=== PATIENT | male | born 1970 | race Caucasian/White ===

== ENCOUNTER 2017-07-06 12:10 | Outpatient (RCR) | payer OTHER, MEDICAID, SELFPAY ==
--- NOTE | 2017-07-06 11:12 | PT.OTN ---
Current Diagnoses Stiffness of unspecified joint, not elsewhere classified (07/06/17) Weakness (07/06/17) Strain of muscle, fascia and tendon at neck level, subsequent encounter (07/06/17) Arthrodesis status (07/06/17) Transition note: On July 05, 2017 our therapy services consisting of Speech, Occupational, and Physical Therapy transitioned from the [employer] electronic documentation system to a new [employer] electronic documentation system.?? All documentation prior to July 05 can be found under [employer] saved data. From July 05 forward all medical record documentation will be in [employer] 6.1.
--- NOTE | 2017-07-06 13:04 | PT.OPPN ---
Current Diagnoses Stiffness of unspecified joint, not elsewhere classified (07/06/17) Weakness (07/06/17) Strain of muscle, fascia and tendon at neck level, subsequent encounter (07/06/17) Arthrodesis status (07/06/17) Physical Therapy Progress Note PT-OP-A Visit Information Start: 07/06/17 12:42 Freq: Status: Active Protocol: Activity Type Activity Date Activity User E-Sign Co-Sign Detail Recorded Client Recorded Date Recorded By Document 07/06/17 12:43 [employer] [id number] 07/06/17 13:04 [facility] 07/06/17 12:43 Out-Patient Physical Therapy Visit Information [Visit Information] -Visit Type Progress Note -Visit Start Time 12:15 -Visit Stop Time 12:45 -Total Visit Minutes 30 -Visit Number 11 -Number of 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 Notes he has notices that he still turns his body a little bit when trying to look to the left, but it is better than it had been previously. -Patient Reported Progress Improving Patient Questionnaires [Neck Disability Index] -NDI Score 7/50 - 14% PT-OP-K Range of Motion Start: 07/06/17 12:42 Freq: Status: Active Protocol: Activity Type Activity Date Activity User E-Sign Co-Sign Detail Recorded Client Recorded Date Recorded By Document 07/06/17 12:43 [employer] [id number] 07/06/17 13:04 [facility] 07/06/17 12:43 Cervical Spine Range of Motion [Cervical Spine] Active Degrees -Testing Position Sitting -Flexion 42 -Extension 50 -Rotation Left 40 -Rotation Right 50 -Lateral Flexion Left 40 -Lateral Flexion Right 50 -ROM Limitations Soft Tissue Tightness PT-OP-M Strength Start: 07/06/17 12:42 Freq: Status: Active Protocol: Activity Type Activity Date Activity User E-Sign Co-Sign Detail Recorded Client Recorded Date Recorded By Document 07/06/17 12:43 [facility] [id number] 07/06/17 13:04 [facility] 07/06/17 12:43 Cervical Spine Strength [Cervical Spine Manual Muscle Testing] -Testing Position Supine -Flexion (C1-2) 4+ Good+ -Extension 4+ Good+ Shoulder Strength [Shoulder Manual Muscle Testing] Left -Flexion 5 Normal -Abduction (C5) 5 Normal -External Rotation 5 Normal -Internal Rotation 5 Normal PT-OP-T Assessment and Plan Start: 07/06/17 12:42 Freq: Status: Active Protocol: Activity Type Activity Date Activity User E-Sign Co-Sign Detail Recorded Client Recorded Date Recorded By Document 07/06/17 12:43 [facility] [id number] 07/06/17 13:04 [facility] 07/06/17 12:43 Physical Therapy Assessment [Rehab Potential] -Rehabilitation Potential Excellent [Goals] Five -Impairment Scapulothoracic Rhythm dysfunction -[employer] Goal (LTG) Pt to display WNL scapulothoracic rhythm Four -Impairment Left Shoulder weakness -[facility] Goal (LTG) Pt to increased left shoulder scaption, abduction, flexion, ER, and IR to 4+/5 -LTG Duration 2 weeks Three -Impairment Cervical weakness -[employer] Goal (LTG) Pt to increase cervical flexion and extension MMT to 4+/5 -LTG Duration 2 weeks Two -Impairment Limited Cervical ROM -[facility] Goal (LTG) Pt to increase AROM of cervical flexion and L rotation to 45 degrees. Pt to increase PROM of cervical L rotation to 45 degrees -LTG Duration 2 weeks One -Impairment NDI Questionaire -[employer] Goal (LTG) Pt to score 5/ 50 - 10% on NDI -LTG Duration 2 weeks [Progress Towards Goals] -Progress Towards Goals Progressing Toward Goals Goals Met -Progress Comments Goals #3, 4, and 5 met Goal #1 - nearly met 7/50 - 14% Goal #2 - nearly met, AROM cervical flexion 42 degrees, AROM cervical left rotation 40 degrees [Assessment Summary] -Assessment Pt doing well, has been working out at the gym and returned to his previous workload. Pt is planning to start getting semi-regular massages,which will help him control his tone. Pt has met nearly all goals, and is appropriate for discharge at this time. No further appointments are scheduled. Physical Therapy Plan [Frequency and Duration] -Frequency of Treatment discharge -Plan of Care Start Date 07/06/17 -Plan of Care End Date 07/06/17 [Discharge Physical Therapy] -Discharge Reasons Goals Met -Discharge Comments D/C from skilled therapy at this time. No further out patient therapy indicated
--- NOTE | 2017-07-07 10:30 | PT.OPPOC ---
Current Diagnoses Stiffness of unspecified joint, not elsewhere classified (07/06/17) Weakness (07/06/17) Strain of muscle, fascia and tendon at neck level, subsequent encounter (07/06/17) Arthrodesis status (07/06/17) Plan Of Care PT-OP-T Assessment and Plan Start: 07/06/17 12:42 Freq: Status: Active Protocol: Activity Type Activity Date Activity User E-Sign Co-Sign Detail Recorded Client Recorded Date Recorded By Document 07/06/17 12:43 [facility] [id number] 07/06/17 13:04 [facility] 07/06/17 12:43 Physical Therapy Assessment [Rehab Potential] -Rehabilitation Potential Excellent [Goals] Five -Impairment Scapulothoracic Rhythm dysfunction -[employer] Goal (LTG) Pt to display WNL scapulothoracic rhythm Four -Impairment Left Shoulder weakness -[employer] Goal (LTG) Pt to increased left shoulder scaption, abduction, flexion, ER, and IR to 4+/5 -LTG Duration 2 weeks Three -Impairment Cervical weakness -[employer] Goal (LTG) Pt to increase cervical flexion and extension MMT to 4+/5 -LTG Duration 2 weeks Two -Impairment Limited Cervical ROM -[employer] Goal (LTG) Pt to increase AROM of cervical flexion and L rotation to 45 degrees. Pt to increase PROM of cervical L rotation to 45 degrees -LTG Duration 2 weeks One -Impairment NDI Questionaire -Long-Term Goal (LTG) Pt to score 5/ 50 - 10% on NDI -LTG Duration 2 weeks [Progress Towards Goals] -Progress Towards Goals Progressing Toward Goals Goals Met -Progress Comments Goals #3, 4, and 5 met Goal #1 - nearly met 7/50 - 14% Goal #2 - nearly met, AROM cervical flexion 42 degrees, AROM cervical left rotation 40 degrees [Assessment Summary] -Assessment Pt doing well, has been working out at the gym and returned to his previous workload. Pt is planning to start getting semi-regular massages,which will help him control his tone. Pt has met nearly all goals, and is appropriate for discharge at this time. No further appointments are scheduled. Physical Therapy Plan [Frequency and Duration] -Frequency of Treatment discharge -Plan of Care Start Date 07/06/17 -Plan of Care End Date 07/06/17 [Discharge Physical Therapy] -Discharge Reasons Goals Met -Discharge Comments D/C from skilled therapy at this time. No further out patient therapy indicated Plan of Care Dates Plan of Care Start Date 07/06/17 Plan of Care End Date 07/06/17 Please Sign and Return: I have reviewed this Plan of Care and certify that the skilled therapy services above are required to meet the patient???s needs. Physician Signature Date Printed Name and Credentials
== END 2017-07-07 10:48 ==
LOC: PHYS 12:10
PROVIDERS: Family Provider Family Medicine; PCP Family Medicine; Visit Provider Orthopaedic Surgery
DX: Z98.1 Arthrodesis status (principal); S16.1XXD Strain of muscle, fascia and tendon at neck level, subsequent encounter; M25.60 Stiffness of unspecified joint, not elsewhere classified; R53.1 Weakness
CPT/HCPCS: 95831; 97140

== ENCOUNTER → 2018-02-13 14:37 | Outpatient (CLI) | payer OTHER, MEDICAID, SELFPAY ==
[2018-02-13 15:26] LABS: Alanine Aminotransferase 25 IU/L (21-72); Albumin 4.6 g/dL (3.5-5.0); Albumin Globulin Ratio 1.5 (1.0-2.8); Alkaline Phosphatase 42 U/L (38-126); Aspartate Aminotransferase 13 IU/L (17-59); BUN Creatinine Ratio 16.7 (6-22); Bilirubin Total 0.5 mg/dL (0.2-1.3); Blood Urea Nitrogen 15 mg/dL (9-20); Calcium 9.4 mg/dL (8.4-10.2); Carbon Dioxide 27 mmol/L (22-32); Chloride 104 mmol/L (98-107); Cholesterol 187 mg/dL (140-199); Estimated Glomerular Filt Rate > 60.0 mL/min (>60); Globulin 3.1 g/dL (1.7-4.1); Glucose 87 mg/dL (70-100); HDL Cholesterol 58 mg/dL (40-60); HEMOLYSIS < 15 (0-50); LDL Cholesterol Calculated 111 mg/dL (<100); Potassium 4.4 mmol/L (3.4-5.1); Sodium 144 mmol/L (137-145); Total Protein 7.7 g/dL (6.3-8.2); Triglycerides 90 mg/dL (35-150)
[2018-02-13 15:44] LABS: Appearance Urine UA CLEAR; Bilirubin Urine UA NEGATIVE (NEGATIVE); Color Urine UA YELLOW; Glucose Urine UA NEGATIVE (Normal); Ketones Urine UA NEGATIVE (NEGATIVE); Leukocyte Esterase Urine UA NEGATIVE (NEGATIVE); Nitrite Urine UA NEGATIVE (Negative); Occult Blood Urine UA 1+ (Negative); Protein Urine UA NEGATIVE (Negative); Specific Gravity Urine UA >=1.030 (1.000-1.035); Urobilinogen Urine UA 0.2 E.U./dL (0.2)
[2018-02-13 15:54] LABS: Thyroid Stimulating Hormone 1.46 uIU/mL (0.47-4.68)
[2018-02-13 16:01] LABS: Add Manual Diff / Slide Review NO; Basophils Percent Auto 1.2 % (0-2); Eosinophils Percent Auto 6.7 % (2-4); Hematocrit 40.1 % (41-53); Hemoglobin 13.6 g/dL (13.5-17.5); Mean Corpuscular Hemoglobin 30.3 PG (26-34); Mean Corpuscular Volume 89.2 fL (80-100); Monocytes Percent Auto 9.7 % (3-14); Neutrophils Absolute Auto 1800 /uL (3000-5900); Neutrophils Percent Auto 47.4 % (50-75); Platelet Count 210 X10^3/uL (150-400); White Blood Cell Count 3.7 X10^3/uL (4.5-11.0)
[2018-02-21 13:41] LABS: ANA Screen POSITIVE (Negative); DNA Antibody Crithidia IFA NEGATIVE (Negative); Rheumatoid Factor <14 IU/mL; Sjogren Antiboday SS-A >8.0 POS AI (<1.0 NEGATIVE); Sjogren Antiboday SS-B <1.0 NEG AI (<1.0 NEGATIVE); Sm Antibody <1.0 NEG AI (<1.0 NEGATIVE); Sm/RNP Antibody <1.0 NEG AI (<1.0 NEGATIVE)
== END ==
PROVIDERS: PCP Family Medicine; Visit Provider Family Medicine
DX: R07.9 Chest pain, unspecified (principal); Z13.220 Encounter for screening for lipoid disorders; Z51.81 Encounter for therapeutic drug level monitoring
CPT/HCPCS: 36415; 80053; 80061; 81003; 84443; 85025; 86038; 86430

== ENCOUNTER → 2018-02-23 14:43 | Outpatient (CLI) | payer OTHER, MEDICAID, SELFPAY ==
--- NOTE | 2018-02-23 15:40 | PM.TREADMILL ---
Cardiac Stress Test Report Referral & Results Date Patient Seen: 02/23/18 Requesting provider: Lakesha Joseph Indication: Chest pain Rest ECG: Unremarkable Procedure Note: Today following both written and verbal informed consent, the patient was exercised according to a standard [facility] protocol. The patient exercised for a total of 10 min 22 sec achieving a maximum heart rate of 173. Patient's maximum systolic blood pressure was 220. This was an estimated 12.[address]-T segment changes identified Normal heart rate blood pressure response Functional aerobic impairment rates about 5% on the active scale Rare PVCs were identified Impression: Normal treadmill without evidence of ischemia Average exercise capacity Please note: Actual ECG tracings can be found in the PACS system.
== END ==
PROVIDERS: PCP Family Medicine; Visit Provider Family Medicine
DX: R07.9 Chest pain, unspecified (principal)
CPT/HCPCS: 93016; 93017; 93018

== ENCOUNTER → 2018-03-23 09:58 | Outpatient (CLI) | payer OTHER, MEDICAID, SELFPAY | PROVIDERS: PCP Family Medicine; Visit Provider Family Medicine | DX: M50.90 Cervical disc disorder, unspecified, unspecified cervical region (principal); R20.0 Anesthesia of skin ==

== ENCOUNTER → 2018-03-23 11:04 | Outpatient (CLI) | payer OTHER, MEDICAID, SELFPAY ==
[2018-03-23 12:46] LABS: Appearance Urine UA CLEAR; Bilirubin Urine UA NEGATIVE (NEGATIVE); Color Urine UA YELLOW; Glucose Urine UA NEGATIVE (Negative); Ketones Urine UA NEGATIVE (NEGATIVE); Leukocyte Esterase Urine UA NEGATIVE (NEGATIVE); Nitrite Urine UA NEGATIVE (Negative); Occult Blood Urine UA TRACE-LYSED (Negative); Protein Urine UA NEGATIVE (Negative); Urobilinogen Urine UA 0.2 E.U./dL (0.2)
== END ==
PROVIDERS: PCP Family Medicine; Visit Provider Family Medicine
DX: R31.9 Hematuria, unspecified (principal)
CPT/HCPCS: 81003; 95885; 95912

== ENCOUNTER → 2018-05-18 13:27 | Outpatient (CLI) | payer OTHER, MEDICAID, SELFPAY ==
--- NOTE | 2018-05-18 13:30 | DI.RAD.S_ITS ---
PROCEDURE: XR CHEST 2V INDICATIONS: Shortness of breath TECHNIQUE: 2 views of the chest were acquired. COMPARISON: [facility], , CHEST 2 VIEW, 04/16/2015, 16:20. FINDINGS: Surgical changes and devices: None. Lungs and pleura: Lungs are clear. No pleural effusions or pneumothorax. Mediastinum: Mediastinal contours are normal. Heart size is normal. Bones and chest wall: No suspicious bony abnormalities. Soft tissues appear unremarkable. IMPRESSION: No acute cardiopulmonary disease. Dictated by: Irvin Stevens M.D. on 05/18/2018 at 16:30 Approved by: Irvin Stevens M.D. on 05/18/2018 at 16:30
== END ==
PROVIDERS: PCP Family Medicine; Visit Provider Family Medicine
DX: R06.02 Shortness of breath (principal)
CPT/HCPCS: 71046

== ENCOUNTER → 2019-01-19 13:20 | Outpatient (CLI) | payer OTHER, MEDICAID, SELFPAY ==
[2019-01-19 14:44] LABS: Alanine Aminotransferase 23 IU/L (<50); Albumin 4.7 g/dL (3.5-5.0); Albumin Globulin Ratio 1.4 (1.0-2.8); Alkaline Phosphatase 44 U/L (38-126); Aspartate Aminotransferase 20 IU/L (17-59); Bilirubin Total 0.7 mg/dL (0.2-1.3); Blood Urea Nitrogen 18 mg/dL (9-20); Calcium 9.4 mg/dL (8.4-10.2); Carbon Dioxide 28 mmol/L (22-32); Chloride 102 mmol/L (98-107); Cholesterol 219 mg/dL (140-199); Estimated Glomerular Filt Rate > 60.0 mL/min (>60); Globulin 3.4 g/dL (1.7-4.1); Glucose 103 mg/dL (70-100); HDL Cholesterol 45 mg/dL (40-60); HEMOLYSIS < 15 (0-50); LDL Cholesterol Calculated 159 mg/dL (<100); Potassium 4.1 mmol/L (3.4-5.1); Sodium 139 mmol/L (137-145); Total Protein 8.1 g/dL (6.3-8.2); Triglycerides 77 mg/dL (35-150)
== END ==
PROVIDERS: PCP Family Medicine; Visit Provider Family Medicine
DX: F41.9 Anxiety disorder, unspecified (principal); R00.9 Unspecified abnormalities of heart beat; R03.0 Elevated blood-pressure reading, without diagnosis of hypertension; R07.89 Other chest pain
CPT/HCPCS: 36415; 80053; 80061; 84443

== ENCOUNTER 2019-03-18 19:52 | Emergency (ER) | payer OTHER, MEDICAID, SELFPAY ==
--- NOTE | 2019-03-18 20:05 | ED.GENADULT ---
HPI - General Adult General Chief complaint: Urogenital-Male Stated complaint: thinks he has a kidney stone Time Seen by Provider: 03/18/19 20:03 Source: patient Mode of arrival: Ambulatory Limitations: no limitations History of Present Illness HPI narrative: 48-year-old male here for evaluation of left-sided lower back/flank pain. He states that has been going on for the past 24-48 hours. He states that it is a baseline discomfort and then spikes. Described as cramping sensation. No urinary symptoms. No bowel changes. No rashes. No prior abdominal surgeries. No vomiting. He was concerned that potentially has a kidney stone. Has never had a kidney stone in the past Related Data Previous Rx's Medication Instructions Recorded citalopram 10 mg tablet 10 mg PO DAILY #30 tab 12/04/18 cyclobenzaprine 10 mg tablet 10 mg PO DAILY PRN #30 tab 12/04/18 oxycodone-acetaminophen 10 mg-325 1 tab PO Q6H PRN #30 tab 12/04/18 mg tablet ibuprofen 800 mg tablet 800 mg PO TID #90 tab 03/14/19 Allergies Allergy/AdvReac Type Severity Reaction Status Date / Time amoxicillin [AMOXICILLIN] Allergy Severe HIVES A Verified 01/18/19 14:03 CHILD Review of Systems Constitutional Constitutional: Denies fever(s) and Denies headache(s) ENT Ears, Nose, Mouth, and Throat: Denies headache(s) Cardiovascular Cardiovascular: Denies chest pain and Denies dyspnea Respiratory Respiratory: Denies dyspnea Gastrointestinal Gastrointestinal: Denies abdominal pain, Denies change in stool character, Denies nausea and Denies vomiting Genitourinary Genitourinary: Denies dysuria Musculoskeletal Musculoskeletal: Denies myalgias and Denies arthralgias Integumentary/Breasts Skin/Breast: Denies rash Neurologic Neurologic: Denies behavioral changes and Denies headache(s) Psychiatric Psychiatric: Denies behavioral changes Hematologic/Lymphatic Hematologic/Lymphatic: Denies easy bleeding and Denies easy bruising Patient History Medical History Atypical chest pain (Acute) Cervical disc herniation (Resolved Unknown) Hemorrhoids (Acute) Hx of pancreatitis (Resolved 2013) Insomnia (Acute) Neck pain (Chronic Unknown) Rectal bleeding (Acute) Shoulder pain (Resolved Unknown) Surgical History History of fusion of cervical spine (Resolved 2004) Hx of arthroscopy of shoulder (Resolved 07/2014) Hx of cervical discectomy (Resolved 03/2017) Social History marital status: household members: spouse and family occupational status: employed Smoking Status: Former smoker alcohol intake: never substance use type: does not use Smoking Status: Former smoker Substance Use Type: does not use Exam Initial Vital Signs Initial Vital Signs: Vital Signs Temperature 97.9 F 03/18/19 20:06 Pulse Rate 98 H 03/18/19 20:06 Respiratory Rate 18 03/18/19 20:06 Blood Pressure 160/94 H 03/18/19 20:06 Pulse Oximetry 97 03/18/19 20:06 Const General: cooperative and healthy appearing HENMT Head: normal to inspection and normocephalic Resp Effort & Inspection: normal respiratory effort Auscultation: clear to auscultation bilaterally Cardio Rate: regular rate Rhythm: regular rhythm GI Inspection: non-distended Palpation: soft Back/Spine/Pelvis Back: No CVA tenderness Thoracic/Lumbar Spine: No thoraco-lumbar spasm, No thoracic spinal tenderness and No lumbar spinal tenderness Skin Lesions: no lesions Rashes: no rashes Neuro General: alert and awake Cognition: normal cognition Speech: speech normal Extrem General: normal to inspection and capillary refill normal Psych Appearance: grossly normal and well kempt Course Orders Ordered: ED Orders 03/18/19 20:06 CT kidney ureter bladder (KUB) Stat 03/18/19 20:10 Urine Microscopic Stat 03/18/19 20:13 Basic Metabolic Panel Stat Complete Blood Count AUTO DIFF Stat Discontinued Medications Ketorolac Tromethamine (Toradol) 30 mg IV NOW ONE Stop: 03/18/19 20:06 Last Admin: 03/18/19 20:22 Dose: 30 mg Documented by: MARCO ANTONIO Vital Signs Vital signs: Vital Signs - 8 hr 03/18/19 20:06 03/18/19 21:05 Temperature 97.9 F Pulse Rate 98 H 77 Respiratory Rate 18 14 Blood Pressure 160/94 H 132/84 Pulse Oximetry 97 99 Medical Decision Making Lab Data Lab results reviewed: Yes I reviewed the patient's lab results. Result diagrams: 03/18/19 20:13 03/18/19 20:13 Labs: Lab Results 03/18/19 03/18/19 03/18/19 Range/Units 20:10 20:13 20:13 WBC 4.9 (4.5-11.0) X10^3/uL RBC 4.48 L (4.5-5.9) X10^6/uL Hgb 13.5 (13.5-17.5) g/dL Hct 39.1 L (41-53) % MCV 87.3 (80-100) fL MCH 30.3 (26-34) PG MCHC 34.7 (30-36) % RDW 12.9 (11.6-14.8) % Plt Count 216 (150-400) X10^3/uL Neut % (Auto) 57.8 (50-75) % Lymph % (Auto) 26.3 (25-40) % [place] % (Auto) 8.9 (3-14) % Eos % (Auto) 6.1 H (2-4) % Baso % (Auto) 0.9 (0-2) % Neut # (Auto) 2800 (3182-5150) /uL Lymph # (Auto) 1300 (0268-0844) /uL [place] # (Auto) 400 (0-900) /uL Eos # (Auto) 300 (0-450) /uL Baso # (Auto) 0 (0-100) /uL Sodium 139 (137-145) mmol/L Potassium 4.2 (3.4-5.1) mmol/L Chloride 105 (98-107) mmol/L Carbon Dioxide 25 (22-32) mmol/L BUN 20 (9-20) mg/dL Creatinine 1.00 (0.66-1.25) mg/dL Estimated GFR > 60.0 (>60) mL/min BUN/Creatinine Ratio 20.0 (6-22) Glucose 85 (70-100) mg/dL Calcium 9.2 (8.4-10.2) mg/dL Urine RBC 0-1/hpf (0-5/HPF) Urine WBC 0-1/hpf (0-5/HPF) Ur Squamous Epith Cells 0-1 /hpf (0-5/HPF) Amorphous Sediment 1+ Urine Bacteria None seen (None) Ur Culture Indicated? Cult not indicated Urine Dip Bedside Urine Glucose Negative Bedside Urine Bilirubin - Negative Bedside Urine Ketone - Negative Urine Specific [place] 1.020 Bedside Urine Occult Blood +/- Bedside Urine pH 7.0 Bedside Urine Protein - Negative Bedside Urine Urobilinogen - Negative Bedside Urine Nitrite - Negative Bedside Urine Leukocytes - Negative Esterase Point of care testing: Urine Dip Bedside Urine Glucose Negative Bedside Urine Bilirubin - Negative Bedside Urine Ketone - Negative Urine Specific [place] 1.020 Bedside Urine Occult Blood +/- Bedside Urine pH 7.0 Bedside Urine Protein - Negative Bedside Urine Urobilinogen - Negative Bedside Urine Nitrite - Negative Bedside Urine Leukocytes - Negative Esterase Imaging Data CT scan - abdomen/pelvis: Radiologist's Impression: [address] [address] [address] Scan Report Signed Patient: Chan Talley GMR#: [id number] : 1970Acct:[id number] Age/Sex: 48 / MDate of Service: 03/18/19 Loc: ED Accession Number: [id number] Procedure: CT kidney ureter bladder (KUB) Ordering Provider: Jose Ragsdale D.O. PROCEDURE: CT KIDNEY URETER BLADDER (KUB) INDICATIONS: Eval for ureteral stone TECHNIQUE: Noncontrast 5 mm thick sections acquired from the diaphragms to the symphysis. 5 mm thick coronal and sagittal reformats were then performed. For radiation dose reduction, the following was used: automated exposure control, adjustment of mA and/or kV according to patient size. COMPARISON: None. FINDINGS: Image quality: Excellent. Lung bases: Lung bases are clear. Heart size is normal. Urinary system: Both kidneys are normal in size. No kidney stones. No hydronephrosis or perinephric fat stranding. Both ureters appear non-dilated throughout their expected courses. Bladder wall thickness is normal; no calcified bladder stones. Other solid organs: Liver is normal in size. Gallbladder is unremarkable. Pancreas is normal in contours. Spleen is normal in size. No adrenal nodules. Peritoneum and bowel: Unenhanced bowel loops demonstrate normal wall thickness and caliber. The appendix is thin walled and gas filled. No free fluid or air. Nodes and vessels: No retroperitoneal or mesenteric adenopathy by size criteria. Aorta and inferior vena cava are normal in caliber. Abdominal wall: No ventral hernias. Pelvis: No free pelvic fluid. No inguinal hernias or adenopathy. Bones: No suspicious bony lesions. No vertebral body compression fractures. IMPRESSION: 1. No nephrolithiasis, hydronephrosis, ureterolithiasis, or hydroureter. 2. No acute intra-abdominal findings. Normal appendix. Dictated by: Cyndie Gregg M.D. on 03/18/2019 at 20:21 Approved by: Cyndie Gregg M.D. on 03/18/2019 at 20:29 MDM Narrative Medical decision making narrative: CT scan shows no signs of kidney stone. Urinalysis unremarkable. No skin rashes concerning for zoster. Creatinine is unremarkable. The area where he points to pain is in his left lower back. Lumbar region. Suspect this is musculoskeletal. Discussed the use of anti-inflammatories. Patient expressed understanding and agreement plan. Discharge Plan Departure Patient Disposition: Home Clinical Impression: Lower back pain Qualifiers: Chronicity: acute Back pain laterality: left Sciatica presence: without sciatica Qualified Code(s): M54.5 - Low back pain Discharge Date/Time: 03/18/19 21:05 Instructions: DI for Low Back Pain Activity Restrictions/Additional Instructions: Recommend light stretching and heat and/or ice and anti-inflammatories. Contact your primary provider for follow-up. Return to the emergency department for any new or worsening symptoms Prescriptions: No Action ibuprofen 800 mg tablet 800 mg PO TID Qty: 90 RF: 0 citalopram [Celexa] 10 mg tablet 10 mg PO DAILY Qty: 30 RF: 2 cyclobenzaprine 10 mg tablet 10 mg PO DAILY PRN (Reason: muscle spasm) Qty: 30 RF: 2 oxycodone-acetaminophen 10-325 mg tablet 1 tab PO Q6H PRN (Reason: pain) Qty: 30 RF: 0 Referrals: Lakesha Joseph DO [Primary Care Provider] -
[2019-03-18 20:06] VITALS: BP 160/94; PULSE 98; RESP 18; TEMP 36.6; O2SAT 97; BMI 26.4
[2019-03-18 20:20] LABS: Add Manual Diff / Slide Review NO; Basophils Absolute Auto 0 /uL (0-100); Basophils Percent Auto 0.9 % (0-2); Eosinophils Absolute Auto 300 /uL (0-450); Eosinophils Percent Auto 6.1 % (2-4); Hematocrit 39.1 % (41-53); Hemoglobin 13.5 g/dL (13.5-17.5); Lymphocytes Absolute Auto 1300 /uL (1100-4500); Lymphocytes Percent Auto 26.3 % (25-40); Mean Corpuscular HGB Conc 34.7 % (30-36); Mean Corpuscular Hemoglobin 30.3 PG (26-34); Mean Corpuscular Volume 87.3 fL (80-100); Monocytes Absolute Auto 400 /uL (0-900); Monocytes Percent Auto 8.9 % (3-14); Neutrophils Absolute Auto 2800 /uL (1500-7000); Neutrophils Percent Auto 57.8 % (50-75); Platelet Count 216 X10^3/uL (150-400); Red Blood Cell Count 4.48 X10^6/uL (4.5-5.9); Red Cell Distribution Width 12.9 % (11.6-14.8); White Blood Cell Count 4.9 X10^3/uL (4.5-11.0)
[2019-03-18 20:20] LABS: Bacteria Urine None Seen
[2019-03-18] MEDS: KETOROLAC 60 MG/2 ML VIAL 30 MG IV (20:22)
[2019-03-18 20:28] LABS: Amorphous Sediment Urine 1+; Culture Indicated Urine Cult Not Indicated; RBC Urine 0-1/HPF (0-5/HPF); Squamous Epithelial Cell Urine 0-1 /HPF (0-5/HPF); WBC Urine 0-1/HPF (0-5/HPF)
[2019-03-18 20:32] LABS: Blood Urea Nitrogen 20 mg/dL (9-20); Calcium 9.2 mg/dL (8.4-10.2); Carbon Dioxide 25 mmol/L (22-32); Chloride 105 mmol/L (98-107); Estimated Glomerular Filt Rate > 60.0 mL/min (>60); Glucose 85 mg/dL (70-100); HEMOLYSIS < 15 (0-50); Potassium 4.2 mmol/L (3.4-5.1); Sodium 139 mmol/L (137-145)
[2019-03-18 21:05] VITALS: BP 132/84; PULSE 77; RESP 14; O2SAT 99
== END 2019-03-18 21:05 | disposition home or self-care (01) ==
PROVIDERS: Emergency Provider Emergency Medicine; PCP Family Medicine
DX: M54.5 Low back pain (principal)
CPT/HCPCS: 36415; 74176; 80048; 81003; 81015; 85025; 96374; 99284; J1885

== ENCOUNTER 2019-08-24 11:42 | Emergency (ER) | payer OTHER, MEDICAID, SELFPAY ==
[2019-08-24] VITALS (8 sets, daily range): BP systolic 122–145; BP diastolic 63–82; PULSE 64–79; RESP 12–18; TEMP 36.1; O2SAT 94–98
[2019-08-24 11:58] LABS: Add Manual Diff / Slide Review NO; Basophils Absolute Auto 100 /uL (0-100); Basophils Percent Auto 0.5 % (0-2); Eosinophils Absolute Auto 200 /uL (0-450); Eosinophils Percent Auto 1.7 % (2-4); Hematocrit 44.1 % (41-53); Hemoglobin 15.6 g/dL (13.5-17.5); Lymphocytes Absolute Auto 1900 /uL (1100-4500); Lymphocytes Percent Auto 18.2 % (25-40); Mean Corpuscular HGB Conc 35.3 % (30-36); Mean Corpuscular Hemoglobin 30.6 PG (26-34); Mean Corpuscular Volume 86.7 fL (80-100); Monocytes Absolute Auto 700 /uL (0-900); Monocytes Percent Auto 7.1 % (3-14); Neutrophils Absolute Auto 7600 /uL (1500-7000); Neutrophils Percent Auto 72.5 % (50-75); Platelet Count 257 X10^3/uL (150-400); Red Blood Cell Count 5.09 X10^6/uL (4.5-5.9); Red Cell Distribution Width 13.6 % (11.6-14.8); White Blood Cell Count 10.5 X10^3/uL (4.5-11.0)
[2019-08-24 12:00] LABS: INR 0.9 (0.9-1.3); Prothrombin Time 9.9 SECONDS (10.1-12.7)
[2019-08-24 12:02] LABS: PTT Partial Thromboplastin Tim 32 SECONDS (26.4-36.2)
[2019-08-24] MEDS: ONDANSETRON 4 MG/2 ML INJ (12:02)
[2019-08-24] MEDS: LORazepam 2 MG/ML INJ (12:02)
[2019-08-24] MEDS: SODIUM CHLORIDE 0.9% 1,000 ML 1000 ML IV ×2 (12:03→14:32)
[2019-08-24 12:04] LABS: Alanine Aminotransferase 28 IU/L (<50); Albumin 4.9 g/dL (3.5-5.0); Albumin Globulin Ratio 1.3 (1.0-2.8); Alkaline Phosphatase 73 U/L (38-126); Amylase 164 U/L (30-110); Aspartate Aminotransferase 30 IU/L (17-59); BUN Creatinine Ratio 15.4 (6-22); Bilirubin Total 0.5 mg/dL (0.2-1.3); Blood Urea Nitrogen 14 mg/dL (9-20); Calcium 9.9 mg/dL (8.4-10.2); Carbon Dioxide 18 mmol/L (22-32); Chloride 106 mmol/L (98-107); Creatine Kinase 147 U/L (55-170); Estimated Glomerular Filt Rate > 60.0 mL/min (>60); Globulin 3.8 g/dL (1.7-4.1); Glucose 162 mg/dL (70-100); HEMOLYSIS < 15 (0-50); Lipase 289 U/L (23-300); Potassium 3.2 mmol/L (3.4-5.1); Sodium 140 mmol/L (137-145); Total Protein 8.7 g/dL (6.3-8.2)
[2019-08-24 12:15] LABS: Troponin I < 0.012 ng/mL (0.01-0.034)
[2019-08-24 12:19] LABS: CKMB % Relative Index 0.9 % (1.5-5.0); Creatine Kinase MB 1.35 ng/mL (<2.37)
[2019-08-24 12:55] LABS: Lactate (Lactic Acid) 2.3 mmol/L (0.7-2.1)
--- NOTE | 2019-08-24 13:20 | DI.CT.S_ITS ---
PROCEDURE: CT ABDOMEN PELVIS W CON INDICATIONS: severe abd pain TECHNIQUE: After the administration of intravenous contrast, 5 mm thick sections acquired from the diaphragm to the symphysis. 5 mm coronal and sagittal reformats were acquired. For radiation dose reduction, the following was used: automated exposure control, adjustment of mA and/or kV according to patient size. COMPARISON: [facility], CT, CT KIDNEY URETER BLADDER (KUB), 03/18/2019, 20:11. FINDINGS: Image quality: Excellent. ABDOMEN: Lung bases: Lung bases are clear. Heart size is normal. Solid organs: Liver is normal in size and enhancement. Gallbladder is within normal limits. Biliary system is non dilated. Pancreas enhances normally. Spleen is normal in size and enhancement. No adrenal nodules. Kidneys demonstrate normal size and enhancement, without hydronephrosis. Peritoneum and bowel: There is absence of the rectal mesenteric segment of the duodenum and inversion of the SMA/SMV relationship with SMA on the right and SMV on the left. Findings compatible with congenital mid gut malrotation. Several loops of proximal small bowel are slightly prominent measuring up to 3.4 cm with circumferential wall thickening. A few scattered diverticuli noted in the colon without evidence of diverticulitis. No free fluid or air. Nodes and vessels: No retroperitoneal or mesenteric adenopathy by size criteria. Aorta and inferior vena cava are normal in size. Miscellaneous: No ventral hernias. PELVIS: Genitourinary: Bladder wall thickness is normal. Miscellaneous: No inguinal hernias or adenopathy. Bones: No suspicious bony lesions. No vertebral body compression fractures. IMPRESSION: 1. Congenital mid gut malrotation. 2. Mild circumferential wall thickening and slight caliber prominence involving multiple loops of proximal small bowel compatible with nonspecific enteritis. 3. No evidence of intestinal volvulus identified in the current study. Please note intermittent intestinal volvulus cannot be excluded by CT. 4 paracolic diverticulosis without evidence of diverticulitis. 5. No free fluid or free air. 6. Findings discussed with Coreen Hoffman on 08/24/2019 at 1435 hrs. Dictated by: Marianna Stinson MD, PhD on 08/24/2019 at 14:17 Approved by: Marianna Stinson MD, PhD on 08/24/2019 at 14:41
[2019-08-24] MEDS: HYDROMORPHONE 1 MG INJ IV (13:23)
[2019-08-24] MEDS: ONDANSETRON 4 MG/2 ML INJ IV (13:23)
--- NOTE | 2019-08-24 13:44 | ED.ABDPAIN ---
HPI - Abdominal Pain <MARSHALL Duron-BC - Last Filed: 08/24/19 19:02> General Chief Complaint: Abdominal Pain Stated Complaint: n/v/d Time Seen by Provider: 08/24/19 11:50 Source: EMS Mode of arrival: EMS Limitations: no limitations History of Present Illness HPI narrative: The patient is a 48-year-old male former smoker with history of anxiety and abdominal pain who presents with a chief complaint of severe abdominal pain accompanied by nausea vomiting and diarrhea. This patient states that this happens whenever he eats ?crappy food late at night he states that yesterday he ate a bunch of junk food late at night, then started having GI upset. He presents by EMS, diaphoretic, denies any chest pain. He denies any fevers. He and his state that episodes such as this has happened several times, most recently 2 years ago. The patient states he has not smoked any marijuana today, but did smoke yesterday. He states that he has had full workups in the past including CT scans, colonoscopy them gallbladder workups in all come back negative. Related Data Previous Rx's Medication Instructions Recorded cyclobenzaprine 10 mg tablet 10 mg PO DAILY PRN #30 tab 12/04/18 oxycodone-acetaminophen 10 mg-325 1 tab PO Q6H PRN #30 tab 12/04/18 mg tablet ibuprofen 800 mg tablet 800 mg PO TID #90 tab 03/14/19 fluoxetine 20 mg capsule 20 mg PO DAILY #90 cap 07/04/19 Allergies Allergy/AdvReac Type Severity Reaction Status Date / Time amoxicillin [AMOXICILLIN] Allergy Severe HIVES A Verified 08/24/19 12:12 CHILD Review of Systems <SAPRKLE Duron - Last Filed: 08/24/19 19:02> Review of Systems Narrative: GENERAL: See HPI HEENT: Denies sinus pain, ear pain, sore throat, difficulty swallowing, dizziness. RESPIRATORY: Denies dyspnea, cough, wheezing, hemoptysis, sputum. CARDIOVASCULAR: Denies chest pain, palpitations, orthopnea, edema, GASTROINTESTINAL: See HPI : Denies dysuria, frequency, incontinence, hematuria, urinary retention. MUSCULOSKELETAL: denies weakness, joint pain, or bony pain SKIN: Denies rash, skin lesions, or other NEUROLOGIC: Denies weakness, headache, numbness, change in speech, confusion, seizures, incoordination. PSYCHIATRIC: No concerning psychosocial issues. 12 point review of systems is negative except for those stated above Patient History <SPARKLE Duron - Last Filed: 08/24/19 19:02> Medical History Anxiety (Acute) Atypical chest pain (Acute) Cervical disc herniation (Resolved Unknown) Hemorrhoids (Acute) Hx of pancreatitis (Resolved 2013) Insomnia (Acute) Neck pain (Chronic Unknown) Rectal bleeding (Acute) Shoulder pain (Resolved Unknown) Vision changes (Acute) Surgical History History of fusion of cervical spine (Resolved 2004) Hx of arthroscopy of shoulder (Resolved 07/2014) Hx of cervical discectomy (Resolved 03/2017) Social History marital status: household members: spouse and family occupational status: employed Smoking Status: Former smoker Tobacco: How many years used: 7 alcohol intake: never substance use type: marijuana (~1 gram per month ) Smoking Status: Former smoker alcohol intake frequency: 0-2 drinks per day Substance Use Type: marijuana Exam <SPARKLE Duron - Last Filed: 08/24/19 19:02> Narrative Exam Narrative: GENERAL: This is a well-nourished, well-developed patient, appears uncomfortable HEAD: Atraumatic. Normocephalic. No temporal or scalp tenderness. EYES: Pupils equal round and reactive. Extraocular motions intact. No scleral icterus. No injection or drainage. ENT: Nose without bleeding, purulent drainage or septal hematoma. Throat without erythema, tonsillar hypertrophy or exudate. Uvula midline. Airway patent. NECK: Trachea midline. No JVD or lymphadenopathy. Supple, nontender, no meningeal signs. CARDIOVASCULAR: Regular rate and rhythm RESPIRATORY: Clear to auscultation. Breath sounds equal bilaterally. No wheezes, rales, or rhonchi. No cough. No increased respiratory effort. No accessory muscle use. GASTROINTESTINAL: Abdomen soft, diffusely tender, nondistended. No hepato-splenomegaly, or palpable masses. Active bowel sounds all 4 quadrants EXTREMITIES: No clubbing, cyanosis, or edema. No joint tenderness, effusion, or edema noted. BACK: Nontender without deformity or crepitance. No flank tenderness. NEURO: AOx3. SKIN: No rash or erythema visible skin Initial Vital Signs Initial Vital Signs: Vital Signs Temperature 97.0 F L 08/24/19 11:40 Pulse Rate 78 08/24/19 11:40 Respiratory Rate 18 08/24/19 11:40 Blood Pressure 142/78 H 08/24/19 11:40 Pulse Oximetry 98 08/24/19 11:40 <Mike Saravia MD - Last Filed: 08/24/19 21:42> Initial Vital Signs Initial Vital Signs: Vital Signs Temperature 97.0 F L 08/24/19 11:40 Pulse Rate 78 08/24/19 11:40 Respiratory Rate 18 08/24/19 11:40 Blood Pressure 142/78 H 08/24/19 11:40 Pulse Oximetry 98 08/24/19 11:40 Scores <SPARKLE Duron - Last Filed: 08/24/19 19:02> GCS Montesano coma scale eye opening: Spontaneous Ousmane coma scale verbal response: Orientated Ousmane coma scale motor response: Obey commands Montesano coma scale total score: 15 Course <SPARKLE Duron - Last Filed: 08/24/19 19:02> Orders Ordered: ED Orders 08/24/19 13:20 CT abdomen pelvis w con Stat 08/24/19 13:30 Urine Drug Screen, Rapid Stat Urine Microscopic Stat 08/24/19 17:00 Troponin & CK Cardiac Panel Stat Discontinued Medications Hydromorphone HCl (Dilaudid) 1 mg IV NOW ONE Stop: 08/24/19 13:15 Last Admin: 08/24/19 13:23 Dose: 1 mg Documented by: DAYANA Sodium Chloride (Normal Saline 0.9%) 1,000 mls @ 1,000 mls/hr IV BOLUS ONE Stop: 08/24/19 12:50 Last Infusion: 08/24/19 14:31 Dose: 0 mls/hr Documented by: Admin: 08/24/19 12:03 Dose: 1,000 mls/hr Documented by: DAYANA Sodium Chloride (Normal Saline 0.9%) 1,000 mls @ 1,000 mls/hr IV BOLUS ONE Stop: 08/24/19 14:37 Last Infusion: 08/24/19 17:43 Dose: 0 mls/hr Documented by: Infusion: 08/24/19 15:30 Dose: 1,000 mls/hr Documented by: Infusion: 08/24/19 14:35 Dose: 0 mls/hr Documented by: Admin: 08/24/19 14:32 Dose: 1,000 mls/hr Documented by: KATE Ondansetron HCl (Zofran) 4 mg IV NOW ONE Stop: 08/24/19 13:15 Last Admin: 08/24/19 13:23 Dose: 4 mg Documented by: DAYANA Vital Signs Vital signs: Vital Signs - 8 hr 08/24/19 14:47 08/24/19 15:30 08/24/19 16:30 Pulse Rate 64 64 74 Respiratory Rate 12 Blood Pressure Blood Pressure [Right Arm] 122/65 128/63 126/71 Pulse Oximetry 96 94 95 08/24/19 17:00 08/24/19 17:38 08/24/19 17:55 Pulse Rate 67 74 79 Respiratory Rate 14 14 Blood Pressure 126/71 Blood Pressure [Right Arm] 125/67 126/71 Pulse Oximetry 95 95 97 <Mike Saravia MD - Last Filed: 08/24/19 21:42> Orders Ordered: ED Orders 08/24/19 13:20 CT abdomen pelvis w con Stat 08/24/19 13:30 Urine Drug Screen, Rapid Stat Urine Microscopic Stat 08/24/19 17:00 Troponin & CK Cardiac Panel Stat Discontinued Medications Hydromorphone HCl (Dilaudid) 1 mg IV NOW ONE Stop: 08/24/19 13:15 Last Admin: 08/24/19 13:23 Dose: 1 mg Documented by: DAYANA Sodium Chloride (Normal Saline 0.9%) 1,000 mls @ 1,000 mls/hr IV BOLUS ONE Stop: 08/24/19 12:50 Last Infusion: 08/24/19 14:31 Dose: 0 mls/hr Documented by: Admin: 08/24/19 12:03 Dose: 1,000 mls/hr Documented by: DAYANA Sodium Chloride (Normal Saline 0.9%) 1,000 mls @ 1,000 mls/hr IV BOLUS ONE Stop: 08/24/19 14:37 Last Infusion: 08/24/19 17:43 Dose: 0 mls/hr Documented by: Infusion: 08/24/19 15:30 Dose: 1,000 mls/hr Documented by: Infusion: 08/24/19 14:35 Dose: 0 mls/hr Documented by: Admin: 08/24/19 14:32 Dose: 1,000 mls/hr Documented by: KATE Ondansetron HCl (Zofran) 4 mg IV NOW ONE Stop: 08/24/19 13:15 Last Admin: 08/24/19 13:23 Dose: 4 mg Documented by: DAYANA Vital Signs Vital signs: Vital Signs - 8 hr 08/24/19 14:47 08/24/19 15:30 08/24/19 16:30 Pulse Rate 64 64 74 Respiratory Rate 12 Blood Pressure Blood Pressure [Right Arm] 122/65 128/63 126/71 Pulse Oximetry 96 94 95 08/24/19 17:00 08/24/19 17:38 08/24/19 17:55 Pulse Rate 67 74 79 Respiratory Rate 14 14 Blood Pressure 126/71 Blood Pressure [Right Arm] 125/67 126/71 Pulse Oximetry 95 95 97 MDM - Abdominal Pain <MARSHALL Duron-BC - Last Filed: 08/24/19 19:02> Lab Data Attestation: I reviewed the patient's lab results. Result diagrams: 08/24/19 11:55 08/24/19 11:55 Labs: Lab Results 08/24/19 08/24/19 08/24/19 Range/Units 11:55 11:55 11:55 WBC 10.5 (4.5-11.0) X10^3/uL RBC 5.09 (4.5-5.9) X10^6/uL Hgb 15.6 (13.5-17.5) g/dL Hct 44.1 (41-53) % MCV 86.7 (80-100) fL MCH 30.6 (26-34) PG MCHC 35.3 (30-36) % RDW 13.6 (11.6-14.8) % Plt Count 257 (150-400) X10^3/uL Neut % (Auto) 72.5 (50-75) % Lymph % (Auto) 18.2 L (25-40) % Mcdonald % (Auto) 7.1 (3-14) % Eos % (Auto) 1.7 L (2-4) % Baso % (Auto) 0.5 (0-2) % Neut # (Auto) 7600 H (6130-7906) /uL Lymph # (Auto) 1900 (1697-1262) /uL Mcdonald # (Auto) 700 (0-900) /uL Eos # (Auto) 200 (0-450) /uL Baso # (Auto) 100 (0-100) /uL PT 9.9 L (10.1-12.7) SECONDS INR 0.9 (0.9-1.3) APTT 32 (26.4-36.2) SECONDS Sodium 140 (137-145) mmol/L Potassium 3.2 L (3.4-5.1) mmol/L Chloride 106 (98-107) mmol/L Carbon Dioxide 18 L (22-32) mmol/L BUN 14 (9-20) mg/dL Creatinine 0.91 (0.66-1.25) mg/dL Estimated GFR > 60.0 (>60) mL/min BUN/Creatinine Ratio 15.4 (6-22) Glucose 162 H (70-100) mg/dL Lactate (0.7-2.1) mmol/L Calcium 9.9 (8.4-10.2) mg/dL Total Bilirubin 0.5 (0.2-1.3) mg/dL AST 30 (17-59) IU/L ALT 28 (<50) IU/L Alkaline Phosphatase 73 (38-126) U/L Total Creatine Kinase 147 (55-170) U/L CK-MB (CK-2) 1.35 (<2.37) ng/mL CK-MB (CK-2) Rel Index 0.9 L (1.5-5.0) % Troponin I < 0.012 (0.01-0.034) ng/mL Total Protein 8.7 H (6.3-8.2) g/dL Albumin 4.9 (3.5-5.0) g/dL Globulin 3.8 (1.7-4.1) g/dL Albumin/Globulin Ratio 1.3 (1.0-2.8) Amylase 164 H (30-110) U/L Lipase 289 (23-300) U/L Urine RBC (0-5/HPF) Urine WBC (0-5/HPF) Urine Bacteria (None) Ur Culture Indicated? U Opiates 300ng/mL cut (Negative) Ur Oxycodone Screen (Negative) Urine Methadone Screen (Negative) Ur Barbiturates Screen (Negative) U Tricyclic Antidepress (Negative) Ur Phencyclidine Scrn (Negative) Ur Amphetamines Screen (Negative) U Methamphetamines Scrn (Negative) Ur MDMA Scrn (Ecstasy) (Negative) U Benzodiazepines Scrn (Negative) Urine Cocaine Screen (Negative) U Marijuana (THC) Screen (Negative) 08/24/19 08/24/19 08/24/19 Range/Units 12:39 13:30 13:30 WBC (4.5-11.0) X10^3/uL RBC (4.5-5.9) X10^6/uL Hgb (13.5-17.5) g/dL Hct (41-53) % MCV (80-100) fL MCH (26-34) PG MCHC (30-36) % RDW (11.6-14.8) % Plt Count (150-400) X10^3/uL Neut % (Auto) (50-75) % Lymph % (Auto) (25-40) % Mcdonald % (Auto) (3-14) % Eos % (Auto) (2-4) % Baso % (Auto) (0-2) % Neut # (Auto) (8941-7740) /uL Lymph # (Auto) (9493-1005) /uL Mcdonald # (Auto) (0-900) /uL Eos # (Auto) (0-450) /uL Baso # (Auto) (0-100) /uL PT (10.1-12.7) SECONDS INR (0.9-1.3) APTT (26.4-36.2) SECONDS Sodium (137-145) mmol/L Potassium (3.4-5.1) mmol/L Chloride (98-107) mmol/L Carbon Dioxide (22-32) mmol/L BUN (9-20) mg/dL Creatinine (0.66-1.25) mg/dL Estimated GFR (>60) mL/min BUN/Creatinine Ratio (6-22) Glucose (70-100) mg/dL Lactate 2.3 H (0.7-2.1) mmol/L Calcium (8.4-10.2) mg/dL Total Bilirubin (0.2-1.3) mg/dL AST (17-59) IU/L ALT (<50) IU/L Alkaline Phosphatase (38-126) U/L Total Creatine Kinase (55-170) U/L CK-MB (CK-2) (<2.37) ng/mL CK-MB (CK-2) Rel Index (1.5-5.0) % Troponin I (0.01-0.034) ng/mL Total Protein (6.3-8.2) g/dL Albumin (3.5-5.0) g/dL Globulin (1.7-4.1) g/dL Albumin/Globulin Ratio (1.0-2.8) Amylase (30-110) U/L Lipase (23-300) U/L Urine RBC 0-1/hpf (0-5/HPF) Urine WBC None seen (0-5/HPF) Urine Bacteria None seen (None) Ur Culture Indicated? Cult not indicated U Opiates 300ng/mL cut Negative (Negative) Ur Oxycodone Screen Negative (Negative) Urine Methadone Screen Negative (Negative) Ur Barbiturates Screen Negative (Negative) U Tricyclic Antidepress Negative (Negative) Ur Phencyclidine Scrn Negative (Negative) Ur Amphetamines Screen Negative (Negative) U Methamphetamines Scrn Negative (Negative) Ur MDMA Scrn (Ecstasy) Negative (Negative) U Benzodiazepines Scrn Negative (Negative) Urine Cocaine Screen Negative (Negative) U Marijuana (THC) Screen Positive H (Negative) 08/24/19 08/24/19 Range/Units 17:00 17:00 WBC (4.5-11.0) X10^3/uL RBC (4.5-5.9) X10^6/uL Hgb (13.5-17.5) g/dL Hct (41-53) % MCV (80-100) fL MCH (26-34) PG MCHC (30-36) % RDW (11.6-14.8) % Plt Count (150-400) X10^3/uL Neut % (Auto) (50-75) % Lymph % (Auto) (25-40) % Mcdonald % (Auto) (3-14) % Eos % (Auto) (2-4) % Baso % (Auto) (0-2) % Neut # (Auto) (0086-1016) /uL Lymph # (Auto) (7097-1294) /uL Mcdonald # (Auto) (0-900) /uL Eos # (Auto) (0-450) /uL Baso # (Auto) (0-100) /uL PT (10.1-12.7) SECONDS INR (0.9-1.3) APTT (26.4-36.2) SECONDS Sodium (137-145) mmol/L Potassium (3.4-5.1) mmol/L Chloride (98-107) mmol/L Carbon Dioxide (22-32) mmol/L BUN (9-20) mg/dL Creatinine (0.66-1.25) mg/dL Estimated GFR (>60) mL/min BUN/Creatinine Ratio (6-22) Glucose (70-100) mg/dL Lactate 0.7 (0.7-2.1) mmol/L Calcium (8.4-10.2) mg/dL Total Bilirubin (0.2-1.3) mg/dL AST (17-59) IU/L ALT (<50) IU/L Alkaline Phosphatase (38-126) U/L Total Creatine Kinase 95 (55-170) U/L CK-MB (CK-2) TNP (<2.37) ng/mL CK-MB (CK-2) Rel Index TNP (1.5-5.0) % Troponin I < 0.012 (0.01-0.034) ng/mL Total Protein (6.3-8.2) g/dL Albumin (3.5-5.0) g/dL Globulin (1.7-4.1) g/dL Albumin/Globulin Ratio (1.0-2.8) Amylase (30-110) U/L Lipase (23-300) U/L Urine RBC (0-5/HPF) Urine WBC (0-5/HPF) Urine Bacteria (None) Ur Culture Indicated? U Opiates 300ng/mL cut (Negative) Ur Oxycodone Screen (Negative) Urine Methadone Screen (Negative) Ur Barbiturates Screen (Negative) U Tricyclic Antidepress (Negative) Ur Phencyclidine Scrn (Negative) Ur Amphetamines Screen (Negative) U Methamphetamines Scrn (Negative) Ur MDMA Scrn (Ecstasy) (Negative) U Benzodiazepines Scrn (Negative) Urine Cocaine Screen (Negative) U Marijuana (THC) Screen (Negative) Point of care testing: Urine Dip Bedside Urine Glucose 500 mg/dl Bedside Urine Bilirubin - Negative Bedside Urine Ketone +++ 80 Urine Specific [place] 1.015 Bedside Urine Occult Blood +/- Bedside Urine pH 8.0 Bedside Urine Protein - Negative Bedside Urine Urobilinogen - Negative Bedside Urine Nitrite - Negative Bedside Urine Leukocytes - Negative Esterase Imaging Data CT scan - abdomen/pelvis: Radiologist's Impression: [address] [place] [id number] Scan Report Signed Patient: Chan Talley GMR#: [id number] : 1970Acct:[id number] Age/Sex: 48 / MDate of Service: 08/24/19 Loc: ED Accession Number: [id number] Procedure: CT abdomen pelvis w con Ordering Provider: Coreen Hoffman [facility]- PROCEDURE: CT ABDOMEN PELVIS W CON INDICATIONS: severe abd pain TECHNIQUE: After the administration of intravenous contrast, 5 mm thick sections acquired from the diaphragm to the symphysis. 5 mm coronal and sagittal reformats were acquired. For radiation dose reduction, the following was used: automated exposure control, adjustment of mA and/or kV according to patient size. COMPARISON: Located Within [facility], CT, CT KIDNEY URETER BLADDER (KUB), 03/18/2019, 20:11. FINDINGS: Image quality: Excellent. ABDOMEN: Lung bases: Lung bases are clear. Heart size is normal. Solid organs: Liver is normal in size and enhancement. Gallbladder is within normal limits. Biliary system is non dilated. Pancreas enhances normally. Spleen is normal in size and enhancement. No adrenal nodules. Kidneys demonstrate normal size and enhancement, without hydronephrosis. Peritoneum and bowel: There is absence of the rectal mesenteric segment of the duodenum and inversion of the SMA/SMV relationship with SMA on the right and SMV on the left. Findings compatible with congenital mid gut malrotation. Several loops of proximal small bowel are slightly prominent measuring up to 3.4 cm with circumferential wall thickening. A few scattered diverticuli noted in the colon without evidence of diverticulitis. No free fluid or air. Nodes and vessels: No retroperitoneal or mesenteric adenopathy by size criteria. Aorta and inferior vena cava are normal in size. Miscellaneous: No ventral hernias. PELVIS: Genitourinary: Bladder wall thickness is normal. Miscellaneous: No inguinal hernias or adenopathy. Bones: No suspicious bony lesions. No vertebral body compression fractures. IMPRESSION: 1. Congenital mid gut malrotation. 2. Mild circumferential wall thickening and slight caliber prominence involving multiple loops of proximal small bowel compatible with nonspecific enteritis. 3. No evidence of intestinal volvulus identified in the current study. Please note intermittent intestinal volvulus cannot be excluded by CT. 4 paracolic diverticulosis without evidence of diverticulitis. 5. No free fluid or free air. 6. Findings discussed with Coreen Hoffman on 08/24/2019 at 1435 hrs. Dictated by: Marianna Stinson MD, PhD on 08/24/2019 at 14:17 Approved by: Marianna Stinson MD, PhD on 08/24/2019 at 14:41 MDM Narrative Medical decision making narrative: The patient is a 48-year-old male presents with a chief complaint of severe belly pain, vomiting, diaphoresis. His initial troponin is negative, though his exam is very concerning as well as his obvious discomfort. He felt much improved after the above-stated therapies. His CT revealed a congenital midgut malrotation, which can lead to intermittent intestinal volvulus. However he has no acute surgical findings on his CT in the emergency department today. It is possible that he had an intermittent volvulus that recovered during his stay in the emergency department. He has a 2nd echo to troponin, and overall feels much improved able to keep down oral food and fluids. I discussed at length with the radiologist, who states that the patient has no acute surgical findings today for his abdomen, but would benefit from surgical follow-up. Patient have no questions or concerns upon discharge and state understanding return precautions as well as follow-up care <Mike Saravia MD - Last Filed: 08/24/19 21:42> Lab Data Labs: Lab Results 08/24/19 08/24/19 08/24/19 Range/Units 11:55 11:55 11:55 WBC 10.5 (4.5-11.0) X10^3/uL RBC 5.09 (4.5-5.9) X10^6/uL Hgb 15.6 (13.5-17.5) g/dL Hct 44.1 (41-53) % MCV 86.7 (80-100) fL MCH 30.6 (26-34) PG MCHC 35.3 (30-36) % RDW 13.6 (11.6-14.8) % Plt Count 257 (150-400) X10^3/uL Neut % (Auto) 72.5 (50-75) % Lymph % (Auto) 18.2 L (25-40) % Mcdonald % (Auto) 7.1 (3-14) % Eos % (Auto) 1.7 L (2-4) % Baso % (Auto) 0.5 (0-2) % Neut # (Auto) 7600 H (8619-1905) /uL Lymph # (Auto) 1900 (4118-2194) /uL Mcdonald # (Auto) 700 (0-900) /uL Eos # (Auto) 200 (0-450) /uL Baso # (Auto) 100 (0-100) /uL PT 9.9 L (10.1-12.7) SECONDS INR 0.9 (0.9-1.3) APTT 32 (26.4-36.2) SECONDS Sodium 140 (137-145) mmol/L Potassium 3.2 L (3.4-5.1) mmol/L Chloride 106 (98-107) mmol/L Carbon Dioxide 18 L (22-32) mmol/L BUN 14 (9-20) mg/dL Creatinine 0.91 (0.66-1.25) mg/dL Estimated GFR > 60.0 (>60) mL/min BUN/Creatinine Ratio 15.4 (6-22) Glucose 162 H (70-100) mg/dL Lactate (0.7-2.1) mmol/L Calcium 9.9 (8.4-10.2) mg/dL Total Bilirubin 0.5 (0.2-1.3) mg/dL AST 30 (17-59) IU/L ALT 28 (<50) IU/L Alkaline Phosphatase 73 (38-126) U/L Total Creatine Kinase 147 (55-170) U/L CK-MB (CK-2) 1.35 (<2.37) ng/mL CK-MB (CK-2) Rel Index 0.9 L (1.5-5.0) % Troponin I < 0.012 (0.01-0.034) ng/mL Total Protein 8.7 H (6.3-8.2) g/dL Albumin 4.9 (3.5-5.0) g/dL Globulin 3.8 (1.7-4.1) g/dL Albumin/Globulin Ratio 1.3 (1.0-2.8) Amylase 164 H (30-110) U/L Lipase 289 (23-300) U/L Urine RBC (0-5/HPF) Urine WBC (0-5/HPF) Urine Bacteria (None) Ur Culture Indicated? U Opiates 300ng/mL cut (Negative) Ur Oxycodone Screen (Negative) Urine Methadone Screen (Negative) Ur Barbiturates Screen (Negative) U Tricyclic Antidepress (Negative) Ur Phencyclidine Scrn (Negative) Ur Amphetamines Screen (Negative) U Methamphetamines Scrn (Negative) Ur MDMA Scrn (Ecstasy) (Negative) U Benzodiazepines Scrn (Negative) Urine Cocaine Screen (Negative) U Marijuana (THC) Screen (Negative) 08/24/19 08/24/19 08/24/19 Range/Units 12:39 13:30 13:30 WBC (4.5-11.0) X10^3/uL RBC (4.5-5.9) X10^6/uL Hgb (13.5-17.5) g/dL Hct (41-53) % MCV (80-100) fL MCH (26-34) PG MCHC (30-36) % RDW (11.6-14.8) % Plt Count (150-400) X10^3/uL Neut % (Auto) (50-75) % Lymph % (Auto) (25-40) % Mcdonald % (Auto) (3-14) % Eos % (Auto) (2-4) % Baso % (Auto) (0-2) % Neut # (Auto) (1268-4835) /uL Lymph # (Auto) (8516-4125) /uL Mcdonald # (Auto) (0-900) /uL Eos # (Auto) (0-450) /uL Baso # (Auto) (0-100) /uL PT (10.1-12.7) SECONDS INR (0.9-1.3) APTT (26.4-36.2) SECONDS Sodium (137-145) mmol/L Potassium (3.4-5.1) mmol/L Chloride (98-107) mmol/L Carbon Dioxide (22-32) mmol/L BUN (9-20) mg/dL Creatinine (0.66-1.25) mg/dL Estimated GFR (>60) mL/min BUN/Creatinine Ratio (6-22) Glucose (70-100) mg/dL Lactate 2.3 H (0.7-2.1) mmol/L Calcium (8.4-10.2) mg/dL Total Bilirubin (0.2-1.3) mg/dL AST (17-59) IU/L ALT (<50) IU/L Alkaline Phosphatase (38-126) U/L Total Creatine Kinase (55-170) U/L CK-MB (CK-2) (<2.37) ng/mL CK-MB (CK-2) Rel Index (1.5-5.0) % Troponin I (0.01-0.034) ng/mL Total Protein (6.3-8.2) g/dL Albumin (3.5-5.0) g/dL Globulin (1.7-4.1) g/dL Albumin/Globulin Ratio (1.0-2.8) Amylase (30-110) U/L Lipase (23-300) U/L Urine RBC 0-1/hpf (0-5/HPF) Urine WBC None seen (0-5/HPF) Urine Bacteria None seen (None) Ur Culture Indicated? Cult not indicated U Opiates 300ng/mL cut Negative (Negative) Ur Oxycodone Screen Negative (Negative) Urine Methadone Screen Negative (Negative) Ur Barbiturates Screen Negative (Negative) U Tricyclic Antidepress Negative (Negative) Ur Phencyclidine Scrn Negative (Negative) Ur Amphetamines Screen Negative (Negative) U Methamphetamines Scrn Negative (Negative) Ur MDMA Scrn (Ecstasy) Negative (Negative) U Benzodiazepines Scrn Negative (Negative) Urine Cocaine Screen Negative (Negative) U Marijuana (THC) Screen Positive H (Negative) 08/24/19 08/24/19 Range/Units 17:00 17:00 WBC (4.5-11.0) X10^3/uL RBC (4.5-5.9) X10^6/uL Hgb (13.5-17.5) g/dL Hct (41-53) % MCV (80-100) fL MCH (26-34) PG MCHC (30-36) % RDW (11.6-14.8) % Plt Count (150-400) X10^3/uL Neut % (Auto) (50-75) % Lymph % (Auto) (25-40) % Mcdonald % (Auto) (3-14) % Eos % (Auto) (2-4) % Baso % (Auto) (0-2) % Neut # (Auto) (1637-2256) /uL Lymph # (Auto) (4639-9771) /uL Mcdonald # (Auto) (0-900) /uL Eos # (Auto) (0-450) /uL Baso # (Auto) (0-100) /uL PT (10.1-12.7) SECONDS INR (0.9-1.3) APTT (26.4-36.2) SECONDS Sodium (137-145) mmol/L Potassium (3.4-5.1) mmol/L Chloride (98-107) mmol/L Carbon Dioxide (22-32) mmol/L BUN (9-20) mg/dL Creatinine (0.66-1.25) mg/dL Estimated GFR (>60) mL/min BUN/Creatinine Ratio (6-22) Glucose (70-100) mg/dL Lactate 0.7 (0.7-2.1) mmol/L Calcium (8.4-10.2) mg/dL Total Bilirubin (0.2-1.3) mg/dL AST (17-59) IU/L ALT (<50) IU/L Alkaline Phosphatase (38-126) U/L Total Creatine Kinase 95 (55-170) U/L CK-MB (CK-2) TNP (<2.37) ng/mL CK-MB (CK-2) Rel Index TNP (1.5-5.0) % Troponin I < 0.012 (0.01-0.034) ng/mL Total Protein (6.3-8.2) g/dL Albumin (3.5-5.0) g/dL Globulin (1.7-4.1) g/dL Albumin/Globulin Ratio (1.0-2.8) Amylase (30-110) U/L Lipase (23-300) U/L Urine RBC (0-5/HPF) Urine WBC (0-5/HPF) Urine Bacteria (None) Ur Culture Indicated? U Opiates 300ng/mL cut (Negative) Ur Oxycodone Screen (Negative) Urine Methadone Screen (Negative) Ur Barbiturates Screen (Negative) U Tricyclic Antidepress (Negative) Ur Phencyclidine Scrn (Negative) Ur Amphetamines Screen (Negative) U Methamphetamines Scrn (Negative) Ur MDMA Scrn (Ecstasy) (Negative) U Benzodiazepines Scrn (Negative) Urine Cocaine Screen (Negative) U Marijuana (THC) Screen (Negative) Point of care testing: Urine Dip Bedside Urine Glucose 500 mg/dl Bedside Urine Bilirubin - Negative Bedside Urine Ketone +++ 80 Urine Specific [place] 1.015 Bedside Urine Occult Blood +/- Bedside Urine pH 8.0 Bedside Urine Protein - Negative Bedside Urine Urobilinogen - Negative Bedside Urine Nitrite - Negative Bedside Urine Leukocytes - Negative Esterase Discharge Plan Departure Patient Disposition: Home Clinical Impression: Congenital malrotation of intestine Abdominal pain Qualifiers: Abdominal location: generalized Qualified Code(s): R10.84 - Generalized abdominal pain Discharge Date/Time: 08/24/19 17:58 Instructions: DI for Abdominal Pain-Adult Activity Restrictions/Additional Instructions: Thank you for trusting us with your care today. I am glad that you are feeling better. As discussed, your CT scan shows evidence of congenital midgut malrotation. Please follow-up with primary care provider in the next few days. I also suggest follow-up with [facility]. Your congenital malrotation increases your chances of small-bowel obstruction. If you have acute concerns please come back to the emergency department including severe abdominal pain with fever, inability keep down fluids etcetera Please go home and rest. Prescriptions: No Action ibuprofen 800 mg tablet 800 mg PO TID Qty: 90 RF: 0 fluoxetine 20 mg capsule 20 mg PO DAILY Qty: 90 RF: 1 cyclobenzaprine 10 mg tablet 10 mg PO DAILY PRN (Reason: muscle spasm) Qty: 30 RF: 2 oxycodone-acetaminophen 10-325 mg tablet 1 tab PO Q6H PRN (Reason: pain) Qty: 30 RF: 0 Referrals: [facility] [Provider Group] Lakesha Joseph DO [Primary Care Provider] -
[2019-08-24 13:55] LABS: Bacteria Urine None Seen; WBC Urine None Seen (0-5/HPF)
[2019-08-24 14:18] LABS: Culture Indicated Urine Cult Not Indicated; RBC Urine 0-1/HPF (0-5/HPF); Ur Creatinine Normal (Normal); Ur Specific Gravity Normal (Normal); Urine Cocaine Negative (Negative); Urine Tetrahydrocannabinol Positive (Negative); Urine pH Normal (Normal)
[2019-08-24 14:19] LABS: UR Morphine/Opiate cutoff 300 Negative (Negative); Urine Amphetamines Negative (Negative); Urine Barbiturates Negative (Negative); Urine Benzodiazepines Negative (Negative); Urine MDMA Negative (Negative); Urine Methadone Negative (Negative); Urine Methamphetamines Negative (Negative); Urine Oxycodone Negative (Negative); Urine Phencyclidine Negative (Negative); Urine Tricyclic Antidepressant Negative (Negative)
[2019-08-24 14:42] LABS: Reflexed Lactate in 2 Hours Y
[2019-08-24 17:13] LABS: Creatine Kinase 95 U/L (55-170); Lactate 2HR (Lactic Acid Rflx) 0.7 mmol/L (0.7-2.1)
[2019-08-24 17:26] LABS: Troponin I < 0.012 ng/mL (0.01-0.034)
[2019-08-26 19:43] LABS: COVID19 Sendout Not Detected (Not Detected)
== END 2019-08-24 17:58 | disposition home or self-care (01) ==
PROVIDERS: Emergency Provider Nurse Practitioner Family; PCP Family Medicine
DX: Q43.3 Congenital malformations of intestinal fixation (principal); R10.84 Generalized abdominal pain; R11.2 Nausea with vomiting, unspecified; R19.7 Diarrhea, unspecified
CPT/HCPCS: 36415; 74177; 80053; 80305; 81003; 81015; 82150; 82550; 82553; 83605; 83690; 84484; 85025; 85610; 85730; 87635; 93005; 96361; 96374; 96375; 96376; 99285; J1170; J2060; J2405

== ENCOUNTER 2019-09-24 08:32 | Emergency (ER) | payer OTHER, MEDICAID, SELFPAY ==
[2019-09-24] VITALS (9 sets, daily range): BP systolic 135–184; BP diastolic 74–92; PULSE 68–86; RESP 12–24; TEMP 36.5; O2SAT 93–100; BMI 27.1
--- NOTE | 2019-09-24 09:12 | PC.NURSE ---
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
--- NOTE | 2019-09-24 09:32 | ED_ITS ---
HPI - Abdominal Pain General Chief Complaint: Abdominal Pain Stated Complaint: Nausea Time Seen by Provider: 09/24/19 09:01 Source: patient Mode of arrival: EMS Limitations: no limitations History of Present Illness HPI narrative: The patient presents this morning with severe abdominal cramping. Symptoms are occurring in waves. He is vomiting, he has slight hematemesis earlier today prior to arrival. He is also having diarrhea, no blood is noticed there. He has had no fever or chills with these symptoms. He describes a history of recurrent abdominal symptoms. He has multiple ER visits. He was seen here last month, CT revealed a congenital midgut malrotation. He also had nonspecific inflammatory changes and multiple loops of bowel. He improved and was discharged home, suggesting surgical follow-up. His PCM as consult with him to [facility]. He has yet to have an appointment. Apparently symptoms today a reasonable not only the last presentation, but multiple similar episodes. He has no history of PUD, GERD or hiatal hernia. He has no urinary complaints. He has a history of hernia repair, no history of bowel obstruction. Related Data Previous Rx's Medication Instructions Recorded fluoxetine 20 mg capsule 20 mg PO DAILY #90 cap 07/04/19 metoclopramide HCl [Reglan] 10 mg PO Q8H PRN #90 tab 09/24/19 Allergies Allergy/AdvReac Type Severity Reaction Status Date / Time amoxicillin [AMOXICILLIN] Allergy Severe HIVES A Verified 09/24/19 09:41 CHILD Review of Systems Review of Systems ROS Unobtainable: All systems reviewed & are unremarkable except as noted in HPI and below Constitutional Constitutional: Denies chills, Denies fever(s), Denies lethargy and Denies weakness Eyes Eyes: Denies change in vision, Denies eye discharge, Denies irritation and Denies loss of vision ENT Ears, Nose, Mouth, and Throat: Denies sore throat Cardiovascular Cardiovascular: Denies chest pain, Denies irregular heart rhythm, Denies lightheadedness, Denies palpitations and Denies dyspnea Respiratory Respiratory: Denies cough, Denies dyspnea and Denies wheezing Gastrointestinal Gastrointestinal: Reports as per HPI Genitourinary Genitourinary: Denies dysuria, Denies testicular pain and Denies urinary frequency Genitourinary: Denies urinary frequency and Denies dysuria Musculoskeletal Musculoskeletal: Denies back pain and Denies myalgias Integumentary/Breasts Skin/Breast: Denies pruritus, Denies erythema, Denies rash and Denies wounds Neurologic Neurologic: Denies confusion, Denies loss of vision and Denies weakness Psychiatric Psychiatric: Reports anxiety, Denies confusion and Denies depression Endocrine Endocrine: Denies palpitations Hematologic/Lymphatic Hematologic/Lymphatic: Denies easy bruising Allergic/Immunologic Allergic/Immunologic: Denies wheezing Patient History Medical History Anxiety (Acute) Atypical chest pain (Acute) Cervical disc herniation (Resolved Unknown) Hemorrhoids (Acute) Hx of pancreatitis (Resolved 2013) Insomnia (Acute) Neck pain (Chronic Unknown) Rectal bleeding (Acute) Shoulder pain (Resolved Unknown) Vision changes (Acute) Surgical History History of fusion of cervical spine (Resolved 2004) Hx of arthroscopy of shoulder (Resolved 07/2014) Hx of cervical discectomy (Resolved 03/2017) Social History marital status: household members: spouse and family occupational status: employed Smoking Status: Former smoker Tobacco: How many years used: 7 alcohol intake: never substance use type: marijuana (~1 gram per month ) Smoking Status: Former smoker alcohol intake frequency: 0-2 drinks per day Substance Use Type: marijuana Exam Initial Vital Signs Initial Vital Signs: Vital Signs Temperature 97.7 F 09/24/19 08:43 Pulse Rate 69 09/24/19 08:43 Respiratory Rate 20 09/24/19 08:43 Blood Pressure 158/74 H 09/24/19 08:43 Pulse Oximetry 100 09/24/19 08:43 Const General: cooperative, well developed, anxious and diaphoretic HENMT Mouth: oral mucosae normal Throat: posterior oropharynx normal Eyes General: appearance normal, both eyes and all related structures Eyelids: eyelids normal Conjunctivae: conjunctivae normal Sclera: sclerae normal Pupils: PERRL EOM: EOM intact bilaterally Neck Neck: No lymphadenopathy and No JVD Chest Chest: normal inspection of the chest Resp Effort & Inspection: normal respiratory effort and able to speak in complete sentences Auscultation: clear to auscultation bilaterally, no rales, no rhonchi and no wheezes Cardio Rate: regular rate Rhythm: abnormal rhythm Heart Sounds: no click, no gallops, no murmurs and no rubs Pulses: normal peripheral pulses GI Other: Generalized moderate tenderness. No distension. Normal bowel sounds. No palpable masses. Back/Spine/Pelvis Back: No CVA tenderness Skin General: no rashes or lesions noted, No jaundice and No petechiae Neuro General: patient oriented x3, oriented and no focal motor deficits Extrem General: full ROM, no pedal edema and no calf tenderness Psych Appearance: well kempt Mental Status: mental status grossly normal Affect: normal affect Attitude: cooperative Thought Content: normal Course Course Course Narrative: The patient proved after medications given IV. He obtained little relief for nausea with Zofran, the combination of Benadryl and Reglan helped significantly. He was given Dilaudid for pain. This was followed by Toradol IV. He is drinking fluids without nausea vomiting prior to discharge. I discussed the case with surgery, Dr. Ramos. Dr. Ramos offered to see the patient in follow-up, the patient is choosing to await a call back from [facility] regarding his intestine malrotation.. Orders Ordered: ED Orders 09/24/19 08:40 EKG-12 Lead Stat 09/24/19 09:28 Complete Blood Count AUTO DIFF Stat Comprehensive Metabolic Panel Stat Lipase Stat Partial Thromboplastin Time Stat Prothrombin Time INR Stat 09/24/19 10:00 CT abdomen pelvis w con Stat 09/24/19 11:33 Urinalysis and Microscopic Stat Urine Drug Screen, Rapid Stat Discontinued Medications Diphenhydramine HCl (Benadryl) 25 mg IV NOW ONE Stop: 09/24/19 10:11 Last Admin: 09/24/19 10:24 Dose: 25 mg Documented by: DAYANA Sodium Chloride (Normal Saline 0.9%) 1,000 mls @ 1,000 mls/hr IV BOLUS ONE Stop: 09/24/19 12:50 Last Infusion: 09/24/19 12:57 Dose: 0 mls/hr Documented by: Admin: 09/24/19 12:01 Dose: 1,000 mls/hr Documented by: KATE Ketorolac Tromethamine (Toradol) 30 mg IV NOW ONE Stop: 09/24/19 11:52 Last Admin: 09/24/19 12:01 Dose: 30 mg Documented by: KATE Metoclopramide HCl (Reglan) 10 mg IV NOW ONE Stop: 09/24/19 10:11 Last Admin: 09/24/19 10:24 Dose: 10 mg Documented by: DAYANA Pantoprazole Sodium (Protonix) 40 mg IV NOW ONE Stop: 09/24/19 09:32 Last Admin: 09/24/19 09:40 Dose: 40 mg Documented by: DAYANA Vital Signs Vital signs: Vital Signs - 8 hr 09/24/19 08:43 09/24/19 09:29 09/24/19 09:30 Temperature 97.7 F Pulse Rate 69 80 70 Respiratory Rate 20 24 18 Blood Pressure 158/74 H 155/75 H 184/87 H Pulse Oximetry 100 100 98 09/24/19 09:35 09/24/19 10:30 09/24/19 10:32 Temperature Pulse Rate 76 79 84 Respiratory Rate 12 Blood Pressure 170/92 H 150/76 H 150/76 H Pulse Oximetry 100 99 93 09/24/19 11:00 09/24/19 11:34 09/24/19 13:13 Temperature Pulse Rate 79 68 86 Respiratory Rate 19 12 Blood Pressure 142/78 H 142/83 H 135/79 Pulse Oximetry 97 99 100 MDM - Abdominal Pain Lab Data Result diagrams: 09/24/19 09:28 09/24/19 09:28 Labs: Lab Results 09/24/19 09/24/19 09/24/19 Range/Units 09:28 09:28 09:28 WBC 10.2 (4.5-11.0) X10^3/uL RBC 4.88 (4.5-5.9) X10^6/uL Hgb 14.5 (13.5-17.5) g/dL Hct 43.2 (41-53) % MCV 88.6 (80-100) fL MCH 29.8 (26-34) PG MCHC 33.6 (30-36) % RDW 13.8 (11.6-14.8) % Plt Count 246 (150-400) X10^3/uL Neut % (Auto) 89.2 H (50-75) % Lymph % (Auto) 7.6 L (25-40) % [place] % (Auto) 2.7 L (3-14) % Eos % (Auto) 0.2 L (2-4) % Baso % (Auto) 0.3 (0-2) % Neut # (Auto) 9100 H (1770-0640) /uL Lymph # (Auto) 800 L (2435-3223) /uL [place] # (Auto) 300 (0-900) /uL Eos # (Auto) 0 (0-450) /uL Baso # (Auto) 0 (0-100) /uL PT 11.7 (10.1-12.7) SECONDS INR 1.0 (0.9-1.3) APTT 31 (26.4-36.2) SECONDS Sodium 140 (137-145) mmol/L Potassium 4.1 (3.4-5.1) mmol/L Chloride 107 (98-107) mmol/L Carbon Dioxide 19 L (22-32) mmol/L BUN 23 H (9-20) mg/dL Creatinine 1.21 (0.66-1.25) mg/dL Estimated GFR > 60.0 (>60) mL/min BUN/Creatinine Ratio 19.0 (6-22) Glucose 259 H (70-100) mg/dL Calcium 10.6 H (8.4-10.2) mg/dL Total Bilirubin 0.9 (0.2-1.3) mg/dL AST 28 (17-59) IU/L ALT 25 (<50) IU/L Alkaline Phosphatase 74 (38-126) U/L Total Protein 8.7 H (6.3-8.2) g/dL Albumin 5.2 H (3.5-5.0) g/dL Globulin 3.5 (1.7-4.1) g/dL Albumin/Globulin Ratio 1.5 (1.0-2.8) Lipase 310 H (23-300) U/L Urine Color Urine Appearance Urine pH (4.5-8.0) Ur Specific [place] (1.000-1.035) Urine Protein (Negative) Urine Glucose (UA) (Negative) g/dL Urine Ketones (NEGATIVE) Urine Occult Blood (Negative) Urine Nitrate (Negative) Urine Bilirubin (NEGATIVE) Urine Urobilinogen (0.2) E.U./dL Ur Leukocyte Esterase (NEGATIVE) Urine RBC (0-5/HPF) Urine WBC (0-5/HPF) Urine Bacteria (None) Ur Culture Indicated? Micro UA Comment U Opiates 300ng/mL cut (Negative) Ur Oxycodone Screen (Negative) Urine Methadone Screen (Negative) Ur Barbiturates Screen (Negative) U Tricyclic Antidepress (Negative) Ur Phencyclidine Scrn (Negative) Ur Amphetamines Screen (Negative) U Methamphetamines Scrn (Negative) Ur MDMA Scrn (Ecstasy) (Negative) U Benzodiazepines Scrn (Negative) Urine Cocaine Screen (Negative) U Marijuana (THC) Screen (Negative) 09/24/19 09/24/19 Range/Units 11:33 11:33 WBC (4.5-11.0) X10^3/uL RBC (4.5-5.9) X10^6/uL Hgb (13.5-17.5) g/dL Hct (41-53) % MCV (80-100) fL MCH (26-34) PG MCHC (30-36) % RDW (11.6-14.8) % Plt Count (150-400) X10^3/uL Neut % (Auto) (50-75) % Lymph % (Auto) (25-40) % [place] % (Auto) (3-14) % Eos % (Auto) (2-4) % Baso % (Auto) (0-2) % Neut # (Auto) (0497-2919) /uL Lymph # (Auto) (7450-8666) /uL [place] # (Auto) (0-900) /uL Eos # (Auto) (0-450) /uL Baso # (Auto) (0-100) /uL PT (10.1-12.7) SECONDS INR (0.9-1.3) APTT (26.4-36.2) SECONDS Sodium (137-145) mmol/L Potassium (3.4-5.1) mmol/L Chloride (98-107) mmol/L Carbon Dioxide (22-32) mmol/L BUN (9-20) mg/dL Creatinine (0.66-1.25) mg/dL Estimated GFR (>60) mL/min BUN/Creatinine Ratio (6-22) Glucose (70-100) mg/dL Calcium (8.4-10.2) mg/dL Total Bilirubin (0.2-1.3) mg/dL AST (17-59) IU/L ALT (<50) IU/L Alkaline Phosphatase (38-126) U/L Total Protein (6.3-8.2) g/dL Albumin (3.5-5.0) g/dL Globulin (1.7-4.1) g/dL Albumin/Globulin Ratio (1.0-2.8) Lipase (23-300) U/L Urine Color Yellow Urine Appearance Clear Urine pH 7.0 (4.5-8.0) Ur Specific [place] 1.010 (1.000-1.035) Urine Protein Negative (Negative) Urine Glucose (UA) 1+ H (Negative) g/dL Urine Ketones 3+ H (NEGATIVE) Urine Occult Blood Trace-lysed (Negative) Urine Nitrate Negative (Negative) Urine Bilirubin Negative (NEGATIVE) Urine Urobilinogen 0.2 (0.2) E.U./dL Ur Leukocyte Esterase Negative (NEGATIVE) Urine RBC None seen (0-5/HPF) Urine WBC None seen (0-5/HPF) Urine Bacteria None seen (None) Ur Culture Indicated? Cult not indicated Micro UA Comment Microscopic normal U Opiates 300ng/mL cut Negative (Negative) Ur Oxycodone Screen Negative (Negative) Urine Methadone Screen Negative (Negative) Ur Barbiturates Screen Negative (Negative) U Tricyclic Antidepress Negative (Negative) Ur Phencyclidine Scrn Negative (Negative) Ur Amphetamines Screen Negative (Negative) U Methamphetamines Scrn Negative (Negative) Ur MDMA Scrn (Ecstasy) Negative (Negative) U Benzodiazepines Scrn Negative (Negative) Urine Cocaine Screen Negative (Negative) U Marijuana (THC) Screen Positive H (Negative) Point of care testing: Urine Dip Bedside Urine Glucose 500 mg/dl Bedside Urine Bilirubin - Negative Bedside Urine Ketone +++ 80 Urine Specific [place] 1.010 Bedside Urine Occult Blood +/- Bedside Urine pH 7.0 Bedside Urine Protein +/- 15 Bedside Urine Urobilinogen - Negative Bedside Urine Nitrite - Negative Bedside Urine Leukocytes - Negative Esterase Imaging Data CT scan - abdomen/pelvis: Radiologist's Impression: Chan Talley 49 M [address] [address] [address] Scan Report Signed Patient: MayankChan GMR#: [id number] : 1970Acct:[id number] Age/Sex: 49 / MDate of Service: 09/24/19 Loc: ED Accession Number: [id number] Procedure: CT abdomen pelvis w con Ordering Provider: Elder Black MD PROCEDURE: CT ABDOMEN PELVIS W CON INDICATIONS: Severe abdominal pain. History of malrotation. TECHNIQUE: After the administration of intravenous contrast, 5 mm thick sections acquired from the diaphragm to the symphysis. 5 mm coronal and sagittal reformats were acquired. For radiation dose reduction, the following was used: automated exposure control, adjustment of mA and/or kV according to patient size. COMPARISON: Merged With [facility], CT, CT ABDOMEN PELVIS W CON, 08/24/2019, 13:25. FINDINGS: Image quality: Excellent. ABDOMEN: Lung bases: Lung bases are clear. Heart size is normal. Solid organs: Liver is normal in size and enhancement. Gallbladder is within normal limits. Biliary system is non dilated. Pancreas enhances normally. The pancreatic duct is prominent measuring 4-5 millimeters at the proximal body. Spleen is normal in size and enhancement. No adrenal nodules. Kidneys demonstrate normal size and enhancement, without hydronephrosis. Peritoneum and bowel: Bowel loops demonstrate normal wall caliber. Findings of congenital midgut malrotation again noted. Circumferential wall thickening involving proximal loops of small bowel noted compatible with nonspecific enteritis. Circumferential wall thickening involving the right colon compatible with nonspecific colitis. Few scattered colonic diverticuli noted without evidence of diverticulitis. No free fluid or air. The appendix is normal. Nodes and vessels: No retroperitoneal or mesenteric adenopathy by size criteria. Aorta and inferior vena cava are normal in size. Miscellaneous: No ventral hernias. PELVIS: Genitourinary: Bladder wall thickness is normal. Miscellaneous: No inguinal hernias or adenopathy. Bones: No suspicious bony lesions. No vertebral body compression fractures. IMPRESSION: 1. Congenital midgut malrotation now demonstrated. 2. Mild circumferential wall thickening involving proximal loops of small bowel compatible with nonspecific enteritis. 3. Circumferential wall thickening involving right colon compatible with nonspecific colitis. 4. Pancreatic duct prominence. Pancreatic duct measures 4-5 millimeters at the proximal pancreatic body. Recommend correlation with clinical and laboratory data. 5. Colonic diverticulosis without evidence of diverticulitis. 6. No free fluid or free air. Dictated by: Marianna Stinson MD, PhD on 09/24/2019 at 10:17 Approved by: Marianna Stinson MD, PhD on 09/24/2019 at 10:28 ECG Data Attestation: I personally reviewed and interpreted this ECG as follows: (Normal sinus rhythm, no ectopy. No acute ST T wave changes. No acute findings.) Discharge Plan Departure Patient Disposition: Home Clinical Impression: Congenital malrotation of intestine Discharge Date/Time: 09/24/19 13:15 Instructions: Nausea and Vomiting-Adult Activity Restrictions/Additional Instructions: Follow-up with the surgery team at [facility] as planned. Reglan every 8 hours as needed for nausea. The prescription has been sent directly to [facility]. I recommend a high-fiber diet, drink plenty of water. Return the ER as necessary. Prescriptions: New metoclopramide HCl [Reglan] 10 mg tablet 10 mg PO Q8H PRN (Reason: nausea and vomiting) Qty: 90 RF: 0 No Action fluoxetine 20 mg capsule 20 mg PO DAILY Qty: 90 RF: 1 Referrals: Fazal Prado DO [Primary Care Provider] -
[2019-09-24] MEDS: ONDANSETRON 4 MG/2 ML INJ (09:39)
[2019-09-24] MEDS: HYDROMORPHONE 1 MG INJ (09:39)
[2019-09-24] MEDS: PANTOPRAZOLE 40 MG VIAL IV (09:40)
[2019-09-24 09:42] LABS: Prothrombin Time 11.7 SECONDS (10.1-12.7)
[2019-09-24 09:45] LABS: PTT Partial Thromboplastin Tim 31 SECONDS (26.4-36.2)
[2019-09-24 09:46] LABS: Alanine Aminotransferase 25 IU/L (<50); Albumin 5.2 g/dL (3.5-5.0); Albumin Globulin Ratio 1.5 (1.0-2.8); Alkaline Phosphatase 74 U/L (38-126); Aspartate Aminotransferase 28 IU/L (17-59); Bilirubin Total 0.9 mg/dL (0.2-1.3); Blood Urea Nitrogen 23 mg/dL (9-20); Calcium 10.6 mg/dL (8.4-10.2); Carbon Dioxide 19 mmol/L (22-32); Chloride 107 mmol/L (98-107); Estimated Glomerular Filt Rate > 60.0 mL/min (>60); Globulin 3.5 g/dL (1.7-4.1); Glucose 259 mg/dL (70-100); HEMOLYSIS 22 (0-50); Lipase 310 U/L (23-300); Potassium 4.1 mmol/L (3.4-5.1); Sodium 140 mmol/L (137-145); Total Protein 8.7 g/dL (6.3-8.2)
--- NOTE | 2019-09-24 10:00 | DI.CT.S_ITS ---
PROCEDURE: CT ABDOMEN PELVIS W CON INDICATIONS: Severe abdominal pain. History of malrotation. TECHNIQUE: After the administration of intravenous contrast, 5 mm thick sections acquired from the diaphragm to the symphysis. 5 mm coronal and sagittal reformats were acquired. For radiation dose reduction, the following was used: automated exposure control, adjustment of mA and/or kV according to patient size. COMPARISON: , CT, CT ABDOMEN PELVIS W CON, 08/24/2019, 13:25. FINDINGS: Image quality: Excellent. ABDOMEN: Lung bases: Lung bases are clear. Heart size is normal. Solid organs: Liver is normal in size and enhancement. Gallbladder is within normal limits. Biliary system is non dilated. Pancreas enhances normally. The pancreatic duct is prominent measuring 4-5 millimeters at the proximal body. Spleen is normal in size and enhancement. No adrenal nodules. Kidneys demonstrate normal size and enhancement, without hydronephrosis. Peritoneum and bowel: Bowel loops demonstrate normal wall caliber. Findings of congenital midgut malrotation again noted. Circumferential wall thickening involving proximal loops of small bowel noted compatible with nonspecific enteritis. Circumferential wall thickening involving the right colon compatible with nonspecific colitis. Few scattered colonic diverticuli noted without evidence of diverticulitis. No free fluid or air. The appendix is normal. Nodes and vessels: No retroperitoneal or mesenteric adenopathy by size criteria. Aorta and inferior vena cava are normal in size. Miscellaneous: No ventral hernias. PELVIS: Genitourinary: Bladder wall thickness is normal. Miscellaneous: No inguinal hernias or adenopathy. Bones: No suspicious bony lesions. No vertebral body compression fractures. IMPRESSION: 1. Congenital midgut malrotation now demonstrated. 2. Mild circumferential wall thickening involving proximal loops of small bowel compatible with nonspecific enteritis. 3. Circumferential wall thickening involving right colon compatible with nonspecific colitis. 4. Pancreatic duct prominence. Pancreatic duct measures 4-5 millimeters at the proximal pancreatic body. Recommend correlation with clinical and laboratory data. 5. Colonic diverticulosis without evidence of diverticulitis. 6. No free fluid or free air. Dictated by: Marianna Stinson MD, PhD on 09/24/2019 at 10:17 Approved by: Marianna Stinson MD, PhD on 09/24/2019 at 10:28
[2019-09-24] MEDS: diphenhydrAMINE 50 MG/ML VIAL 25 MG IV (10:24)
[2019-09-24] MEDS: METOCLOPRAMIDE 10 MG/2 ML INJ IV (10:24)
[2019-09-24 11:45] LABS: Bacteria Urine None Seen; RBC Urine None Seen (0-5/HPF); WBC Urine None Seen (0-5/HPF)
[2019-09-24 11:46] LABS: Appearance Urine UA CLEAR; Bilirubin Urine UA NEGATIVE (NEGATIVE); Color Urine UA YELLOW; Glucose Urine UA 1+ g/dL (Negative); Ketones Urine UA 3+ (NEGATIVE); Leukocyte Esterase Urine UA NEGATIVE (NEGATIVE); Nitrite Urine UA NEGATIVE (Negative); Occult Blood Urine UA TRACE-LYSED (Negative); Protein Urine UA NEGATIVE (Negative); Urobilinogen Urine UA 0.2 E.U./dL (0.2)
[2019-09-24 11:49] LABS: Culture Indicated Urine Cult Not Indicated; Urine Comments Microscopic Normal
[2019-09-24 11:53] LABS: Ur Creatinine Normal (Normal); Ur Specific Gravity Normal (Normal); Urine pH Normal (Normal)
[2019-09-24 11:57] LABS: UR Morphine/Opiate cutoff 300 Negative (Negative); Urine Amphetamines Negative (Negative); Urine Cocaine Negative (Negative); Urine MDMA Negative (Negative); Urine Methamphetamines Negative (Negative); Urine Phencyclidine Negative (Negative); Urine Tetrahydrocannabinol Positive (Negative)
[2019-09-24 11:58] LABS: Urine Barbiturates Negative (Negative); Urine Benzodiazepines Negative (Negative); Urine Methadone Negative (Negative); Urine Oxycodone Negative (Negative); Urine Tricyclic Antidepressant Negative (Negative)
[2019-09-24] MEDS: SODIUM CHLORIDE 0.9% 1,000 ML 1000 ML IV (12:01)
[2019-09-24] MEDS: KETOROLAC 60 MG/2 ML VIAL 30 MG IV (12:01)
== END 2019-09-24 13:15 | disposition home or self-care (01) ==
PROVIDERS: Emergency Provider Emergency Medicine; PCP Family Medicine
DX: Q43.3 Congenital malformations of intestinal fixation (principal); R11.2 Nausea with vomiting, unspecified; R19.7 Diarrhea, unspecified; F41.9 Anxiety disorder, unspecified
CPT/HCPCS: 36415; 74177; 80053; 80305; 81001; 81003; 83690; 85025; 85610; 85730; 93005; C9113; J1170; J1200; J1885; J2405; J2765; Q9967

== ENCOUNTER 2019-09-24 19:05 | Inpatient (IN) | payer OTHER, MEDICAID, SELFPAY ==
[2019-09-24] VITALS (7 sets, daily range): BP systolic 147–189; BP diastolic 79–96; PULSE 87–107; RESP 18–22; TEMP 36.9–37.8; O2SAT 93–100; BMI 27.1; BMI 26.2
--- NOTE | 2019-09-24 19:12 | ED.ABDPAIN ---
HPI - Abdominal Pain General Chief Complaint: Abdominal Pain Stated Complaint: NAUSEA AND VOMITING COLD Time Seen by Provider: 09/24/19 19:10 History of Present Illness HPI narrative: 49-year-old gentleman with malrotation of the gut presents with recurrent pain. He has had episodes similar to this 3 to 4 times a year for the last 7 years. With his episode in August he presented early enough in the pain constellation that the actual malrotation was noted. It was again noted on CT scan this morning. With previous experiences once the pain has been controlled it usually does not bother him again for a number of months. He chose to leave this morning and was planning on following up at [facility], however once he got home had some water eggs and toast in within 15 minutes had dramatic recurrence of pain vomiting and diarrhea. There is no blood in either the emesis or the diarrhea. He presents again and at this point is absolutely interested in surgical intervention. Care is reviewed with Dr. Ramos this morning and again this afternoon. Last meal was 4:00 p.m. (with large volume emesis following). Related Data Previous Rx's Medication Instructions Recorded fluoxetine 20 mg capsule 20 mg PO DAILY #90 cap 07/04/19 metoclopramide HCl [Reglan] 10 mg PO Q8H PRN #90 tab 09/24/19 Allergies Allergy/AdvReac Type Severity Reaction Status Date / Time amoxicillin [AMOXICILLIN] Allergy Severe HIVES A Verified 09/24/19 19:40 CHILD Review of Systems Review of Systems Narrative: Remainder of review of systems including constitutional, ENT, cardiovascular, respiratory, GI, , musculoskeletal, skin, neurologic and psychiatric systems reviewed and are unremarkable except as noted in HPI. Patient History Medical History Anxiety (Acute) Atypical chest pain (Acute) Cervical disc herniation (Resolved Unknown) Hemorrhoids (Acute) Hx of pancreatitis (Resolved 2013) Insomnia (Acute) Neck pain (Chronic Unknown) Rectal bleeding (Acute) Shoulder pain (Resolved Unknown) Vision changes (Acute) Surgical History History of fusion of cervical spine (Resolved 2004) Hx of arthroscopy of shoulder (Resolved 07/2014) Hx of cervical discectomy (Resolved 03/2017) Family History Grandfather Cancer Social History marital status: household members: spouse and family occupational status: employed Smoking Status: Former smoker Tobacco: How many years used: 7 alcohol intake: never substance use type: marijuana (~1 gram per month ) Smoking Status: Former smoker alcohol intake frequency: 0-2 drinks per day Substance Use Type: marijuana Exam Narrative Exam Narrative: General: Significant distress with diaphoresis obvious abdominal pain and difficulty in relaying complete history due to pain Respiratory: Lungs are clear to auscultation, no wheezing no rales no rhonchi. Full and symmetrical air movement Cardiac: Regular rate and rhythm no murmurs no bruits Abdomen: Diffusely tender with guarding and absent bowel tones,, no flank pain Skin: Diaphoretic Neurologic: Grossly neurologically intact with no obvious asymmetries or abnormalities Extremities: No trauma, well perfused Initial Vital Signs Initial Vital Signs: Vital Signs Pulse Rate 87 09/24/19 19:29 Pulse Oximetry 100 09/24/19 19:29 Course Orders Ordered: Lactated Ringer's (Lactated Ringers) 1,000 mls @ 150 mls/hr IV CONT RAMYA Last Admin: 09/25/19 05:04 Dose: 150 mls/hr Documented by: Infusion: 09/25/19 05:04 Dose: 150 mls/hr Documented by: Admin: 09/24/19 22:31 Dose: 150 mls/hr Documented by: CANDE Ketorolac Tromethamine (Toradol) 30 mg IV Q6HR PRN PRN Reason: Pain, Moderate (4-6) Stop: 09/29/19 20:47 Last Admin: 09/25/19 02:28 Dose: 30 mg Documented by: INGRID Lorazepam (Ativan) 1 mg IV Q4HR PRN PRN Reason: Anxiety Last Admin: 09/24/19 23:40 Dose: 1 mg Documented by: INGRID Morphine Sulfate (Morphine) 4 mg IV Q4HR PRN PRN Reason: Pain, Severe (7-10) Last Admin: 09/25/19 05:15 Dose: 4 mg Documented by: INGRID Ondansetron HCl (Zofran) 4 mg IV Q4HR PRN PRN Reason: Nausea And Vomiting Last Admin: 09/25/19 02:28 Dose: 4 mg Documented by: INGRID Discontinued Medications Diphenhydramine HCl (Benadryl) 25 mg IV NOW ONE Stop: 09/24/19 19:11 Last Admin: 09/24/19 19:22 Dose: 25 mg Documented by: DANNY Enoxaparin Sodium (Lovenox) 40 mg SUBCUT NOW ONE Stop: 09/24/19 22:09 Last Admin: 09/24/19 23:40 Dose: 40 mg Documented by: INGRID Hydromorphone HCl (Dilaudid) 1 mg IV NOW ONE Stop: 09/24/19 19:11 Last Admin: 09/24/19 19:21 Dose: 1 mg Documented by: DANNY Hydromorphone HCl (Dilaudid) 1 mg IV Q15MIN PRN PRN Reason: pain Last Admin: 09/24/19 20:03 Dose: 1 mg Documented by: DANNY Sodium Chloride (Normal Saline 0.9%) 1,000 mls @ 1,000 mls/hr IV BOLUS ONE Stop: 09/24/19 20:09 Last Infusion: 09/24/19 20:24 Dose: 0 mls/hr Documented by: Admin: 09/24/19 19:22 Dose: 1,000 mls/hr Documented by: DANNY Lactated Ringer's (Lactated Ringers) 1,000 mls @ 150 mls/hr IV CONT RAMYA Last Admin: 09/24/19 23:27 Dose: Not Given Documented by: CANDE Metoclopramide HCl (Reglan) 10 mg IV NOW ONE Stop: 09/24/19 19:11 Last Admin: 09/24/19 19:21 Dose: 10 mg Documented by: DANNY Naloxone HCl (Narcan) 0.2 mg IV Q2MIN PRN PRN Reason: Opiate Reversal Ondansetron HCl (Zofran) 4 mg IV NOW ONE Stop: 09/24/19 19:11 Last Admin: 09/24/19 19:21 Dose: 4 mg Documented by: DANNY MDM - Abdominal Pain Lab Data Result diagrams: 09/25/19 05:50 09/24/19 21:22 Labs: Lab Results 09/24/19 Range/Units 20:05 COVID-19 PCR Negative (Negative) Imaging Data CT scan - abdomen/pelvis: Radiologist's Impression: IMPRESSION: 1. Congenital midgut malrotation now demonstrated. 2. Mild circumferential wall thickening involving proximal loops of small bowel compatible with nonspecific enteritis. 3. Circumferential wall thickening involving right colon compatible with nonspecific colitis. 4. Pancreatic duct prominence. Pancreatic duct measures 4-5 millimeters at the proximal pancreatic body. Recommend correlation with clinical and laboratory data. 5. Colonic diverticulosis without evidence of diverticulitis. 6. No free fluid or free air. Dictated by: Marianna Stinson MD, PhD on 09/24/2019 at 10:17 MDM Narrative Medical decision making narrative: Continue pain from malrotation of the gut with persistent vomiting diarrhea inability to eat or keep food down. Will go to the operating room with Dr. Ramos. Last meal was 4:00 p.m. most of it was vomited up. Rapid covered screen will be done. Labs were done this morning and aside from slightly elevated glucose and calcium was unremarkable, Dr. Ramos did not request any additional labs prior to anticipated surgery. Discharge Plan Departure Patient Disposition: Admitted as Observation Clinical Impression: Congenital malrotation of intestine Discharge Date/Time: 09/24/19 21:38 Admit Date/Time: 09/24/19 20:09 Admit Provider: Evan Ramos
[2019-09-24] MEDS: HYDROMORPHONE 1 MG INJ IV ×2 (19:21→20:03)
[2019-09-24] MEDS: ONDANSETRON 4 MG/2 ML INJ IV (19:21)
[2019-09-24] MEDS: METOCLOPRAMIDE 10 MG/2 ML INJ IV (19:21)
[2019-09-24] MEDS: diphenhydrAMINE 50 MG/ML VIAL 25 MG IV (19:22)
[2019-09-24] MEDS: SODIUM CHLORIDE 0.9% 1,000 ML 1000 ML IV (19:22)
--- NOTE | 2019-09-24 20:48 | PM.HP.1 ---
History of Present Illness History of Present Illness Date Patient Seen: 09/24/19 Time Patient Seen: 20:48 Chief complaint: NAUSEA AND VOMITING COLD Narrative: The patient is a gentleman who has been having intermittent abdominal pain for the last 7 years. He has been diagnosed with pancreatitis and colitis and other problems but was found actually to have a malrotation as well. Usually is symptoms begin with having to go the bathroom and straining and becoming diaphoretic and then because then developed things severe abdominal pain and nausea and vomiting that persists for prolonged period he had been having the symptoms on and off but infrequently over the last 7 years. However last few months he has been having more of the symptoms and the fact was in the ER in August and again this morning with abdominal pain and these symptoms. He also has had numerous watery bowel movements with this event. No blood. Last colonoscopy was normal 8 months ago. He has had no abdominal operation except for removal of a lipoma from his abdominal wall. The patient does not drink. He has not had hematemesis. When he was in the ER this morning his pain he said was about a 4 5 and got better any left. We went home and drank a large amount of fluids and try to eat and began vomiting again almost immediately. That is what caused him to return to the ER. Patient History Medical History Anxiety (Acute) Atypical chest pain (Acute) Cervical disc herniation (Resolved Unknown) Hemorrhoids (Acute) Hx of pancreatitis (Resolved 2013) Insomnia (Acute) Neck pain (Chronic Unknown) Rectal bleeding (Acute) Shoulder pain (Resolved Unknown) Vision changes (Acute) Surgical History History of fusion of cervical spine (Resolved 2004) Hx of arthroscopy of shoulder (Resolved 07/2014) Hx of cervical discectomy (Resolved 03/2017) Family & Social History Family History (Updated 09/24/19 @ 20:54 by Evan Ramos MD) Grandfather Cancer Social History: household members spouse,family Safety & Behavioral: Feels Safe in Current Yes Environment Been Physically Hurt or No Threatened By a Person Tobacco & Substance use: Tobacco type cigarettes Smoking Status Former smoker alcohol intake never alcohol intake frequency 0-2 drinks per day Substance Use Type marijuana Meds Home Medications and Allergies Home Medications Medication Instructions Recorded Confirmed Type fluoxetine 20 mg capsule 20 mg PO DAILY #90 cap 07/04/19 09/24/19 Rx metoclopramide HCl [Reglan] 10 mg PO Q8H PRN #90 tab 09/24/19 Rx Allergies Allergy/AdvReac Type Severity Reaction Status Date / Time amoxicillin [AMOXICILLIN] Allergy Severe HIVES A Verified 09/24/19 19:40 CHILD Review of Systems Review of Systems Narrative: Patient says that his vision has gotten a little worse and he probably needs glasses. No pain in his eyes or double vision. Denies any earache sore throats tooth aches trouble swallowing. No cough cold or asthma but he does get what sounds like anxiety attacks with shortness of breath can not CT enough air and chest discomfort. He takes medication for anxiety. Patient has no black or bloody bowel movements. No difficulty urinating. No blood in his urine or kidney stones. No seizures or blackouts. Isn't not have depression or bipolar disease. Has apparently had issues with narcotics in the past. Used to have a lot of neck pain but his surgery improve that. Just had some numbness with hyperventilation that went away when he stops hyperventilating. No unusual bruising or bleeding. No new skin lesions. Tattooed Exam Vital Signs (past 8 hours): - 09/24/19 19:29 09/24/19 19:30 09/24/19 20:00 Temperature 98.4 F Pulse Rate 87 87 88 Respiratory Rate 22 Blood Pressure 178/96 H 189/92 H Pulse Oximetry 100 100 97 Oxygen Delivery Method Room Air Narrative Exam Narrative: Patient in no apparent distress. Moaning occasionally. Tattoos distributed on his extremities and torso. Eyes are nonicteric. Pupils equal round reactive to light. Conjunctivae are pink. Ears without lesion. Nasal septum midline oral mucosa is dry. No open lesions. Missing 2 1st 2. There are no nodes in the neck or supraclavicular areas. Trachea is midline mobile. Thyroid is not enlarged. Lungs are clear to auscultation without rales or rhonchi. Equal percussion. Heart regular rate and rhythm without murmur gallop. No heave lift or thrill. A bit hyperdynamic however. Abdomen is flat soft. Small transverse scar in the right upper quadrant from removal of his lipoma. Well healed. There is no guarding. I can not really tell if he is tender as he is making moaning sounds when I am examining his abdomen and also when I am not. There is no obvious tenderness at this time on exam. His extremities adult normal hair pattern. 3+ pulses at radial artery. Dorsalis pedis 2+. I can not feel a left tibialis posterior but the right is 2+. No bony deformities of his extremities. The patient is alert and oriented. Seems a little anxious. Speech rate and content are appropriate. Objective Imaging CT scan - abdomen: My impression: CT from earlier visit reviewed. There may be some thickening of the right colon. There appears to be malrotation. No obstruction. No whirling of the mesentery appreciated. Labs Labs: Reviewed labs from earlier today. Patient elevated glucose of 259 and he is not known to be diabetic. He had a mild elevation of his lipase at 310 upper limit of normal is 300. Patient has a normal white blood cell count but a preponderance of segs at 89. His CO2 was low at 19. Assessment & Plan Assessment and plan (1) Congenital malrotation of intestine: Problem details: CT scan suggest colitis and his repeated episodes of diarrhea would be consistent with that. Something is not straightforward here. I plan to repeat labs, resuscitate him, bring his glucose under control if still elevated, check his stool for pathogens to make sure he does not actually have colitis like C difficile, and repeat labs regarding his pancreas. Pancreatitis could certainly present this way with an elevated glucose, abdominal pain, and nausea and vomiting with diarrhea. It would be odd but not impossible to suddenly developed the severe symptoms related to malrotation he has had all of his life. Status: Acute (2) Anxiety: Problem details: Will treat his anxiety with IV meds until he tolerates p.o. Status: Acute (3) Diarrhea: Problem details: Stool for GI panel Status: Acute
[2019-09-24 21:02] LABS: COVID19 -Nasal RAPID Negative (Negative)
[2019-09-24 21:39] LABS: Amylase 73 U/L (30-110); BUN Creatinine Ratio 17.6 (6-22); Blood Urea Nitrogen 16 mg/dL (9-20); Calcium 8.6 mg/dL (8.4-10.2); Carbon Dioxide 21 mmol/L (22-32); Chloride 109 mmol/L (98-107); Estimated Glomerular Filt Rate > 60.0 mL/min (>60); Glucose 131 mg/dL (70-100); HEMOLYSIS < 15 (0-50); Lipase 40 U/L (23-300); Potassium 3.2 mmol/L (3.4-5.1); Sodium 138 mmol/L (137-145)
[2019-09-24] MEDS: LACTATED RINGERS 1,000 ML 150 ML IV (22:31)
[2019-09-24] MEDS: ENOXAPARIN 40 MG/0.4 ML SYRINGE SUBCUT (23:40)
[2019-09-24] MEDS: LORazepam 2 MG/ML INJ 1 MG IV (23:40)
[2019-09-25] VITALS (24 sets, daily range): BP systolic 91–145; BP diastolic 57–89; PULSE 81–103; RESP 10–20; TEMP 36–38.1; O2SAT 86–98; BMI 26.2
--- NOTE | 2019-09-25 | PATH_ITS ---
[facility] Accession Number: [id number] . 01 Material submitted: . appendix - APPENDIX . 01 Clinical history: . NAUSEA AND VOMITING COLD . 02 Diagnosis: Appendix, Appendectomy: Appendix with soft fecaliths at gross examination and no significant histomorphologic abnormality.(entirely submitted) V 09/28/2019 1128 Local . 02 Electronically signed: . Talia Low MD, Pathologist NPI- [id number] . 01 Gross description: . Specimen A is received in formalin, labeled with patient identification and appendix. It consists of a vermiform appendix measuring 8.8 cm length and 0.5 cm in diameter. A scant amount of yellow-rushing and lobulated mesoappendiceal adipose tissue is present along the length. The proximal margin is patent and is inked blue. The serosa is pink-rushing and mildly dull. Sectioning reveals a lumen which is dilated up to 0.3 cm in diameter and filled with brown-rushing and soft fecaliths. The mucosa is yellow-rushing and grossly unremarkable. Pencil Inspector sections are submitted in two cassettes. . Summary of sections: A1 - proximal margin (shaved) and entry level sales representative cross-sections of appendix, five pieces. A2 - the entire bisected appendiceal tip, two pieces. ([id number]) . The remaining specimen is submitted in four additional cassettes: . Summary of sections: A3-A5 - five pieces each. A6 - two pieces. (TN:[id number]) /MRV 09/27/2019 1227 Local . 02 Pathologist provided ICD-10: Q43.3, F41.9, R19.7 . 02 CPT . 253904 Performed at: [address] [id number] MD Iker Biggs MD Phone: [phone] Performed at: 02 [facility] [address] [place] [address] [id number] MD Jenelle Rice MD Phone: [phone]
[2019-09-25] MEDS: ONDANSETRON 4 MG/2 ML INJ IV ×3 (02:28→09:16)
[2019-09-25] MEDS: KETOROLAC 30 MG/ML VIAL IV (02:28)
[2019-09-25] MEDS: LACTATED RINGERS 1,000 ML 150 ML IV ×3 (05:04→23:26)
[2019-09-25] MEDS: MORPHINE 4 MG/ML INJ IV (05:15)
--- NOTE | 2019-09-25 05:24 | PC.NURSE ---
0515 Checked Patient's blood glucose. Patient's blood glucose is 132. Reported to Александр Sanz RN
[2019-09-25 06:10] LABS: Add Manual Diff / Slide Review NO; Basophils Absolute Auto 0 /uL (0-100); Eosinophils Absolute Auto 0 /uL (0-450); Hematocrit 35.5 % (41-53); Lymphocytes Absolute Auto 200 /uL (1100-4500); Mean Corpuscular HGB Conc 33.8 % (30-36); Mean Corpuscular Hemoglobin 29.8 PG (26-34); Mean Corpuscular Volume 88.2 fL (80-100); Monocytes Absolute Auto 300 /uL (0-900); Monocytes Percent Auto 4.5 % (3-14); Neutrophils Absolute Auto 5800 /uL (1500-7000); Neutrophils Percent Auto 92.5 % (50-75); Platelet Count 166 X10^3/uL (150-400); Red Blood Cell Count 4.03 X10^6/uL (4.5-5.9); Red Cell Distribution Width 13.5 % (11.6-14.8); White Blood Cell Count 6.3 X10^3/uL (4.5-11.0)
[2019-09-25 06:19] LABS: Amylase 53 U/L (30-110); Lipase 39 U/L (23-300)
[2019-09-25 06:20] LABS: Alanine Aminotransferase 23 IU/L (<50); Albumin Globulin Ratio 1.4 (1.0-2.8); Alkaline Phosphatase 44 U/L (38-126); Aspartate Aminotransferase 22 IU/L (17-59); Bilirubin Total 0.8 mg/dL (0.2-1.3); Blood Urea Nitrogen 17 mg/dL (9-20); Calcium 8.7 mg/dL (8.4-10.2); Carbon Dioxide 23 mmol/L (22-32); Chloride 106 mmol/L (98-107); Estimated Glomerular Filt Rate > 60.0 mL/min (>60); Globulin 2.8 g/dL (1.7-4.1); Glucose 152 mg/dL (70-100); HEMOLYSIS < 15 (0-50); Potassium 3.6 mmol/L (3.4-5.1); Sodium 136 mmol/L (137-145); Total Protein 6.8 g/dL (6.3-8.2)
--- NOTE | 2019-09-25 07:30 | PC.NURSE ---
OR called surgery scheduled today at 1145. Advise pt and let him know. Called Gerardo pt's and gave her an update as well. She is appreciative and states she will be here around 0900.
--- NOTE | 2019-09-25 08:57 | PC.NURSE ---
Addendum entered by Jacqui Gutierrez R.N. 09/25/19 12:08: Patient down to surgery at 1115. Patient anxious and nervous about procedure. Assured him that things will work out and he will be coming back up to room 211. Addendum entered by Jacqui Gutierrez R.N. 09/25/19 09:45: Patient having dry heaves, requested some Zofran. He is resting with ice pack on his head now. Original Note: Patient will be going to surgery around 1145...He denies pain at this time and is not anxious. Cool cloth placed on patients forehead as he did feel a bit warm, helpful. Up adlib in room, he has had 2 bowel movements and latest temp 100.2, it was 99 prior. Bowel Tones are active in all quadrants and patient is going to try and nap now.
--- NOTE | 2019-09-25 10:09 | PM.PREOP ---
Pre-operative Note COVID-19 COVID-19 status: Negative Result date/Date tested (Pos, Neg/Pending): 09/24/19 Interval Note History & Physical reviewed/Exam performed by Physician: Yes Changes to H&P: Yes H&P completed within 30 days and has changed as indicated here:: Patient has had a low-grade temperature. His abdomen is soft and nontender. There is no guarding. I discussed the operation to relieve the symptoms of his malrotation. Risks of bleeding, infection, hernia, future bowel obstruction all discussed with him. He appears to understand wishes to proceed.
[2019-09-25 11:02] LABS: Adenovirus F 40/41 Not Detected (Not Detect); Astrovirus Not Detected (Not Detect); Campylobacter Not Detected (Not Detect); Clostridium difficile toxin AB Not Detected (Not Detect); Cryptosporidium Not Detected (Not Detect); Cyclospora cayetanensis Not Detected (Not Detect); Entamoeba histolytica Not Detected (Not Detect); Enteroaggregative E.coli Not Detected (Not Detect); Enteropathogenic E.coli Not Detected (Not Detect); Enterotoxigenic E.coli It/st Not Detected (Not Detect); Giardia lamblia Not Detected (Not Detect); Norovirus GI/GII Not Detected (Not Detect); Plesiomonsa shigelloides Not Detected (Not Detect); Rotavirus A Not Detected (Not Detect); Salmonella Not Detected (Not Detect); Sapovirus Not Detected (Not Detect); Shiga-like toxin-prod E.coli Not Detected (Not Detect); Shigella/Enteroinvasive E.coli Not Detected (Not Detect); Vibrio Not Detected (Not Detect); Vibrio cholerae Not Detected (Not Detect); Yersinia enterocolitica Not Detected (Not Detect)
--- NOTE | 2019-09-25 11:47 | SUR.OPER ---
Supine on padded OR bed, head on pillow, arms secured on padded arm boards at <90 degrees abduction, legs uncrossed, safety belt at thigh, tape over blanket over lower legs.
[2019-09-25] MEDS: LACTATED RINGERS 1,000 ML 42 ML IV ×2 (11:55→15:36)
[2019-09-25] MEDS: fentaNYL 100 MCG/2 ML INJ 50 MCG IV (11:56)
[2019-09-25] MEDS: MIDAZOLAM 2 MG/2 ML VIAL IV (11:59)
[2019-09-25] MEDS: metroNIDAZOLE 500 MG/100 ML PIGGYBACK 100 MG IV (11:59)
[2019-09-25] MEDS: CEFOTETAN 2 GM/50 ML PIGGYBACK IV (12:20)
[2019-09-25] MEDS: FENT 2MCG/ML BUPIV 0.125% EPI 200 MCG/100 ML PLAST..BAG 5 MCG EPIDURAL (13:00)
[2019-09-25] MEDS: ACETAMINOPHEN IV 1,000 MG/100 ML VIAL 400 MG IV (13:09)
[2019-09-25] MEDS: LACTATED RINGERS 1,000 ML 100 ML IV (13:18)
--- NOTE | 2019-09-25 13:50 | PM.AN.REGBLK ---
Regional Block Pre-procedure Procedure: Continuous Epidural for Post-operative Pain Management (attd: Rachel) PMH/ROS narrative: 49 y/o male with recurrent intestinal malrotation to OR for exploratory laparotomy. PSH/Anesthesia history narrative: h/o severe PONV. Anxiety on fluoxetine. No cardiopulm disease, no known vascular disease. h/o atypical CP, normal stress test 2018. No changes since. Exam narrative: WNWD, mildly anxious and uncomfortable. CTAB, RRR, no murmur noted. ASA Class: II (ASA 2E) Labs: Hct 35.5 % (41-53) L 09/25/19 05:50 Plt Count 166 X10^3/uL (150-400) 09/25/19 05:50 Medications: Current Medications Generic Name Dose Route Start Last Admin Trade Name Freq PRN Reason Stop Dose Admin Hydromorphone HCl 0 mg 09/25/19 13:44 Dilaudid IV Q5M PRN Pain, Severe (7-10) Hydromorphone HCl 0 mg 09/25/19 13:44 Dilaudid IV Q5M PRN Pain, Moderate (4-6) Hydromorphone HCl 0 mg 09/25/19 13:44 Dilaudid IV Q5MIN PRN Pain, Mild (1-3) Hydroxyzine HCl 25 mg 09/25/19 13:44 Vistaril IM NOW PRN Pain, Mild (1-3) Lactated Ringer's 1,000 mls @ 150 mls/hr 09/24/19 22:08 09/25/19 05:04 Lactated Ringers IV 150 mls/hr CONT RAMYA Administration Lactated Ringer's 1,000 mls @ 42 mls/hr 09/25/19 11:45 09/25/19 11:55 Lactated Ringers IV 42 mls/hr CONT RAMYA Administration FENT 2MCG/ML BUPIV 0.125% EPI 200 mcg in 100 mls @ 6 mls/hr 09/25/19 13:00 Fentanyl/Bupiv/Ns 2mcg/Ml - 0.125% EPIDURAL CONT RAMYA Ketorolac Tromethamine 30 mg 09/24/19 22:08 09/25/19 02:28 Toradol IV 09/29/19 20:47 30 mg Q6HR PRN Administration Pain, Moderate (4-6) Lorazepam 1 mg 09/24/19 22:23 09/24/19 23:40 Ativan IV 1 mg Q4HR PRN Administration Anxiety Morphine Sulfate 4 mg 09/24/19 22:08 09/25/19 05:15 Morphine IV 4 mg Q4HR PRN Administration Pain, Severe (7-10) Ondansetron HCl 4 mg 09/24/19 22:08 09/25/19 09:16 Zofran IV 4 mg Q4HR PRN Administration Nausea And Vomiting Allergies: Allergies Allergy/AdvReac Type Severity Reaction Status Date / Time amoxicillin [AMOXICILLIN] Allergy Severe HIVES A Verified 09/24/19 19:40 CHILD Procedure Insertion date: 09/25/19 Insertion time: 12:15 Prep/Local: betadine x3 Interspace: T8-9 Patient position: sitting Needle: 18 gauge [place] Loss of resistance with: saline CAT at (cm): 6 Catheter placed at SKIN (cm): 11 Catheter in SPACE (cm): 5 Insertion: No CSF, No Blood, No Paresthesia with insertion, No Paresthesia with injection and No Test dose reaction Initial Medications TEST DOSE time: 12:15 TEST DOSE: 1.5% lidocaine with epinephrine 1:200k (mL): 3 Infusion INFUSION: 0.125% bupivacaine and with fentanyl 2 mcg/mL Initial rate (mL/hr): 5 Post-procedure Anesthesia time START: 12:05 Anesthesia time END: 12:18 Post-procedure Anesthesia Assessment: Yes CV function: HR/BP stable, Yes Resp function: RR/sat/airway adequate, Yes Mental status appropriate and No Anesthesia complications
--- NOTE | 2019-09-25 15:30 | PT-IP ANOTE ---
Pt off floor this PM for surgery. Will follow up for PT morning of 09/25.
--- NOTE | 2019-09-25 15:45 | SUR.PHASEI ---
Assumed care of pt from Kimberly ARGUETA for her break.
--- NOTE | 2019-09-25 15:49 | P.OP_ITS ---
Operative Date/Time/Diagnoses Date of procedure: 09/25/19 Time of procedure: 15:49 Pre-op diagnosis: Partial bowel obstruction secondary to malrotation and adhesions. Acutely and chronically symptomatic Post-op diagnosis: same Procedure & Clinicians Procedure: Exploratory laparotomy, extensive adhesiolysis([place]'s procedure), incidental appendectomy(indicated because the nature of the malrotation and not incidental) Same procedure as scheduled: Yes Indications: Patient with acute abdominal pain nausea vomiting and a malrotation. This is of her current problem this being the worst episode he has had. Surgeon: Evan Ramos [employer] Rig Operator: Marko Corona Anesthesia Type: General Operative Notes Findings: Extensive retroperitoneal adhesions of the duodenum and small bowel causing a partial obstruction. Cecum unattached and in the right upper abdomen. Closure Type: primary Specimen(s): other (Appendix) Prosthetic devices, grafts, tissues, transplants, or devices: None Applied: catheter (Urinary catheter. Thoracic epidural catheter.) Estimated Blood Loss (mL): 100 Blood products transfused: none Procedure in detail: After a thoracic epidural was placed in the operating room, The patient was placed supine on the operating room table and underwent general endotracheal anesthesia. A Lozano catheter was placed. He was prepped and draped in the usual fashion. Vertical midline incision was made from his upper abdomen to his umbilicus. His carried down under direct vision in the peritoneal cavity. On exploration it was apparent that the patient had a floating cecum with long adhesions to the right abdominal wall and additional adhesions causing a an obstructive process to his small bowel. We released the bands going to the cecum and rotated the cecum medially. Identifying the ileocecal valve and the terminal small bowel we freed that up and then began to divide the [place]'s bands all along the small intestine. We basically did an extensive that he has a lysis of about 2 ft of small intestine. This included the duodenum which was in the retroperitoneum but not exactly in its normal location but for its blood supply of the pancreas. There was no ligament of [place]. The adhesiolysis was slow and tedious but we ultimately were able to free the entire small bowel from the pyloric channel to the cecum. We straightened out the twist and returned the small bowel to the abdomen. The appendix was a long thin structure. Because it will be in an aberrant location it is the recommendation of the surgical Society is that it be removed to prevent delayed diagnosis of acute appendicitis. We divided the mesoappendix, tied off the appendiceal artery, and tied the base of the appendix with 2 2-0 Vicryl ties. The appendix was divided and removed. The mucosa was cauterized with division. The cecum was placed in the left upper quadrant. The appendix was sent as specimen. We irrigated the peritoneal cavity. Controlled any ongoing oozing. Everything appeared to be dry at completion. The fascia was closed a running 1. PDS double-stranded suture and occasional interrupted [id number] 1. Vicryl sutures. The subcu was closed with interrupted 3 0 Vicryl. The skin was closed with cb. Dressing was applied and the patient was awakened and extubated and taken to recovery area in good condition. There were no apparent complications. Complications: none Post-operative Condition: stable Disposition: PACU Plan for aftercare: Will go to the ICU postop because of the epidural catheter but will not be an ICU patient but rather floor care.
--- NOTE | 2019-09-25 16:28 | SUR.PHASEI ---
Patient taken up to room 230. Patient left in stable condition with receiving RN at bedside.
--- NOTE | 2019-09-25 16:34 | CM.DANOTE ---
Discharge Planning/Care Management DCP: assessment: case received and discussed in Team Rounds. At that time little was known by the care team members in rounds re the plan for this pt. Pt is a 49 year old male who admittted to care of [facility] team: Dr. Ramos. Payer: [employer] /Medicaid PCP: Fazal Prado POC has now unfolded: pt was taken to surgery by Dr. Ramos for exploratory laparotomy with ELOY and incidental appendectomy. He has malrotation of intestines per documentions. Pt has just been brought up to room 230 this afternoon from PACU. DCP team to follow up tomorrow to continue the assessment process and to offer assist with any d/c needs that may arise. CM Discharge Assessment Start: 09/25/19 16:30 Freq: Status: Active Protocol: Document 09/25/19 16:33 ITV (Rec: 09/25/19 16:34 ITV [email or web address]) Discharge Planning Assessment Advance Directives? No History Provided By Medical Record Prior Living Arrangements House Household Members spouse,family Review Status In Process
--- NOTE | 2019-09-25 17:24 | PC.NURSE ---
1621 Pt arrived via bed from PACU, epidural connected and infusing per order. Pt notes equal sensation to bilateral lower extremities, sensation stops at umbilicus, equally numb bilaterally then pt has sensation at nipples bilaterally and BUE. Pt is A/Ox3, no complaints of pain, able to move BLE, danielle catheter in place and patent draining clear, luther colored urine. Oriented to room, call light within reach, no further needs at this time, will continue to monitor.
[2019-09-25] MEDS: GABAPENTIN 300 MG CAPSULE PO (20:35)
[2019-09-26] MEDS: FENT 2MCG/ML BUPIV 0.125% EPI 200 MCG/100 ML PLAST..BAG 5 MCG EPIDURAL ×2 (00:05→15:26)
[2019-09-26 04:45] VITALS: BP 141/69; PULSE 81; RESP 20; TEMP 37; O2SAT 99
[2019-09-26 05:05] LABS: Add Manual Diff / Slide Review NO; Basophils Absolute Auto 0 /uL (0-100); Basophils Percent Auto 0.1 % (0-2); Eosinophils Absolute Auto 0 /uL (0-450); Hematocrit 30.7 % (41-53); Hemoglobin 10.3 g/dL (13.5-17.5); Lymphocytes Absolute Auto 700 /uL (1100-4500); Lymphocytes Percent Auto 11.8 % (25-40); Mean Corpuscular HGB Conc 33.6 % (30-36); Mean Corpuscular Hemoglobin 29.8 PG (26-34); Mean Corpuscular Volume 88.9 fL (80-100); Monocytes Absolute Auto 400 /uL (0-900); Monocytes Percent Auto 7.4 % (3-14); Neutrophils Absolute Auto 4500 /uL (1500-7000); Neutrophils Percent Auto 80.7 % (50-75); Platelet Count 131 X10^3/uL (150-400); Red Blood Cell Count 3.46 X10^6/uL (4.5-5.9); Red Cell Distribution Width 13.9 % (11.6-14.8); White Blood Cell Count 5.6 X10^3/uL (4.5-11.0)
[2019-09-26 05:13] LABS: Alanine Aminotransferase 30 IU/L (<50); Albumin 3.1 g/dL (3.5-5.0); Albumin Globulin Ratio 1.2 (1.0-2.8); Alkaline Phosphatase 34 U/L (38-126); Aspartate Aminotransferase 35 IU/L (17-59); BUN Creatinine Ratio 16.2 (6-22); Bilirubin Total 0.3 mg/dL (0.2-1.3); Blood Urea Nitrogen 16 mg/dL (9-20); Calcium 8.5 mg/dL (8.4-10.2); Carbon Dioxide 26 mmol/L (22-32); Chloride 102 mmol/L (98-107); Estimated Glomerular Filt Rate > 60.0 mL/min (>60); Globulin 2.5 g/dL (1.7-4.1); Glucose 99 mg/dL (70-100); HEMOLYSIS < 15 (0-50); Magnesium 1.6 mg/dL (1.6-2.3); Sodium 133 mmol/L (137-145); Total Protein 5.6 g/dL (6.3-8.2)
[2019-09-26] MEDS: OXYCODONE/ACETAMINOPHEN 5/325 TABLET 1 TAB PO ×2 (06:14→12:37)
[2019-09-26] MEDS: LORazepam 2 MG/ML INJ 1 MG IV (06:15)
[2019-09-26] MEDS: LACTATED RINGERS 1,000 ML 150 ML IV (06:15)
--- NOTE | 2019-09-26 06:25 | PC.NURSE ---
0625-patient had uneventful night. This morning patient reports abd pain/discomfort 4/10 with repositioning, PRN 5mg Percocet administered for 4/10 pain. 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 Otherwise VSS, afebrile, abddominal dressing CDI, Epidural infusing and CMS intact. Patient denies nausea, reports some burping BTs present all four quadrants, does not report flatus as of this note. Report to Erica ARGUETA.
[2019-09-26 08:00] VITALS: BP 130/66; PULSE 87; RESP 19; TEMP 36.9; O2SAT 97
--- NOTE | 2019-09-26 11:28 | PT-IP ANOTE ---
Checked on pt for PT evaluation. RN states pt has had difficulty sleeping the past few days but is currently sleeping and has requested to be able to sleep until lunch. Will follow up early PM.
[2019-09-26] MEDS: GABAPENTIN 300 MG CAPSULE PO ×2 (12:37→22:22)
[2019-09-26 12:40] VITALS: BP 170/91; PULSE 74; RESP 18; TEMP 36.9; O2SAT 97
[2019-09-26] MEDS: FLUoxetine 20 MG CAPSULE PO (13:16)
[2019-09-26] MEDS: DEXTROSE 5%-LACTATED RINGERS 1,000 ML 100 ML IV ×2 (13:16→22:55)
--- NOTE | 2019-09-26 13:36 | PC.NURSE ---
pt with stable vital signs and hypo active bt's x 4 quads, somewhat distended abdomen noted, denies flatus or stooling but did note few smears to pts under pad in bed- he sat on toilet for several minutes with no success- asking for stool softener (as he has required these in the past) explained to him that we may start that after his diet has advanced- also, restarted prozac per his home routine- he slept most of am ( stating he hasn't has much of any sleep x 48h) ambulated 2 laps around icu and returned to bed- epidural site wnl and continues at 5ml/h
[2019-09-26] MEDS: KETOROLAC 30 MG/ML VIAL IV (13:46)
--- NOTE | 2019-09-26 13:48 | PT.IIE ---
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) Diarrhea, unspecified (09/24/19) Surgery Performed Operation Date: 09/25/19 11:45 Actual Procedures p Exploratory Laparotomy CELIA Procedure with Extensive Adhesiolysis, Appendectomy - Evan Ramos MD Surgical History (Last Reviewed 09/25/19 @ 06:09 by Madelyn Haque MD) History of fusion of cervical spine (Resolved 2004) Hx of arthroscopy of shoulder (Resolved 07/2014) Hx of cervical discectomy (Resolved 03/2017) Medical History (Last Updated 09/26/19 @ 11:54 by Fazal Prado DO) Anxiety (Acute) Atypical chest pain (Acute) Bowel obstruction (Acute) Cervical disc herniation (Resolved Unknown) Hemorrhoids (Acute) Hx of pancreatitis (Resolved 2013) Insomnia (Acute) Neck pain (Chronic Unknown) Rectal bleeding (Acute) Shoulder pain (Resolved Unknown) Vision changes (Acute) Physical Therapy Inpatient Evaluation/Re-Eval M1 PT/OT-IP Prior Functional Status Start: 09/26/19 08:48 Freq: NEEDED Status: Active Protocol: Document 09/26/19 13:23 AW (Rec: 09/26/19 13:48 AW [email or web address]) Medical Review Prior Functional Status Medical History Reviewed Yes Communication Pt is an effective verbal communicator. Mobility and Gait IND Activities of Daily Living and IADL's IND including driving Social History Household Members spouse,family Living Arrangements House Number of Floors (Floors) Two Floors Number of Stairs To Enter/Railing? Two PRABHJOT at front door without railing but post is available for support. Living room and kitchen are downstairs. Bedrooms are upstairs. Pt climbs 7 stairs with R rail + a landing + 8 stairs with L rail to second floor. 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 He lives with his , Gerardo, and their children. 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 M2 PT-IP Current Condition Start: 09/26/19 08:48 Freq: NEEDED Status: Active Protocol: Document 09/26/19 13:23 AW (Rec: 09/26/19 13:48 AW [email or web address]) Physical Therapy Current Condition Current Condition Evaluation Date 09/26/19 Treatment Diagnosis bowel obstruction s/p exp lap and ELOY; difficulty in walking Onset Date 09/25/19 Precautions Abdominal Surgery Precautions Log Roll,Lifting Restrictions, Gait Belt above Incisional Area M3 PT-IP Subjective Start: 09/26/19 08:48 Freq: NEEDED Status: Active Protocol: Document 09/26/19 13:23 AW (Rec: 09/26/19 13:48 AW [email or web address]) Subjective Physical Therapy Visit Type Type Initial Evaluation Visit Start Time 12:52 Visit Stop Time 13:19 Total Visit Minutes 27 Number of BOX STORAGE WORKER Visits 0 Physical Therapy Visit Comments Patient Comments I'm so tired but it feels good to be up on my feet. Patient Goals To return home with family support Therapy Pain Assessment Pain When Pain Assessed During Mobility Pain Present Pain Present Pain Reported Location Abdomen Intensity 4 Scale Used Numeric (0 - 10) Pain Management Techniques Re-positioning,Timing of Activity with Medications M4 PT-IP Mobility and Gait Start: 09/26/19 08:48 Freq: NEEDED Status: Active Protocol: Document 09/26/19 13:23 AW (Rec: 09/26/19 13:48 AW [email or web address]) PT-Bed Mobility Assessment Rolling Type of Rolling Log Rolling,Roll to Right Level of Assist Standby Assistance Supine to Sit Supine to Sit Standby Assistance Scooting Scooting to Edge of Bed Standby Assistance PT-Transfer Assessment Sit to and From Stand Sit to and from Stand Standby Assistance Equipment Transfer Assistive Device Gait Belt Transfers Transfer Destination Chair,Toilet Transfer Technique pt ambulated without AD Comments Mobility Comments Pt was sitting up in bed upon PT arrival, trying to eat some of his lunch but reporting nausea. BP with HOB at 45 degrees was 161/87. Pt agreed to mobilize, completing log roll on flat bed to his right side and sidelying to sit transition SBA. He stood at the edge of the bed with and without IV pole for support. He ambulated around the foot of the bed and transferred to and from the chair without use of UE SBA. He ambulated in the halls 300 feet SBA - first 100 feet with IV pole support and last 200 feet without support. Pt responded well to verbal cues for scapular retraction to provide a gentle stretch across his abdomen. Pt requested to use the toilet upon return to the room. He transferred to the toilet using left-sided grab bar SBA. Pt agreed to use the call light when ready to get back to bed. RN was notified of pt' s position in the room. Gait Assessment Gait Gait Assistance Required: Standby Assistance Distance (Feet) 300 Assistive Devices Assistive Device Gait Belt Gait Deviations General Gait Pattern Antalgic,Decreased Stride Length,Decreased Feet Clearance,Flexed Trunk Factors Limiting Gait Function Factors Limiting Gait Function Decreased Activity Tolerance, Decreased Strength,Limited Range of Motion,Pain Comments Gait Comments See mobility comments for details. Stair Climbing Assessment Comments Stair Climbing Comments Not assessed. PT-Balance Assessment Sitting Balance and Reactions Static Sitting Balance Ability Normal Dynamic Sitting Balance Ability Good Standing Balance and Reactions Static Standing Balance Ability Good Dynamic Standing Balance Ability Good Device Used no AD M5 PT-IP Objective Assessments Start: 09/26/19 08:48 Freq: NEEDED Status: Active Protocol: Document 09/26/19 13:23 AW (Rec: 09/26/19 13:48 AW [email or web address]) Orientation Orientation/Cognition Level of Alertness Alert Orientation Name,Day of Week,Place, Situation Language Function Ability No Deficits Noted Safety Awareness Understands Safety Issues Memory Description No Deficits Noted Gross Range of Motion Lower Extremity ROM Assessment Within Functional Limits Strength Lower Extremity Strength Assessment Within Functional Limits Comments Strength Comments BLE grossly 5/5 except left hip flexion 4/5 secondary to pain Coordination Assessment Gross Coordination Gross Coordination WNL Sensation Assessment Sensation Gross Sensation WNL Muscle Tone Muscle Tone WNL Yes M6 PT-IP Treatment Start: 09/26/19 08:48 Freq: NEEDED Status: Active Protocol: Document 09/26/19 13:23 AW (Rec: 09/26/19 13:48 AW [email or web address]) Physical Therapy Treatment Education Education Provided Precautions,Safety Other Treatments Other Treatment Performed Provided edcuation on role of PT, plan of care, splinting for cough or strain, and diaphragmatic breathing to increase parasympathetic tone and to address anxiety. M7 PT-IP Assessment and Plan Start: 09/26/19 08:48 Freq: NEEDED Status: Active Protocol: Document 09/26/19 13:23 AW (Rec: 09/26/19 13:48 AW [email or web address]) PT Summary Assessment and Plan Potential Rehabilitation Potential Good Status of Condition at Evaluation Evolving Summary Impairments Pain,ROM,Strength,Balance,Bed Mobility,Transfers,Gait, Activity Tolerance Assessment Summary Chan is a 49 yo man seen for PT evaluation on POD1 following exploratory laparotomy with lysis of adhesions for bowel obstruction secondary to malrotation of intestines. Pt is independent in all regards at baseline. He lives with his and children. 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 On evaluation, pt presented with decreased activity tolerance and required SBA for all mobility. He demonstrates increased use of accessory muscles for breathing. He would benefit from at least one more acute PT session to promote safe mobility and diaphragmatic breathing. Pt will likely be safe to discharge home with family assist once medically cleared. PT will continue to assess. Goals Bed Mobility Goal Independent Transfer Goal Independent Gait Goal Independent Gait Distance 500 Other Goals - up/down 15 steps with unilateral rail SBA Days to Meet Goals 5 Frequency of Treatment Frequency Of Treatment Once a Day Treatment Plan Physical Therapy Treatment Plan Bed Mobility Training,Transfer Training,Gait Training, Therapeutic Exercise,Balance Retraining,Post Op Education, Discharge Planning,Hot or Cold Pack,Neuromuscular Re-ed Other Recommendations and Next Treatment progress gait; trial stairs if Focus able; diaphragmatic breathing Recommendations To Nursing Amount of Assist Needed Standby Assistance Discharge Recommendations PT Discharge Recommendations Home with Assistance Transportation Needs at Discharge Private Vehicle
--- NOTE | 2019-09-26 15:19 | P.PN_ITS ---
Subjective Subjective Interval history: POD#1 for ex-lap/Barrera's procedure, T8-9 epidural placed preop for POPM with good pain control. 1-2 doses of percocet given last 24h, ketorolac IV, gabapentin. Afebrile, tolerating PO clears, ambulating. Exam Vital Signs (past 8 hours): - 09/26/19 08:00 09/26/19 12:40 Temperature 98.5 F 98.5 F Pulse Rate 87 74 Respiratory Rate 19 18 Blood Pressure 130/66 170/91 H Pulse Oximetry 97 97 Oxygen Delivery Method Room Air Oxygen Flow Rate 0 Narrative Exam Narrative: Epidural site c/d/i, 11cm at skin, nontender, no erythema. Block T4-10 L and R, adequate coverage of incision. Objective Labs Result Diagrams: 09/26/19 04:30 09/26/19 04:30 Labs: Laboratory Results - last 24 hr 09/26/19 09/26/19 04:30 04:30 WBC 5.6 RBC 3.46 L Hgb 10.3 L Hct 30.7 L MCV 88.9 MCH 29.8 MCHC 33.6 RDW 13.9 Plt Count 131 L Neut % (Auto) 80.7 H Lymph % (Auto) 11.8 L [place] % (Auto) 7.4 Eos % (Auto) 0.0 L Baso % (Auto) 0.1 Neut # (Auto) 4500 Lymph # (Auto) 700 L [place] # (Auto) 400 Eos # (Auto) 0 Baso # (Auto) 0 Sodium 133 L Potassium 4.0 Chloride 102 Carbon Dioxide 26 BUN 16 Creatinine 0.99 Estimated GFR > 60.0 BUN/Creatinine Ratio 16.2 Glucose 99 Calcium 8.5 Magnesium 1.6 Total Bilirubin 0.3 AST 35 ALT 30 Alkaline Phosphatase 34 L Total Protein 5.6 L Albumin 3.1 L Globulin 2.5 Albumin/Globulin Ratio 1.2 Assessment & Plan Assessment & Plan narrative: TEP for popm with good pain control. Ok for enoxaparin 40mg SC QD if desired by surgery while epidural catheter in place. BID dosing is contraindicated. Plan to continue fent/bupiv infusion at current rate. Will reassess tomorrow and d/w general surgery discharge planning. Quality VTE Deep Vein Thrombosis/Pulmonary Embolism Present on Admission: No
--- NOTE | 2019-09-26 15:31 | CM.DPC ---
DCP Cont: Patient was seen by surgeon today. He will not be discharged today. P.T. did evaluate patient. He does have family support at home for when it's time for him to discharge. P: DCP to continue to follow and will be available for any needs. Aria Kidd RN/Production Mechanic [employer]
[2019-09-26 16:00] VITALS: BP 145/91; PULSE 60; RESP 16; TEMP 36.7; O2SAT 98
--- NOTE | 2019-09-26 17:32 | P.PN_ITS ---
Subjective Subjective Date Patient Seen: 09/26/19 Time Patient Seen: 17:25 Interval history: The patient is a gentleman who is postop day 1. From an extensive Barrera's procedure and indicated appendectomy. He is tolerating p.o. liquids but has been belching a little he feels like he has to move his bowels but has not yet been successful no passage of flatus. Pain is very well controlled with his epidural. He has been mobile today moving in the glover taking several laps. Lozano is still in because of his epidural catheter. Principal concern is that he can not sleep Exam Vital Signs (past 8 hours): - 09/26/19 12:40 09/26/19 16:00 Temperature 98.5 F 98.1 F Pulse Rate 74 60 Respiratory Rate 18 16 Blood Pressure 170/91 H 145/91 H Pulse Oximetry 97 98 Oxygen Delivery Method Room Air Oxygen Flow Rate 0 Narrative Exam Narrative: Cooperative in no apparent distress. His lungs are clear to auscultation. Abdomen is distended but soft. Not particularly tender. His dr randall is dry and intact. Lozano is in place. Objective Labs Result Diagrams: 09/26/19 04:30 09/26/19 04:30 Labs: Laboratory Results - last 24 hr 09/26/19 09/26/19 04:30 04:30 WBC 5.6 RBC 3.46 L Hgb 10.3 L Hct 30.7 L MCV 88.9 MCH 29.8 MCHC 33.6 RDW 13.9 Plt Count 131 L Neut % (Auto) 80.7 H Lymph % (Auto) 11.8 L [place] % (Auto) 7.4 Eos % (Auto) 0.0 L Baso % (Auto) 0.1 Neut # (Auto) 4500 Lymph # (Auto) 700 L [place] # (Auto) 400 Eos # (Auto) 0 Baso # (Auto) 0 Sodium 133 L Potassium 4.0 Chloride 102 Carbon Dioxide 26 BUN 16 Creatinine 0.99 Estimated GFR > 60.0 BUN/Creatinine Ratio 16.2 Glucose 99 Calcium 8.5 Magnesium 1.6 Total Bilirubin 0.3 AST 35 ALT 30 Alkaline Phosphatase 34 L Total Protein 5.6 L Albumin 3.1 L Globulin 2.5 Albumin/Globulin Ratio 1.2 Assessment & Plan Post-op Postoperative Procedures: Procedures Operation Date: 09/25/19 11:45 Actual Procedures Side Surgeon p Exploratory Laparotomy BARRERA Procedure with Extensive Adhesiolysis, Appendectomy Evan Ramos MD Postoperative day: 1 Postoperative status: doing well Postoperative plan narrative: Reduce IV fluid rate check labs in the morning encourage ambulation and deep breathing. Consider advancing diet once bowel function has returned. Continue epidural catheter. Quality VTE Deep Vein Thrombosis/Pulmonary Embolism Present on Admission: No
[2019-09-26 19:00] VITALS: BP 141/77; PULSE 60; RESP 16; TEMP 36.7; O2SAT 97
[2019-09-26] MEDS: OXYCODONE/ACETAMINOPHEN 5/325 TABLET 2 TAB PO (22:54)
[2019-09-27] VITALS (7 sets, daily range): BP systolic 141–169; BP diastolic 71–109; PULSE 52–89; RESP 16–18; TEMP 36.4–37.1; O2SAT 94–100
[2019-09-27 05:32] LABS: Add Manual Diff / Slide Review NO; Basophils Absolute Auto 0 /uL (0-100); Basophils Percent Auto 0.3 % (0-2); Eosinophils Absolute Auto 100 /uL (0-450); Eosinophils Percent Auto 1.5 % (2-4); Hematocrit 31.2 % (41-53); Hemoglobin 10.7 g/dL (13.5-17.5); Lymphocytes Absolute Auto 700 /uL (1100-4500); Lymphocytes Percent Auto 18.1 % (25-40); Mean Corpuscular HGB Conc 34.2 % (30-36); Mean Corpuscular Volume 87.7 fL (80-100); Monocytes Absolute Auto 200 /uL (0-900); Monocytes Percent Auto 6.2 % (3-14); Neutrophils Absolute Auto 2900 /uL (1500-7000); Neutrophils Percent Auto 73.9 % (50-75); Platelet Count 133 X10^3/uL (150-400); Red Blood Cell Count 3.56 X10^6/uL (4.5-5.9); Red Cell Distribution Width 13.6 % (11.6-14.8)
[2019-09-27 05:35] LABS: BUN Creatinine Ratio 9.7 (6-22); Blood Urea Nitrogen 9 mg/dL (9-20); Calcium 8.2 mg/dL (8.4-10.2); Carbon Dioxide 29 mmol/L (22-32); Chloride 104 mmol/L (98-107); Estimated Glomerular Filt Rate > 60.0 mL/min (>60); Glucose 100 mg/dL (70-100); HEMOLYSIS < 15 (0-50); Potassium 3.4 mmol/L (3.4-5.1); Sodium 136 mmol/L (137-145)
[2019-09-27] MEDS: OXYCODONE/ACETAMINOPHEN 5/325 TABLET 1 TAB PO ×2 (08:31→10:14)
[2019-09-27] MEDS: GABAPENTIN 300 MG CAPSULE PO ×2 (08:32→20:49)
[2019-09-27] MEDS: KETOROLAC 30 MG/ML VIAL IV (08:32)
[2019-09-27] MEDS: FLUoxetine 20 MG CAPSULE PO (08:32)
[2019-09-27] MEDS: ONDANSETRON 4 MG/2 ML INJ IV ×2 (08:32→14:33)
--- NOTE | 2019-09-27 09:33 | PT.IPTN ---
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) Diarrhea, unspecified (09/24/19) Surgery Performed Operation Date: 09/25/19 11:45 Actual Procedures p Exploratory Laparotomy CELIA Procedure with Extensive Adhesiolysis, Appendectomy - Evan Ramos MD Physical Therapy Treatment Note M2 PT-IP Current Condition Start: 09/26/19 08:48 Freq: NEEDED Status: Active Protocol: Document 09/26/19 13:23 AW (Rec: 09/26/19 13:48 AW [email or web address]) Physical Therapy Current Condition Current Condition Evaluation Date 09/26/19 Treatment Diagnosis bowel obstruction s/p exp lap and ELOY; difficulty in walking Onset Date 09/25/19 Precautions Abdominal Surgery Precautions Log Roll,Lifting Restrictions, Gait Belt above Incisional Area M3 PT-IP Subjective Start: 09/26/19 08:48 Freq: NEEDED Status: Active Protocol: Document 09/27/19 09:22 [facility] (Rec: 09/27/19 09:33 [facility] [id number]) Subjective Physical Therapy Visit Type Type Discharge Summary Visit Start Time 08:48 Visit Stop Time 09:06 Total Visit Minutes 18 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 Physical Therapy Visit Comments Patient Comments Pt reprots he just walked by himself in the hallway but willing to get up with PT because he wants to get home [facility] Therapy Pain Assessment Pain When Pain Assessed During Mobility Pain Present Pain Present Pain Reported M4 PT-IP Mobility and Gait Start: 09/26/19 08:48 Freq: NEEDED Status: Active Protocol: Document 09/27/19 09:22 [facility] (Rec: 09/27/19 09:33 [facility] [id number]) PT-Bed Mobility Assessment Rolling Type of Rolling Log Rolling,Roll to Right Level of Assist Independent Supine to Sit Supine to Sit Independent Sit to Supine Sit to Supine Independent Scooting Scooting to Edge of Bed Independent PT-Transfer Assessment Sit to and From Stand Sit to and from Stand Independent Gait Assessment Gait Gait Assistance Required: Standby Assistance Distance (Feet) 500 Assistive Devices Assistive Device Gait Belt Comments Gait Comments Pt did supine to sit and sit to stand indep. He amb first 300 ft to stairs SBA without any LOB or sign of imbalance w /holding IV pole. Pt went up/ down stairs reciporocally with 1 rails SBA. He showed no signs of imbalance. Amb 150ft toward room with IV pole then 150ft without without any LOB. Stair Climbing Assessment Evaluation Level of Assist On Stairs Standby Assistance Devices Stair Climbing Assistive Devices Right Railing Technique/Endurance Stair Climbing Direction Ascend and Descend Stair Climbing Technique Step Over Step Number of Steps Climbed 3 Stair Climbing Set # Repetitions (reps) 1 PT-Balance Assessment Sitting Balance and Reactions Static Sitting Balance Ability Normal Dynamic Sitting Balance Ability Normal Standing Balance and Reactions Static Standing Balance Ability Normal Dynamic Standing Balance Ability Normal Device Used no AD M5 PT-IP Objective Assessments Start: 09/26/19 08:48 Freq: NEEDED Status: Active Protocol: Document 09/26/19 13:23 AW (Rec: 09/26/19 13:48 AW [email or web address]) Orientation Orientation/Cognition Level of Alertness Alert Orientation Name,Day of Week,Place, Situation Language Function Ability No Deficits Noted Safety Awareness Understands Safety Issues Memory Description No Deficits Noted Gross Range of Motion Lower Extremity ROM Assessment Within Functional Limits Strength Lower Extremity Strength Assessment Within Functional Limits Comments Strength Comments BLE grossly 5/5 except left hip flexion 4/5 secondary to pain Coordination Assessment Gross Coordination Gross Coordination WNL Sensation Assessment Sensation Gross Sensation WNL Muscle Tone Muscle Tone WNL Yes M6 PT-IP Treatment Start: 09/26/19 08:48 Freq: NEEDED Status: Active Protocol: Document 09/27/19 09:22 [facility] (Rec: 09/27/19 09:33 [facility] [id number]) Physical Therapy Treatment Other Treatments Other Treatment Performed edu re: calling for assistance if feels dizzy or off when getting up. M7 PT-IP Assessment and Plan Start: 09/26/19 08:48 Freq: NEEDED Status: Active Protocol: Document 09/27/19 09:22 [facility] (Rec: 09/27/19 09:33 [facility] [id number]) PT Summary Assessment and Plan Summary Assessment Summary Pt has met all goals and is indep and safe with all mobility. He did not show any signs of imbalance during session today and showed good safety awareness. he has no concerns re: activities at home and shows good mobility. DC PT at this time and make independent with mobility. RN notified. Pt instructed to call for assistance if needed and call if feels lightheaded or dizzy at all during mobiltiy. Frequency of Treatment Frequency Of Treatment Discharge Recommendations To Nursing Amount of Assist Needed Independent Discharge Recommendations PT Discharge Recommendations Home with Assistance Transportation Needs at Discharge Private Vehicle
--- NOTE | 2019-09-27 09:50 | P.PN_ITS ---
Subjective Subjective Interval history: POD#2 Barrera's procedure with TEP for POPM. Pt received 2 doses of Percocet in last 24h, also receiving gabapentin bid and ketorolac prn q6h. Tolerating PO, ambulating, afebrile. Reports good pain control, but reports full sensation on R side of abdomen. Exam Vital Signs (past 8 hours): - 09/27/19 04:47 09/27/19 07:55 Temperature 98.4 F 97.5 F L Pulse Rate 66 72 Respiratory Rate 18 16 Blood Pressure 141/71 H 153/83 H Pulse Oximetry 97 98 Oxygen Delivery Method Room Air Oxygen Flow Rate 0 Narrative Exam Narrative: TEP intact, Tegaderm has rolled up and catheter is exposed, pres enting infection risk. Block decreased to L side only, full sensation to cold stimulus on R. Objective Labs Result Diagrams: 09/27/19 04:25 09/27/19 04:25 Labs: Laboratory Results - last 24 hr 09/27/19 09/27/19 04:25 04:25 WBC 4.0 L RBC 3.56 L Hgb 10.7 L Hct 31.2 L MCV 87.7 MCH 30.0 MCHC 34.2 RDW 13.6 Plt Count 133 L Neut % (Auto) 73.9 Lymph % (Auto) 18.1 L [place] % (Auto) 6.2 Eos % (Auto) 1.5 L Baso % (Auto) 0.3 Neut # (Auto) 2900 Lymph # (Auto) 700 L [place] # (Auto) 200 Eos # (Auto) 100 Baso # (Auto) 0 Sodium 136 L Potassium 3.4 Chloride 104 Carbon Dioxide 29 BUN 9 Creatinine 0.93 Estimated GFR > 60.0 BUN/Creatinine Ratio 9.7 Glucose 100 Calcium 8.2 L Assessment & Plan Assessment & Plan narrative: Good pain control POD2 ex-lap with partially functioning TEP. Pt has not pressed PCEA button, and has received little pain medication beyond epidural. Because of exposed catheter tubing at this point, will pull epidural now to minimize infection risk. If enoxaparin is to be given, wait 4 hours after pulling catheter. Quality VTE Deep Vein Thrombosis/Pulmonary Embolism Present on Admission: No
--- NOTE | 2019-09-27 13:07 | PC.NURSE ---
Addendum entered by Emily Suresh R.N. 09/27/19 14:41: advanced to full lliquid diet and general ordered for am - medicated with 2 percocet prior to walk in hallway to room 205- also medicated with iv zofran per pt request -open to air incision with cb and permission to shower this date Original Note: pt alert/oriented and cooperative- bt x 4 quads few episodes of loose/liquid stool , lungs are clear and percocet for pain- epidural removed per dr. ornelas bandaid in place- abd dressing cdi - danielle removed and had voided since then- ambulated frequently and hopeful for diet advancement, scd's on at night time
[2019-09-27] MEDS: ENOXAPARIN 40 MG/0.4 ML SYRINGE SUBCUT (14:11)
[2019-09-27] MEDS: OXYCODONE/ACETAMINOPHEN 5/325 TABLET 2 TAB PO ×3 (14:12→23:17)
--- NOTE | 2019-09-27 14:48 | P.PN_ITS ---
Subjective Subjective Date Patient Seen: 09/27/19 Time Patient Seen: 14:49 Interval history: Patient had a little bit of nausea this morning. He is otherwise doing very well. He has been up and ambulating. Drinking without difficulty. He does get a little early satiety. Began having loose bowel movements. Exam Vital Signs (past 8 hours): - 09/27/19 07:55 09/27/19 12:34 Temperature 97.5 F L 98.7 F Pulse Rate 72 89 Respiratory Rate 16 18 Blood Pressure 153/83 H 162/96 H Pulse Oximetry 98 98 Oxygen Delivery Method Room Air Oxygen Flow Rate 0 Narrative Exam Narrative: Cooperative in no apparent distress. His lungs are clear with excellent effort. Heart regular rate and rhythm without murmur gallop. Abdomen is little distended but less so than yesterday. Soft. Incision is intact. No cellulitis. Objective Labs Result Diagrams: 09/27/19 04:25 09/27/19 04:25 Labs: Laboratory Results - last 24 hr 09/27/19 09/27/19 04:25 04:25 WBC 4.0 L RBC 3.56 L Hgb 10.7 L Hct 31.2 L MCV 87.7 MCH 30.0 MCHC 34.2 RDW 13.6 Plt Count 133 L Neut % (Auto) 73.9 Lymph % (Auto) 18.1 L [place] % (Auto) 6.2 Eos % (Auto) 1.5 L Baso % (Auto) 0.3 Neut # (Auto) 2900 Lymph # (Auto) 700 L [place] # (Auto) 200 Eos # (Auto) 100 Baso # (Auto) 0 Sodium 136 L Potassium 3.4 Chloride 104 Carbon Dioxide 29 BUN 9 Creatinine 0.93 Estimated GFR > 60.0 BUN/Creatinine Ratio 9.7 Glucose 100 Calcium 8.2 L Assessment & Plan Post-op Assessment and plan (1) Congenital malrotation of intestine: Assessment and Plan narrative: Recovering well from his [place]'s procedure and indicated appendectomy. Bowel function is returning. Will advance his diet. (2) Diarrhea: Assessment and Plan narrative: Diarrhea existed preoperatively. Stool testing was negative for pathogens. Consider probiotics now that he is d efinitely tolerating p.o. (3) Anxiety: Assessment and Plan narrative: Continue p.o. Prozac. As needed Ativan will continue for now. Postoperative Procedures: Procedures Operation Date: 09/25/19 11:45 Actual Procedures Side Surgeon p Exploratory Laparotomy CELIA Procedure with Extensive Adhesiolysis, Appendectomy Evan Ramos MD Postoperative day: 2 Postoperative status: doing well Quality VTE Deep Vein Thrombosis/Pulmonary Embolism Present on Admission: No
[2019-09-27] MEDS: MULTIVIT,CALC,MINS/IRON/FOLIC 1 TABLET 1 TAB PO (16:53)
[2019-09-27] MEDS: LACTOBACILLUS ACIDOPHILUS TABLET 1 EACH PO (16:53)
[2019-09-28] MEDS: ONDANSETRON 4 MG/2 ML INJ IV (04:13)
[2019-09-28] MEDS: OXYCODONE/ACETAMINOPHEN 5/325 TABLET 2 TAB PO (04:14)
--- NOTE | 2019-09-28 04:17 | PC.NURSE ---
Addendum entered by Griselda Roberson R.N. 09/28/19 07:33: pt woke up around 0645 and c/o nausea and abd cramping. administered toradol. pt reports zofran doesn't work, but reglan does. notified Dr. Ramos, VTO reglan 10mg q6hr PRN. Addendum entered by Griselda Roberson R.N. 09/28/19 05:22: pt currently sleeping after zofran. safety checks. call light in reach. Original Note: Pt woke up from a nap and felt nauseous, abdominal pain /10. administered zofran and pain med. will continue to monitorl.
[2019-09-28 06:03] VITALS: BP 145/68; PULSE 58; RESP 16; TEMP 36.3; O2SAT 99
[2019-09-28] MEDS: KETOROLAC 30 MG/ML VIAL IV (07:05)
[2019-09-28] MEDS: LACTOBACILLUS ACIDOPHILUS TABLET 1 EACH PO ×2 (08:28→17:17)
[2019-09-28] MEDS: GABAPENTIN 300 MG CAPSULE PO ×2 (08:28→20:01)
[2019-09-28] MEDS: OXYCODONE/ACETAMINOPHEN 5/325 TABLET 1 TAB PO ×4 (08:29→23:38)
[2019-09-28] MEDS: ENOXAPARIN 40 MG/0.4 ML SYRINGE SUBCUT (09:00)
[2019-09-28 09:45] VITALS: BP 145/80; PULSE 60; RESP 16; TEMP 36.1; O2SAT 96
--- NOTE | 2019-09-28 10:49 | P.PN_ITS ---
Subjective Subjective Date Patient Seen: 09/28/19 Time Patient Seen: 10:49 Interval history: Patient is 4 days postop [place]'s procedure. His epidural was removed yesterday and is now complaining of excessive incisional pain. Patient is physically doing well but complaining of pain despite being on Neurontin oxycodone and Toradol. I offered to release the patient however he prefers to stay today. Exam Vital Signs (past 8 hours): - 09/28/19 06:03 09/28/19 09:45 Temperature 97.3 F L 97.0 F L Pulse Rate 58 L 60 Respiratory Rate 16 16 Blood Pressure 145/68 H 145/80 H Pulse Oximetry 99 96 Oxygen Delivery Method Room Air Oxygen Flow Rate 0 Narrative Exam Narrative: Patient is lying in bed complaining of incisional pain. Abdomen is fairly soft. Wound looks good. Active bowel sounds. Objective Labs Result Diagrams: 09/27/19 04:25 09/27/19 04:25 Assessment & Plan Assessment & Plan narrative: Patient is recovering from a [place]'s procedure with return of GI function. Is complaining of incisional pain despite adequate coverage. I offered to discharge the patient however he prefers to stay at this time. Physically he appears well. Quality VTE Deep Vein Thrombosis/Pulmonary Embolism Present on Admission: No
[2019-09-28] MEDS: MULTIVIT,CALC,MINS/IRON/FOLIC 1 TABLET 1 TAB PO (11:51)
--- NOTE | 2019-09-28 11:56 | PC.NURSE ---
Addendum entered by Vaughn Corrigan R.N. 09/28/19 14:43: Pt slept well throughout the shift. Pain med earlier of good effect. Spoke with and Pt about plan of care and staying till tomorrow after Pt spoke with Dr. Quezada. Pt up for lunch and out in [place] for walk. Original Note: Pt arouses to name, voices concern about the epidural having been taken out yesterday and Pt having pain today. Pt has taken pain meds appropriately through evenings and night shifts. Discussed pain management and dose Pt according to orders. Pt had some b'fast and returned to bed. Has been up as needed to urinate gait steady. Pt states he is sleeping better and does feel better than this morning.
--- NOTE | 2019-09-28 15:13 | CM.DPC ---
DCP: assessment: Case received, EMR reviewed. Pt is recovering for [place]'s procedure. Met with pt now and introduced self and role. Pt is found sitting upright on side of bed in dark room, looking very uncomfortable. He states he had been hopeful he could go home today but that the epidural was taken out yesterday and the pain has been severe since that time. He stated that Dr. Quezada had told him he would keep him until tomorrow and possibly through the weekend. Pt has been up mobilizing. PT did see him today and d/c'd PT services. Pt confirms he lives with his Gerardo and their children, ages 6, 13 and 14. Gerardo is an RN and just starting a job at [employer]. P: home when stable for same.
[2019-09-28 16:39] VITALS: BP 159/87; PULSE 64; RESP 19; TEMP 36.8; O2SAT 99
[2019-09-28] MEDS: BISACODYL 10 MG SUPP PR (19:40)
[2019-09-28] MEDS: FLUoxetine 20 MG CAPSULE PO (20:01)
[2019-09-28 20:40] VITALS: BP 141/86; PULSE 67; RESP 18; TEMP 36.8; O2SAT 100
[2019-09-28 23:49] VITALS: BP 164/98; PULSE 66; RESP 18; TEMP 36.7; O2SAT 100
[2019-09-29] MEDS: OXYCODONE/ACETAMINOPHEN 5/325 TABLET 1 TAB PO ×2 (02:56→05:57)
[2019-09-29 05:30] VITALS: BP 146/80; PULSE 65; RESP 18; TEMP 36.5; O2SAT 96
--- NOTE | 2019-09-29 05:58 | PC.NURSE ---
Pt doing well. Had 1 small loose BM around midnight. Wants another suppository later in the morning. Mostly reports abdominal pain 4/10 requesting 1 tab percocet. Pt states it seems to feel worse while laying down. Midline incision looks good, CDI
--- NOTE | 2019-09-29 07:36 | P.PN_ITS ---
Subjective Subjective Date Patient Seen: 09/29/19 Time Patient Seen: 07:36 Interval history: Patient is 5 days postop a [place]'s procedure. He feels much better this morning than he did yesterday. He did have a bowel movement last night is tolerating a normal diet with no nausea or vomiting. Patient states that he is ready for discharge home today. Exam Vital Signs (past 8 hours): - 09/28/19 23:49 09/29/19 05:30 Temperature 98.0 F 97.7 F Pulse Rate 66 65 Respiratory Rate 18 18 Blood Pressure 164/98 H 146/80 H Pulse Oximetry 100 96 Oxygen Delivery Method Room Air Oxygen Flow Rate 0 Narrative Exam Narrative: Patient is alert and oriented complaining of only minimal a bdominal incisional pain. Abdomen is soft incision looks very good with no erythema no signs of infection. Objective Labs Result Diagrams: 09/27/19 04:25 09/27/19 04:25 Assessment & Plan Assessment & Plan narrative: Patient is now ready for discharge with normal GI function. Incision is healing nicely. Patient has an appointment to be followed in the clinic this week for staple removal. I advised him to do no heavy lifting or straining for 6 weeks. He will enjoy his normal regular diet. Quality VTE Deep Vein Thrombosis/Pulmonary Embolism Present on Admission: No
[2019-09-29] MEDS: LACTOBACILLUS ACIDOPHILUS TABLET 1 EACH PO (08:21)
[2019-09-29] MEDS: MULTIVIT,CALC,MINS/IRON/FOLIC 1 TABLET 1 TAB PO (08:22)
[2019-09-29] MEDS: GABAPENTIN 300 MG CAPSULE PO (08:23)
[2019-09-29] MEDS: ENOXAPARIN 40 MG/0.4 ML SYRINGE SUBCUT (08:23)
[2019-09-29 09:00] VITALS: BP 157/92; PULSE 65; RESP 16; TEMP 36.8; O2SAT 98
[2019-09-29] MEDS: BISACODYL 10 MG SUPP PR (09:05)
--- NOTE | 2019-09-29 09:16 | PC.NURSE ---
Day shift: Pt left unit at approx 0915. Going home and his spouse is driving him. Paperwork signed and MD scripts sent electronic. All questions answered. Pt has all personal belongings.
== END 2019-09-29 09:18 | disposition home or self-care (01) | DRG 225 ==
LOC: ED 19:18 → AC 09-25 06:36 → ICU 09-26 12:50 → AC 09-27 14:25 → ICU 09-28 13:25 → AC 09-28 13:29 → ICU 09-28 15:06
PROVIDERS: Admitting Provider Specialist; Emergency Provider Emergency Medicine; PCP Family Medicine; Visit Provider Specialist
PROC: 0DNH0ZZ Release Cecum, Open Approach (ICD-10-PCS; CPT 49000; principal; 2019-09-25 11:45)
DX: K56.50 Intestinal adhesions [bands], unspecified as to partial versus complete obstruction (principal); Q43.3 Congenital malformations of intestinal fixation; D62 Acute posthemorrhagic anemia; R19.7 Diarrhea, unspecified; F41.9 Anxiety disorder, unspecified; G47.00 Insomnia, unspecified; Z87.891 Personal history of nicotine dependence; Z11.59 Encounter for screening for other viral diseases
CPT/HCPCS: 36415; 36592; 44055; 44955; 74177; 80048; 80053; 80305; 81001; 81003; 82150; 82962; 83690; 83735; 85025; 85610; 85730; 87507; 87635; 93005; 94762; 96361; 96374; 96375; 96376; 97116; 97161; 99222; 99284; C9113; J0131; J0330; J1100; J1170; J1200; J1650; J1885; J2060; J2250; J2270; J2405; J2704; J2765; J3010; J7121; Q9967

== ENCOUNTER → 2019-10-09 16:42 | Outpatient (CLI) | payer OTHER, MEDICAID, SELFPAY ==
[2019-10-03 12:32] VITALS: BMI 26.2
[2019-10-09 18:42] LABS: Add Manual Diff / Slide Review NO; Basophils Absolute Auto 0 /uL (0-100); Basophils Percent Auto 1.2 % (0-2); Eosinophils Absolute Auto 100 /uL (0-450); Eosinophils Percent Auto 1.7 % (2-4); Hematocrit 37.2 % (41-53); Hemoglobin 12.5 g/dL (13.5-17.5); Lymphocytes Absolute Auto 1200 /uL (1100-4500); Lymphocytes Percent Auto 31.9 % (25-40); Mean Corpuscular HGB Conc 33.6 % (30-36); Mean Corpuscular Hemoglobin 29.3 PG (26-34); Mean Corpuscular Volume 87.1 fL (80-100); Monocytes Absolute Auto 500 /uL (0-900); Neutrophils Absolute Auto 2100 /uL (1500-7000); Neutrophils Percent Auto 53.2 % (50-75); Platelet Count 361 X10^3/uL (150-400); Red Blood Cell Count 4.27 X10^6/uL (4.5-5.9); Red Cell Distribution Width 13.7 % (11.6-14.8); White Blood Cell Count 3.9 X10^3/uL (4.5-11.0)
[2019-10-09 19:48] LABS: Alanine Aminotransferase 41 IU/L (<50); Albumin 4.2 g/dL (3.5-5.0); Albumin Globulin Ratio 1.4 (1.0-2.8); Alkaline Phosphatase 51 U/L (38-126); Aspartate Aminotransferase 19 IU/L (17-59); BUN Creatinine Ratio 15.1 (6-22); Bilirubin Total 0.8 mg/dL (0.2-1.3); Blood Urea Nitrogen 16 mg/dL (9-20); Calcium 9.4 mg/dL (8.4-10.2); Carbon Dioxide 28 mmol/L (22-32); Chloride 102 mmol/L (98-107); Estimated Glomerular Filt Rate > 60.0 mL/min (>60); Globulin 2.9 g/dL (1.7-4.1); Glucose 101 mg/dL (70-100); HEMOLYSIS < 15 (0-50); Potassium 4.6 mmol/L (3.4-5.1); Sodium 137 mmol/L (137-145); Total Protein 7.1 g/dL (6.3-8.2)
== END ==
PROVIDERS: PCP Family Medicine; Referring Provider Specialist; Visit Provider Specialist
DX: R10.9 Unspecified abdominal pain (principal)
CPT/HCPCS: 36415; 80053; 85025

== ENCOUNTER → 2019-10-10 10:03 | Outpatient (CLI) | payer OTHER, MEDICAID, SELFPAY ==
[2019-10-03 12:32] VITALS: BMI 26.2
--- NOTE | 2019-10-10 | DI.RAD.S_ITS ---
PROCEDURE: FL UPPER GI SMALL BOWEL INDICATIONS: ABD PAIN, DIARRHEA COMPARISON: None. FINDINGS: KUB: Preprocedural facility supervisor film shows a normal bowel gas pattern. No suspicious abdominal calcifications. Visualized solid organ contours appear normal in size. No suspicious bony abnormalities. Esophagus: Single contrast views demonstrate a normal mucosal pattern, and there is normal peristalsis. No fixed strictures, extrinsic mass effects, or diverticula. No hiatal hernias or elicited gastroesophageal reflux. There is normal transit of a calibrated barium tablet through the esophagus. Stomach: The gastric lumen is normally distensible, and has normal rugal fold thickness. No motility was observed within the stomach. No mucosal masses or ulcers. The pylorus and duodenal bulb appear to have a normal morphology. There was no gastric peristaltic activity over the course of the study, and early in the examination fluid within the gastric lumen was mildly dilating, but slowly contrast did extend from the stomach into the duodenal lumen which appears normal in caliber. Small bowel: Duodenal folds were not well visualized. After oral contrast transit into the duodenal lumen there appeared to be normal transit time through the small intestine. Small bowel loops appear normal in caliber throughout. Jejunal and ileal folds are smooth and normal in thickness. No strictures, intraluminal masses, or extrinsic mass effects. The terminal ileum is identified and appears normal. IMPRESSION: Normal peristalsis within the esophagus. No reflux observed. Mild gastric distension by oral contrast and fluid that was within the stomach at the initiation of the examination. Slow transit of the oral contrast into the duodenum lumen and small bowel was observed with virtually no peristalsis identified. Thereafter, however, peristalsis within the small bowel appear normal with normal transit time through the small bowel into the colon. Findings discussed with the ordering healthcare provider. Dictated by: Aaron Perez M.D. on 10/10/2019 at 13:16 Approved by: Aaron Perez M.D. on 10/10/2019 at 13:21
[2019-10-10 13:45] LABS: Adenovirus F 40/41 Not Detected (Not Detect); Astrovirus Not Detected (Not Detect); Campylobacter Not Detected (Not Detect); Clostridium difficile toxin AB Not Detected (Not Detect); Cryptosporidium Not Detected (Not Detect); Cyclospora cayetanensis Not Detected (Not Detect); Entamoeba histolytica Not Detected (Not Detect); Enteroaggregative E.coli Not Detected (Not Detect); Enteropathogenic E.coli Not Detected (Not Detect); Enterotoxigenic E.coli It/st Not Detected (Not Detect); Giardia lamblia Not Detected (Not Detect); Norovirus GI/GII Not Detected (Not Detect); Plesiomonsa shigelloides Not Detected (Not Detect); Rotavirus A Not Detected (Not Detect); Salmonella Not Detected (Not Detect); Sapovirus Not Detected (Not Detect); Shiga-like toxin-prod E.coli Not Detected (Not Detect); Shigella/Enteroinvasive E.coli Not Detected (Not Detect); Vibrio Not Detected (Not Detect); Vibrio cholerae Not Detected (Not Detect); Yersinia enterocolitica Not Detected (Not Detect)
== END ==
PROVIDERS: PCP Family Medicine; Referring Provider Specialist; Visit Provider Specialist
DX: R19.7 Diarrhea, unspecified (principal); R10.9 Unspecified abdominal pain
CPT/HCPCS: 74240; 74248; 87507

== ENCOUNTER 2020-01-01 14:45 | Emergency (ER) | payer OTHER, MEDICAID, SELFPAY ==
[2019-10-18 13:54] VITALS: BMI 26.2
[2020-01-01] VITALS (22 sets, daily range): BP systolic 128–179; BP diastolic 68–101; PULSE 54–78; RESP 8–29; TEMP 36.4; O2SAT 95–100; BMI 24.4
--- NOTE | 2020-01-01 14:55 | ED.ABDPAIN ---
HPI - Abdominal Pain General Chief Complaint: Abdominal Pain Stated Complaint: Abdominal Pain Time Seen by Provider: 01/01/20 14:46 Source: patient Mode of arrival: Ambulatory Limitations: no limitations History of Present Illness HPI narrative: 49-year-old smoker with history of congenital malrotation and recent surgical intervention presents with a chief complaint of a sudden onset severe intense mid abdominal pain. He has had nausea and vomiting as well. He states this is his 3rd episode in the past few weeks and he thinks largely attributed to eating late in the night, we status the pattern that he can see. His pain is severe and worse with motion and improves with rest. Denies fever or chills. He denies runny nose, sore throat or cough. He denies any recent injury. His last bowel movement, which seemed to exacerbate his symptoms was earlier today. MD complaint: abdominal pain Onset (ago): hour(s) Pain Consistency: constant Location: diffuse Severity: severe Quality: cramping and stabbing Radiation: none Relieving factors: nothing Exacerbating factors: bowel movement Associated symptoms: nausea and vomiting Related Data Previous Rx's Medication Instructions Recorded metoclopramide HCl [Reglan] 10 mg PO Q8H PRN #90 tab 09/24/19 gabapentin 300 mg PO BID #20 cap 09/27/19 ibuprofen 600 mg PO Q6H PRN #20 tab 09/27/19 dicyclomine 10 mg capsule 10 mg PO TID PRN #14 cap 10/09/19 erythromycin ethylsuccinate 200 200 mg PO QAC #200 ml MDD 3 10/17/19 mg/5 mL oral powder for suspension lorazepam 1 mg tablet 1 mg PO TID PRN #30 tab 10/17/19 cyclobenzaprine 10 mg tablet 10 mg PO BEDTIME PRN #90 tab 12/18/19 omeprazole 20 mg capsule,delayed 20 mg PO DAILY #90 cap 12/18/19 release oxycodone-acetaminophen 5 mg-325 See Rx Instructions .ROUTE 12/18/19 mg tablet .COMPLEX PRN #20 tab fluoxetine 20 mg capsule 20 mg PO DAILY #90 cap 12/28/19 Allergies Allergy/AdvReac Type Severity Reaction Status Date / Time amoxicillin [AMOXICILLIN] Allergy Severe HIVES A Verified 10/18/19 14:13 CHILD Review of Systems Constitutional Constitutional: Denies chills, Denies fatigue, Denies fever(s), Denies frequent falls, Denies lethargy and Denies weakness Eyes Eyes: Denies change in vision, Denies eye discharge, Denies irritation and Denies loss of vision ENT Ears, Nose, Mouth, and Throat: Denies change in voice, Denies dizziness, Denies neck pain, Denies sore throat and Denies throat swelling Cardiovascular Cardiovascular: Denies chest pain, Denies irregular heart rhythm, Denies lightheadedness, Denies palpitations, Denies dyspnea, Denies dyspnea on exertion and Denies orthopnea Respiratory Respiratory: Denies cough, Denies dyspnea, Denies dyspnea on exertion and Denies wheezing Gastrointestinal Gastrointestinal: Reports abdominal pain, Denies change in bowel habits, Denies diarrhea, Reports nausea and Reports vomiting Musculoskeletal Musculoskeletal: Denies neck pain and Denies numbness Integumentary/Breasts Skin/Breast: Denies pruritus, Denies erythema, Denies rash and Denies wounds Neurologic Neurologic: Denies behavioral changes, Denies confusion, Denies dizziness, Denies frequent falls, Denies loss of vision, Denies numbness and Denies weakness Psychiatric Psychiatric: Denies anxiety, Denies behavioral changes, Denies confusion, Denies depression, Denies homicidal ideation and Denies suicidal ideation Endocrine Endocrine: Denies fatigue, Denies flushing and Denies palpitations Hematologic/Lymphatic Hematologic/Lymphatic: Denies easy bruising Allergic/Immunologic Allergic/Immunologic: Denies urticaria, Denies throat swelling and Denies wheezing Patient History Medical History Anxiety (Acute) Atypical chest pain (Acute) Bowel obstruction (Acute) Cervical disc herniation (Resolved Unknown) Hemorrhoids (Acute) Hx of pancreatitis (Resolved 2013) Insomnia (Acute) Neck pain (Chronic Unknown) Rectal bleeding (Acute) Shoulder pain (Resolved Unknown) Vision changes (Acute) Surgical History History of fusion of cervical spine (Resolved 2004) Hx of arthroscopy of shoulder (Resolved 07/2014) Hx of cervical discectomy (Resolved 03/2017) Family History Grandfather Cancer Social History marital status: household members: spouse and family occupational status: employed Smoking Status: Former smoker Tobacco: How many years used: 7 alcohol intake: never substance use type: marijuana Smoking Status: Former smoker alcohol intake frequency: 0-2 drinks per day Substance Use Type: marijuana Exam Narrative Exam Narrative: GENERAL: [49] year old patient appears stated age. Well-nourished, well-developed patient, in obvious significant pain, clutching an emesis bag and rubbing his central abdomen HEAD: Atraumatic. Normocephalic. EYES: Pupils equal round and reactive. Extraocular motions intact. No scleral icterus. No injection or drainage. ENT: Nose without bleeding, purulent drainage. Throat without erythema, tonsillar hypertrophy or exudate. Airway patent. NECK: Trachea midline. Non tender CARDIOVASCULAR: Regular rate and rhythm without murmurs, gallops, or rubs. RESPIRATORY: Clear to auscultation. Breath sounds equal bilaterally. No wheezes, rales, or rhonchi. GASTROINTESTINAL: Abdomen soft, significant periumbilical tenderness, nondistended. Bowel sounds noted in all 4 quadrants EXTREMITIES: No edema or joint tenderness. BACK: Nontender without deformity or crepitance. No flank tenderness. NEURO: AOx3. SKIN: No rash or erythema of visible areas Initial Vital Signs Initial Vital Signs: Vital Signs Pulse Rate 65 01/01/20 14:53 Respiratory Rate 29 H 01/01/20 14:53 Blood Pressure 179/98 H 01/01/20 14:53 Pulse Oximetry 100 01/01/20 14:53 Course Orders Ordered: ED Orders 01/01/20 14:57 Complete Blood Count AUTO DIFF Stat Comprehensive Metabolic Panel Stat Lactate (Lactic Acid) Stat 01/01/20 15:07 CT abdomen pelvis w con Stat 01/01/20 15:45 Urine Microscopic Stat 01/01/20 15:48 Blood Culture Stat Discontinued Medications Hydromorphone HCl (Dilaudid) 1 mg IV NOW ONE Stop: 01/01/20 14:53 Last Admin: 01/01/20 15:01 Dose: 1 mg Documented by: DAYANA Lactated Ringer's (Lactated Ringers) 1,000 mls @ 1,000 mls/hr IV BOLUS ONE Stop: 01/01/20 15:51 Last Infusion: 01/01/20 16:03 Dose: 0 mls/hr Documented by: Admin: 01/01/20 15:00 Dose: 1,000 mls/hr Documented by: DAYANA Levofloxacin (Levaquin) 500 mg in 100 mls @ 100 mls/hr IV NOW ONE Stop: 01/01/20 16:26 Last Infusion: 01/01/20 17:49 Dose: 0 mls/hr Documented by: Admin: 01/01/20 16:50 Dose: 100 mls/hr Documented by: DAYANA Metronidazole (Flagyl) 500 mg in 100 mls @ 100 mls/hr IV NOW ONE Stop: 01/01/20 16:26 Last Infusion: 01/01/20 16:51 Dose: 0 mls/hr Documented by: Admin: 01/01/20 15:43 Dose: 100 mls/hr Documented by: PARRIS Sodium Chloride (Normal Saline 0.9%) 1,000 mls @ 1,000 mls/hr IV BOLUS ONE Stop: 01/01/20 17:34 Last Infusion: 01/01/20 17:48 Dose: 0 mls/hr Documented by: Admin: 01/01/20 16:36 Dose: 1,000 mls/hr Documented by: PARRIS Metoclopramide HCl (Reglan) 10 mg IV NOW ONE Stop: 01/01/20 14:53 Last Admin: 01/01/20 15:01 Dose: 10 mg Documented by: DAYANA Reevaluation(s) Reevaluation #1: Patient had complete, and rapid improvement of symptoms after the above-stated therapies. He has been observed for a few hours upon completion of imaging. Vital Signs Vital signs: Vital Signs - 8 hr 01/01/20 14:53 01/01/20 14:55 01/01/20 15:00 Temperature 97.6 F Pulse Rate 65 78 74 Respiratory Rate 29 H 20 22 Blood Pressure 179/98 H 179/98 H 177/101 H Pulse Oximetry 100 100 01/01/20 15:15 01/01/20 15:36 01/01/20 15:37 Temperature Pulse Rate 59 L 71 69 Respiratory Rate 19 22 22 Blood Pressure 158/85 H Pulse Oximetry 95 01/01/20 15:45 01/01/20 16:00 01/01/20 16:03 Temperature Pulse Rate 63 58 L 66 Respiratory Rate 22 8 L 19 Blood Pressure 132/77 Pulse Oximetry 01/01/20 16:15 01/01/20 16:30 01/01/20 16:45 Temperature Pulse Rate 55 L 55 L 74 Respiratory Rate 15 17 13 Blood Pressure 140/74 Pulse Oximetry 100 01/01/20 17:00 01/01/20 17:15 01/01/20 17:30 Temperature Pulse Rate 54 L 56 L 63 Respiratory Rate 18 21 17 Blood Pressure 168/93 H 144/79 H Pulse Oximetry 100 100 98 01/01/20 17:45 01/01/20 18:00 01/01/20 18:15 Temperature Pulse Rate 62 77 61 Respiratory Rate 17 22 19 Blood Pressure 138/76 Pulse Oximetry 97 97 97 01/01/20 18:30 01/01/20 18:45 01/01/20 19:00 Temperature Pulse Rate 68 64 68 Respiratory Rate 18 16 20 Blood Pressure 136/68 128/70 Pulse Oximetry 96 96 96 01/01/20 19:15 Temperature Pulse Rate 62 Respiratory Rate 17 Blood Pressure Pulse Oximetry 96 MDM - Abdominal Pain Lab Data Result diagrams: 01/01/20 14:57 01/01/20 14:57 Labs: Lab Results 01/01/20 01/01/20 01/01/20 Range/Units 14:57 14:57 14:57 WBC 7.8 (4.5-11.0) X10^3/uL RBC 5.12 (4.5-5.9) X10^6/uL Hgb 15.4 (13.5-17.5) g/dL Hct 45.3 (41-53) % MCV 88.4 (80-100) fL MCH 30.0 (26-34) PG MCHC 34.0 (30-36) % RDW 14.0 (11.6-14.8) % Plt Count 276 (150-400) X10^3/uL Neut % (Auto) 78.8 H (50-75) % Lymph % (Auto) 12.8 L (25-40) % [place] % (Auto) 6.1 (3-14) % Eos % (Auto) 1.9 L (2-4) % Baso % (Auto) 0.4 (0-2) % Neut # (Auto) 6100 (6683-5845) /uL Lymph # (Auto) 1000 L (3516-7690) /uL [place] # (Auto) 500 (0-900) /uL Eos # (Auto) 100 (0-450) /uL Baso # (Auto) 0 (0-100) /uL Sodium 138 (137-145) mmol/L Potassium 3.6 (3.4-5.1) mmol/L Chloride 104 (98-107) mmol/L Carbon Dioxide 20 L (22-32) mmol/L BUN 12 (9-20) mg/dL Creatinine 0.88 (0.66-1.25) mg/dL Estimated GFR > 60.0 (>60) mL/min BUN/Creatinine Ratio 13.6 (6-22) Glucose 161 H (70-100) mg/dL Lactate 4.3 H* (0.7-2.1) mmol/L Calcium 9.8 (8.4-10.2) mg/dL Total Bilirubin 0.6 (0.2-1.3) mg/dL AST 19 (17-59) IU/L ALT 17 (<50) IU/L Alkaline Phosphatase 75 (38-126) U/L Total Protein 9.3 H (6.3-8.2) g/dL Albumin 5.1 H (3.5-5.0) g/dL Globulin 4.2 H (1.7-4.1) g/dL Albumin/Globulin Ratio 1.2 (1.0-2.8) Urine RBC (0-5/HPF) Urine WBC (0-5/HPF) Urine Bacteria (None) Ur Culture Indicated? 01/01/20 01/01/20 Range/Units 15:45 17:16 WBC (4.5-11.0) X10^3/uL RBC (4.5-5.9) X10^6/uL Hgb (13.5-17.5) g/dL Hct (41-53) % MCV (80-100) fL MCH (26-34) PG MCHC (30-36) % RDW (11.6-14.8) % Plt Count (150-400) X10^3/uL Neut % (Auto) (50-75) % Lymph % (Auto) (25-40) % [place] % (Auto) (3-14) % Eos % (Auto) (2-4) % Baso % (Auto) (0-2) % Neut # (Auto) (5939-6398) /uL Lymph # (Auto) (0518-8610) /uL [place] # (Auto) (0-900) /uL Eos # (Auto) (0-450) /uL Baso # (Auto) (0-100) /uL Sodium (137-145) mmol/L Potassium (3.4-5.1) mmol/L Chloride (98-107) mmol/L Carbon Dioxide (22-32) mmol/L BUN (9-20) mg/dL Creatinine (0.66-1.25) mg/dL Estimated GFR (>60) mL/min BUN/Creatinine Ratio (6-22) Glucose (70-100) mg/dL Lactate 3.7 H (0.7-2.1) mmol/L Calcium (8.4-10.2) mg/dL Total Bilirubin (0.2-1.3) mg/dL AST (17-59) IU/L ALT (<50) IU/L Alkaline Phosphatase (38-126) U/L Total Protein (6.3-8.2) g/dL Albumin (3.5-5.0) g/dL Globulin (1.7-4.1) g/dL Albumin/Globulin Ratio (1.0-2.8) Urine RBC 0-1/hpf (0-5/HPF) Urine WBC 1-5/hpf (0-5/HPF) Urine Bacteria None seen (None) Ur Culture Indicated? Cult not indicated Point of care testing: Urine Dip Bedside Urine Glucose Negative Bedside Urine Bilirubin - Negative Bedside Urine Ketone +++ 80 Urine Specific [place] 1.015 Bedside Urine Occult Blood +/- Bedside Urine pH 7.5 Bedside Urine Protein +/- 15 Bedside Urine Urobilinogen - Negative Bedside Urine Nitrite - Negative Bedside Urine Leukocytes - Negative Esterase MDM Narrative Medical decision making narrative: 41-year-old male with severe mid abdominal pain has a complete resolution of symptoms, very reassuring CT scan and largely normal labs with the exception of an elevated lactate. He was given a L of fluid and in the process of receiving his 2nd L of fluid his lab was rechecked and decreased small amount. Patient has no complaint at all at this point. He has as soft belly on exam, stable vitals, and has follow up tomorrow. He very much wishes to go home. We had a lengthy discussion about return precautions and risk factors. He verbalizes understanding and sugars me he will return for recurrence of symptoms. Discharge Plan Departure Patient Disposition: Home Clinical Impression: Abdominal pain, Elevated lactic acid level Discharge Date/Time: 01/01/20 19:30 Instructions: DI for Abdominal Pain-Adult Activity Restrictions/Additional Instructions: *You have been diagnosed with [episode of severe abdominal pain which has resolved. Very reassuring CT scan and physical exam. Your lactate was initially significantly elevated and after fluids has started dropping but is not yet at its normal level. It is hard to know what this means based on how well you look.] *What to do: *Take medications as directed *Follow up with your primary care provider in 2-3 days, call for an appointment. Let them know you were seen in the Emergency Department and that we ask that you be seen in follow up *Return to ER if you should have any new, worsening or concerning symptoms, such as [ increasing pain, fever >101F, vomiting, or shaking chills or other bothersome symptoms] Prescriptions: No Action omeprazole 20 mg capsule,delayed release(DR/EC) 20 mg PO DAILY Qty: 90 RF: 3 fluoxetine 20 mg capsule 20 mg PO DAILY Qty: 90 RF: 1 oxycodone-acetaminophen [Endocet] 5-325 mg tablet See Rx Instructions .ROUTE .COMPLEX PRN (Reason: painful procedure) Qty: 20 RF: 0 cyclobenzaprine 10 mg tablet 10 mg PO BEDTIME PRN (Reason: muscle spasm) Qty: 90 RF: 1 lorazepam 1 mg tablet 1 mg PO TID PRN (Reason: anxiety) Qty: 30 RF: 1 erythromycin ethylsuccinate 200 mg/5 mL suspension for reconstitution 200 mg PO QAC MDD 3 Qty: 200 RF: 1 dicyclomine 10 mg capsule 10 mg PO TID PRN (Reason: cramping) Qty: 14 RF: 0 metoclopramide HCl [Reglan] 10 mg tablet 10 mg PO Q8H PRN (Reason: nausea and vomiting) Qty: 90 RF: 0 gabapentin 300 mg capsule 300 mg PO BID Qty: 20 RF: 0 ibuprofen 600 mg tablet 600 mg PO Q6H PRN (Reason: pain) Qty: 20 RF: 1 Referrals: Fazal Prado, [Primary Care Provider] -
[2020-01-01] MEDS: LACTATED RINGERS 1,000 ML 1000 ML IV (15:00)
[2020-01-01] MEDS: METOCLOPRAMIDE 10 MG/2 ML INJ IV (15:01)
[2020-01-01] MEDS: HYDROMORPHONE 1 MG INJ IV (15:01)
--- NOTE | 2020-01-01 15:07 | DI.CT.S_ITS ---
PROCEDURE: CT ABDOMEN PELVIS W CON INDICATIONS: severe pain, recent surgery for volvulus TECHNIQUE: After the administration of intravenous contrast, 5 mm thick sections acquired from the diaphragm to the symphysis. 5 mm coronal and sagittal reformats were acquired. For radiation dose reduction, the following was used: automated exposure control, adjustment of mA and/or kV according to patient size. COMPARISON: [facility], CT, CT ABDOMEN PELVIS W CON, 09/24/2019, 9:53. FINDINGS: Image quality: Excellent. ABDOMEN: Lung bases: Lung bases are clear. Heart size is normal. Solid organs: Liver is normal in size and enhancement. Gallbladder is within normal limits . Biliary system is non dilated. Pancreas enhances normally. Prominent pancreatic duct measuring 4 mm, as before. Spleen is normal in size and enhancement. No adrenal nodules. Kidneys demonstrate normal size and enhancement, without hydronephrosis. Peritoneum and bowel: Ligament of Treitz is right-sided. Colon is left-sided. Appendix is not seen. No evidence of appendicitis. Bowel loops demonstrate normal wall thickness and caliber. No free fluid or air. Nodes and vessels: No retroperitoneal or mesenteric adenopathy by size criteria. Aorta and inferior vena cava are normal in size. Miscellaneous: No ventral hernias. PELVIS: Genitourinary: Bladder wall thickness is normal. Miscellaneous: No inguinal hernias or adenopathy. Bones: No suspicious bony lesions. No vertebral body compression fractures. IMPRESSION: 1. No change in congenital bowel malrotation. 2. No acute process. 3. No change in pancreatic ductal prominence. Dictated by: Brian Cline M.D. on 01/01/2020 at 15:54 Approved by: Brian Cline M.D. on 01/01/2020 at 15:57
[2020-01-01 15:10] LABS: Add Manual Diff / Slide Review NO; Basophils Absolute Auto 0 /uL (0-100); Basophils Percent Auto 0.4 % (0-2); Eosinophils Absolute Auto 100 /uL (0-450); Eosinophils Percent Auto 1.9 % (2-4); Hematocrit 45.3 % (41-53); Hemoglobin 15.4 g/dL (13.5-17.5); Lymphocytes Absolute Auto 1000 /uL (1100-4500); Lymphocytes Percent Auto 12.8 % (25-40); Mean Corpuscular Volume 88.4 fL (80-100); Monocytes Absolute Auto 500 /uL (0-900); Monocytes Percent Auto 6.1 % (3-14); Neutrophils Absolute Auto 6100 /uL (1500-7000); Neutrophils Percent Auto 78.8 % (50-75); Platelet Count 276 X10^3/uL (150-400); Red Blood Cell Count 5.12 X10^6/uL (4.5-5.9); White Blood Cell Count 7.8 X10^3/uL (4.5-11.0)
[2020-01-01 15:23] LABS: Alanine Aminotransferase 17 IU/L (<50); Albumin 5.1 g/dL (3.5-5.0); Albumin Globulin Ratio 1.2 (1.0-2.8); Alkaline Phosphatase 75 U/L (38-126); Aspartate Aminotransferase 19 IU/L (17-59); BUN Creatinine Ratio 13.6 (6-22); Bilirubin Total 0.6 mg/dL (0.2-1.3); Blood Urea Nitrogen 12 mg/dL (9-20); Calcium 9.8 mg/dL (8.4-10.2); Carbon Dioxide 20 mmol/L (22-32); Chloride 104 mmol/L (98-107); Estimated Glomerular Filt Rate > 60.0 mL/min (>60); Globulin 4.2 g/dL (1.7-4.1); Glucose 161 mg/dL (70-100); HEMOLYSIS < 15 (0-50); Potassium 3.6 mmol/L (3.4-5.1); Sodium 138 mmol/L (137-145); Total Protein 9.3 g/dL (6.3-8.2)
[2020-01-01 15:25] LABS: Lactate (Lactic Acid) 4.3 mmol/L (0.7-2.1)
[2020-01-01] MEDS: metroNIDAZOLE 500 MG/100 ML PIGGYBACK 100 MG IV (15:43)
[2020-01-01 15:56] LABS: Bacteria Urine None Seen
[2020-01-01 16:14] LABS: Culture Indicated Urine Cult Not Indicated; RBC Urine 0-1/HPF (0-5/HPF); WBC Urine 1-5/HPF (0-5/HPF)
[2020-01-01] MEDS: SODIUM CHLORIDE 0.9% 1,000 ML 1000 ML IV (16:36)
[2020-01-01] MEDS: levoFLOXacin 500 MG/100 ML PIGGYBACK 100 MG IV (16:50)
[2020-01-01 17:02] LABS: Reflexed Lactate in 2 Hours Y
[2020-01-01 17:34] LABS: Lactate 2HR (Lactic Acid Rflx) 3.7 mmol/L (0.7-2.1)
== END 2020-01-01 19:30 | disposition home or self-care (01) ==
PROVIDERS: Emergency Provider Emergency Medicine; PCP Family Medicine
DX: R10.9 Unspecified abdominal pain (principal); R79.89 Other specified abnormal findings of blood chemistry; R11.2 Nausea with vomiting, unspecified
CPT/HCPCS: 36415; 74177; 80053; 81003; 81015; 83605; 85025; 87040; 96361; 96365; 96367; 96375; 99284; J1170; J1956; J2765

== ENCOUNTER → 2020-04-24 16:56 | Outpatient (CLI) | payer OTHER, MEDICAID, SELFPAY ==
[2020-04-23 16:24] VITALS: BMI 26.2
[2020-04-24 17:26] LABS: COVID19 -Nasal RAPID Negative (Negative)
[2020-04-24 17:43] LABS: Influenza A - CEPHEID Flu A NEGATIVE (NEGATIVE); Influenza B - CEPHEID Flu B NEGATIVE (NEGATIVE)
== END ==
PROVIDERS: PCP Family Medicine; Visit Provider Student in an Organized Health Care Education/Training Program
DX: Z20.822 Contact with and (suspected) exposure to COVID-19 (principal); R05 Cough
CPT/HCPCS: 87502; 87635

== ENCOUNTER 2020-10-22 16:00 | Outpatient (RCR) | payer OTHER, MEDICAID, SELFPAY ==
[2020-04-23 16:24] VITALS: BMI 26.2
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
--- NOTE | 2020-09-11 16:42 | PT.OPPOC ---
Physical, Occupational & Speech Therapy At [facility] Current Diagnoses Other chronic pain (09/11/20) Pain in right shoulder (09/11/20) Pain in left shoulder (09/11/20) Stiffness of other specified joint, not elsewhere classified (09/11/20) Strain of muscle, fascia and tendon at neck level, initial encounter (09/11/20) Strain of muscle, fascia and tendon at neck level, subsequent encounter (09/11/20) Visit Care Team Role Provider Type Fazal Prado DO Attending Provider Physician Primary Care Provider Referring Provider Specialty: [facility] Address: [address] [place] [address], [facility] Email: [email or web address] Plan Of Care PT-OP-T Assessment and Plan Start: 09/11/20 12:41 Freq: Status: Active Protocol: Document 09/11/20 12:00 DCW (Rec: 09/11/20 16:40 DCW [id number]) Physical Therapy Assessment Rehab Potential Rehabilitation Potential Excellent Evaluation Complexity Number of Personal Factors/Comorbidities 0 Number of Body Systems Impaired 1-2 Clinical Presentation at Evaluation Stable Impairments Impairments Functional Activities, Functional Mobility,ROM,Soft Tissue Mobility,Strength,Tone Goals Two Impairment Moderate tone along entire left cervical/shoulder musculature Prison Goal (LTG) Pt to present with mild tone along bilateral cervical and shoulder musculature in order to limit sleep disturbances LTG Duration 10/23/20 One Impairment Pt does not have an appropriate home exercise program Short Term Goal (STG) Pt to be independent and compliant with an appropriate HEP STG Duration 10/02/20 Assessment Summary Assessment Pt presents with increased soft tissue hypertonia along left cervical and shoulder musculature. Pt has had similar symptoms previously in response to his multiple cervical injuries, however no cervical testing appeared to be positive at this time, and pt simply exhibiting significant reactive spasm. Pt admits he knows attending massage therapy session regularly would be beneficial to him, but he has not gotten around to it yet. Pt responded very well to [facility] today, brief ~15 minute session increased right cervical rotation from 30? to 60?, and right lateral flexion from 30? to 45?. Pt noted significant improvement in mobility and pain levels. Pt will benefit from a short course of skilled therapy to help decrease pain and tone initially, and will then likely do well with discharge to fairly regular (1-2x/month) appointments with a massage therapist. Physical Therapy Plan Frequency and Duration Frequency of Treatment 1x/Week Duration of Treatment Six weeks Plan of Care Start Date 09/11/20 Plan of Care End Date 10/23/20 Therapeutic Interventions Therapeutic Interventions Joint Mobilizations,Manual Therapy,Patient/Caregiver Education,Self-Care/Home Management,Soft Tissue Mobilization,Therapeutic Exercises Modalities Cold Pack/Ice Massage,Electric Stimulation,Hot Packs, Ultrasound Next Visit Focus/Plan Next Note Type Treatment Note Next Visit Plan STM, flexibility, cervical strengthening as tolerated Plan of Care Dates Plan of Care Start Date 09/11/20 Plan of Care End Date 10/23/20 Electronically Signed by: Shimon Smith, PT 09/11/20 9024 Please Sign and Return: I have reviewed this Plan of Care and certify that the skilled therapy services above are required to meet the patient?s needs. Physician Signature Date Printed Name and Credentials Clinical Instructor Signature Printed Name and Credentials
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
== END 2021-05-11 13:11 ==
LOC: PHYS 16:00
PROVIDERS: PCP Family Medicine; Referring Provider Family Medicine; Visit Provider Family Medicine
DX: M25.512 Pain in left shoulder (principal); M25.511 Pain in right shoulder; G89.29 Other chronic pain; M25.69 Stiffness of other specified joint, not elsewhere classified; S16.1XXD Strain of muscle, fascia and tendon at neck level, subsequent encounter; S16.1XXA Strain of muscle, fascia and tendon at neck level, initial encounter
CPT/HCPCS: 97140; 97161

== ENCOUNTER 2020-10-24 20:58 | Emergency (ER) | payer OTHER, MEDICAID, SELFPAY ==
[2020-04-23 16:24] VITALS: BMI 26.2
[2020-10-24 21:08] VITALS: BP 192/123; PULSE 84; RESP 22; O2SAT 100; BMI 27.1
--- NOTE | 2020-10-24 21:23 | ED_ITS ---
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 He said he was fine yesterday and this morning and this started abruptly this afternoon. He has vomited numerous times he has actually had some diarrhea as well. He is currently sweaty diaphoretic and actively vomiting loudly. He has diffuse all-over abdominal pain. No chest pain. Worried that he may have something wrong with his intestines again. He is not COVID vaccinated. Related Data Previous Rx's Medication Instructions Recorded fluoxetine 20 mg capsule 20 mg PO DAILY #90 cap 06/25/20 cyclobenzaprine 10 mg tablet 10 mg PO BEDTIME PRN #90 tab 07/14/20 meloxicam 15 mg tablet 15 mg PO DAILY #30 tab 07/14/20 oxycodone-acetaminophen 5 mg-325 1 tab PO Q4-6H PRN #60 tab 08/06/20 mg tablet (Endocet) oxycodone-acetaminophen 10 mg-325 1 tab PO Q8H PRN #30 tab 08/07/20 mg tablet metoclopramide HCl 10 mg tablet 10 mg PO Q6H PRN #20 tab 10/24/20 (Reglan) Allergies Allergy/AdvReac Type Severity Reaction Status Date / Time amoxicillin [AMOXICILLIN] Allergy Severe HIVES A Verified 10/24/20 21:11 CHILD Review of Systems Review of Systems Narrative: GENERAL: Denies chills, fatigue, malaise, fever, sweats, travel HEENT: Denies sinus pain, ear pain, sore throat, difficulty swallowing, neck pain RESPIRATORY: Denies dyspnea, cough, wheezing, hemoptysis, sputum. CARDIOVASCULAR: Denies chest pain, palpitations, orthopnea, edema GASTROINTESTINAL: See HPI : Denies dysuria, frequency, incontinence, hematuria, urinary retention, flank pain. MUSCULOSKELETAL: Denies weakness, joint pain, or bony pain SKIN: No rash, no erythema, no pruritus NEUROLOGIC: Denies weakness, dizziness, headache, numbness, change in speech, confusion PSYCHIATRIC: No concerning psychosocial issues. 12 point review of systems is negative except for those stated above and HPI Patient History Medical History (Updated 10/24/20 @ 23:30 by Jayda Bowie DO) Anxiety Atypical chest pain Bowel obstruction Cervical disc herniation (Unknown) Cervical strain Hemorrhoids Hx of pancreatitis (2013) Insomnia Intestinal malrotation Neck pain (Unknown) Rectal bleeding Shoulder pain (Unknown) Spondylolysis of cervical region Vision changes Surgical History History of fusion of cervical spine (2004) Hx of arthroscopy of shoulder (07/2014) Hx of cervical discectomy (03/2017) Family History Grandfather Cancer Social History marital status: household members: spouse and family occupational status: employed Smoking Status: Former smoker Tobacco: How many years used: 7 alcohol intake: never substance use type: marijuana Smoking Status: Former smoker alcohol intake frequency: 0-2 drinks per day Substance Use Type: marijuana Exam Initial Vital Signs Initial Vital Signs: Vital Signs Pulse Rate 84 10/24/20 21:08 Respiratory Rate 22 10/24/20 21:08 Blood Pressure 192/123 H 10/24/20 21:08 Pulse Oximetry 100 10/24/20 21:08 GENERAL: Alert 50-year-old male diaphoretic vomiting and in no acute distress. HEENT: Head atraumatic,EOMI, pupils reactive, face symmetric, moist mucous membranes CARDIOVASCULAR: Regular rate and rhythm without murmurs, rubs or gallops. RESPIRATORY: Breath sounds equal bilaterally, no wheezes rales or rhonchi. ABDOMEN: Soft, no distension, diffusely tender no localization of pain EXTREMITIES: Normal range of motion, no clubbing or edema. Neurovascularly intact NEUROLOGICAL: Alert and oriented x4.Normal gait and speech. SKIN: Warm, dry, no laceration, no petechiae, no rashes or lesions. Course Orders Ordered: ED Orders 10/24/20 21:05 COVID19 -Nasal swab/Pre-Proc Stat Complete Blood Count AUTO DIFF Stat Comprehensive Metabolic Panel Stat Lipase Stat 10/24/20 21:17 EKG-12 Lead Stat 10/24/20 21:58 CT abdomen pelvis w con Stat Discontinued Medications Hydromorphone HCl (Hydromorphone 1 Mg Inj) 1 mg IV NOW ONE Stop: 10/24/20 21:25 Last Admin: 10/24/20 21:29 Dose: 1 mg Documented by: NURIA Sodium Chloride (Normal Saline 0.9%) 1,000 mls @ 1,000 mls/hr IV BOLUS ONE Stop: 10/24/20 22:23 Last Infusion: 10/24/20 23:08 Dose: 0 mls/hr Documented by: Admin: 10/24/20 21:29 Dose: 1,000 mls/hr Documented by: NURIA Metoclopramide HCl (Metoclopramide 10 Mg/2 Ml Inj) 10 mg IV NOW ONE Stop: 10/24/20 21:25 Last Admin: 10/24/20 21:29 Dose: 10 mg Documented by: NURIA Pantoprazole Sodium (Pantoprazole 40 Mg Vial) 40 mg IV NOW ONE Stop: 10/24/20 21:26 Last Admin: 10/24/20 21:28 Dose: 40 mg Documented by: NURIA Vital Signs Vital signs: Vital Signs - 8 hr 10/24/20 21:08 10/24/20 21:30 10/24/20 22:00 Pulse Rate 84 74 54 L Respiratory Rate 22 Blood Pressure 192/123 H 183/86 H 177/94 H Pulse Oximetry 100 100 97 10/24/20 23:38 Pulse Rate 76 Respiratory Rate 16 Blood Pressure 160/87 H Pulse Oximetry 98 MDM - Abdominal Pain Lab Data Result diagrams: 10/24/20 21:05 10/24/20 21:05 Labs: Lab Results 10/24/20 10/24/20 10/24/20 Range/Units 21:05 21:05 21:05 WBC 14.7 H (4.5-11.0) X10^3/uL RBC 5.29 (4.5-5.9) X10^6/uL Hgb 15.8 (13.5-17.5) g/dL Hct 47.3 (41-53) % MCV 89.3 (80-100) fL MCH 29.9 (26-34) PG MCHC 33.5 (30-36) % RDW 13.7 (11.6-14.8) % Plt Count 292 (150-400) X10^3/uL Neut % (Auto) 85.2 H (50-75) % Lymph % (Auto) 7.7 L (25-40) % [place] % (Auto) 5.3 (3-14) % Eos % (Auto) 1.5 L (2-4) % Baso % (Auto) 0.3 (0-2) % Neut # (Auto) 39341 H (7320-2263) /uL Lymph # (Auto) 1100 (1730-3305) /uL [place] # (Auto) 800 (0-900) /uL Eos # (Auto) 200 (0-450) /uL Baso # (Auto) 100 (0-100) /uL Sodium 141 (137-145) mmol/L Potassium 3.8 (3.4-5.1) mmol/L Chloride 107 (98-107) mmol/L Carbon Dioxide 19 L (22-32) mmol/L BUN 16 (9-20) mg/dL Creatinine 1.05 (0.66-1.25) mg/dL Estimated GFR > 60.0 (>60) mL/min BUN/Creatinine Ratio 15.2 (6-22) Glucose 150 H (70-100) mg/dL Calcium 10.0 (8.4-10.2) mg/dL Total Bilirubin 0.8 (0.2-1.3) mg/dL AST 26 (17-59) IU/L ALT 23 (<50) IU/L Alkaline Phosphatase 79 (38-126) U/L Total Protein 9.0 H (6.3-8.2) g/dL Albumin 5.0 (3.5-5.0) g/dL Globulin 4.0 (1.7-4.1) g/dL Albumin/Globulin Ratio 1.3 (1.0-2.8) Lipase 3084 H (23-300) U/L SARS-CoV-2 (PCR) Negative (Negative) Imaging Data CT scan - abdomen/pelvis: Radiologist's Impression: Preliminary report no acute disease in abdomen or pelvis. No evidence of bowel obstruction or free air. Mild prominence of pancreatic duct without focal lesion clips are noted in upper abdomen no visible gallstones or pericholecystic inflammation trace pericardial effusion patient has a history of malrotation majority of small bowel is on the right the colon is predominantly on the left ECG Data Interpretation: Normal sinus rhythm rate 81 MO interval 170 QRS [address] changes no T-wave inversion, similar to previous EKG MDM Narrative Medical decision making narrative: Patient is found have pancreatitis with lipase greater than 3000. Recommended that patient stay in hospital for pancreatitis. However at this time after pain medications and Reglan he is feeling significantly better. He has been able to keep fluids down he no longer has pain. He is quite adamant about going home. I have discussed this with both he and his . Patient will return to the ED if needed. I discussed all findings with the patient and , Education has been performed regarding treatment plan, diagnosis, warning signs and symptoms and all concerns have been addressed. Verbally agree with and understood all of the above. The patient is clinically sober, free from distracting injury, appears to have i ntact insight, judgment and reason. Does not meet criteria for involuntary hospitalization. Patient has the capacity to make decisions. Discharge Plan Departure Patient Disposition: Home Clinical Impression: Acute pancreatitis Qualifiers: Pancreatitis type: unspecified pancreatitis type Acute pancreatitis complication: unspecified Qualified Code(s): K85.90 - Acute pancreatitis without necrosis or infection, unspecified Instructions: Acute Pancreatitis, Clear Liquid Diet Activity Restrictions/Additional Instructions: *You have been diagnosed with pancreatitis *What to do: You were given option of staying in the hospital for IV fluids, pain medication and nausea medication. At this time have opted to go home and try be treated at home. I recommend staying on a clear liquid diet including Gatorade or Gatorade like product. May advance diet as tolerated. Symptoms may worsen in you may require admission to the hospital. There is risk of becoming dehydrated, having infection which can lead to disability or . You are welcome to return to emergency department at any time for further t reatment. *Continue to take medications as directed Reglan 10 mg every 6 hours if needed for nausea or vomiting--> SENT TO [facility] *Follow up with your primary care provider in 2-3 days *Return to ER if you should have increasing abdominal pain, persistent vomiting, unable to keep liquids down, fever or any new, worsening or concerning symptoms Prescriptions: New metoclopramide HCl [Reglan] 10 mg tablet 10 mg PO Q6H PRN (Reason: nausea and vomiting) Qty: 20 RF: 0 No Action fluoxetine 20 mg capsule 20 mg PO DAILY Qty: 90 RF: 1 oxycodone-acetaminophen [Endocet] 5-325 mg tablet 1 tab PO Q4-6H PRN (Reason: Chronic neck pain) Qty: 60 RF: 0 oxycodone-acetaminophen 10-325 mg tablet 1 tab PO Q8H PRN (Reason: pain) Qty: 30 RF: 0 meloxicam 15 mg tablet 15 mg PO DAILY Qty: 30 RF: 1 cyclobenzaprine 10 mg tablet 10 mg PO BEDTIME PRN (Reason: muscle spasm) Qty: 90 RF: 1 Referrals: Fazal Prado, [Primary Care Provider] -
[2020-10-24] MEDS: PANTOPRAZOLE 40 MG VIAL IV (21:28)
[2020-10-24] MEDS: SODIUM CHLORIDE 0.9% 1,000 ML 1000 ML IV (21:29)
[2020-10-24] MEDS: METOCLOPRAMIDE 10 MG/2 ML INJ IV (21:29)
[2020-10-24] MEDS: HYDROMORPHONE 1 MG INJ IV (21:29)
[2020-10-24 21:30] VITALS: BP 183/86; PULSE 74; O2SAT 100
[2020-10-24 21:33] LABS: Add Manual Diff / Slide Review NO; Basophils Absolute Auto 100 /uL (0-100); Basophils Percent Auto 0.3 % (0-2); Eosinophils Absolute Auto 200 /uL (0-450); Eosinophils Percent Auto 1.5 % (2-4); Hematocrit 47.3 % (41-53); Hemoglobin 15.8 g/dL (13.5-17.5); Lymphocytes Absolute Auto 1100 /uL (1100-4500); Lymphocytes Percent Auto 7.7 % (25-40); Mean Corpuscular HGB Conc 33.5 % (30-36); Mean Corpuscular Hemoglobin 29.9 PG (26-34); Mean Corpuscular Volume 89.3 fL (80-100); Monocytes Absolute Auto 800 /uL (0-900); Monocytes Percent Auto 5.3 % (3-14); Neutrophils Absolute Auto 12500 /uL (1500-7000); Neutrophils Percent Auto 85.2 % (50-75); Platelet Count 292 X10^3/uL (150-400); Red Blood Cell Count 5.29 X10^6/uL (4.5-5.9); Red Cell Distribution Width 13.7 % (11.6-14.8); White Blood Cell Count 14.7 X10^3/uL (4.5-11.0)
[2020-10-24 21:45] LABS: Alanine Aminotransferase 23 IU/L (<50); Albumin Globulin Ratio 1.3 (1.0-2.8); Alkaline Phosphatase 79 U/L (38-126); Aspartate Aminotransferase 26 IU/L (17-59); BUN Creatinine Ratio 15.2 (6-22); Bilirubin Total 0.8 mg/dL (0.2-1.3); Blood Urea Nitrogen 16 mg/dL (9-20); Carbon Dioxide 19 mmol/L (22-32); Chloride 107 mmol/L (98-107); Estimated Glomerular Filt Rate > 60.0 mL/min (>60); Glucose 150 mg/dL (70-100); HEMOLYSIS < 15 (0-50); Potassium 3.8 mmol/L (3.4-5.1); Sodium 141 mmol/L (137-145)
[2020-10-24 21:46] LABS: COVID19 -Nasal RAPID Negative (Negative)
[2020-10-24 21:56] LABS: Lipase 3084 U/L (23-300)
--- NOTE | 2020-10-24 21:58 | DI.CT.S_ITS ---
PROCEDURE: CT ABDOMEN PELVIS W CON INDICATIONS: n/v hx malrotation TECHNIQUE: After the administration of IV contrast, axial sections were acquired from the lung bases to the pubic symphysis. Coronal and sagittal reformats were performed. For radiation dose reduction, the following was used: automated exposure control, adjustment of mA and/or kV according to patient size. COMPARISON: [facility], CT, ABDOMEN/PELVIS WITH CONTRAST, 12/03/2013, 21:37. [facility], CT, CT ABDOMEN PELVIS W CON, 01/01/2020, 15:28. [facility], CT, CT ABDOMEN PELVIS W CON, 09/24/2019, 9:53. [facility], CT, CT ABDOMEN PELVIS W CON, 08/24/2019, 13:25. [facility], CT, CT KIDNEY URETER BLADDER (KUB), 03/18/2019, 20:11. FINDINGS: Image quality: Excellent. Lung bases: A 2 mm left costophrenic angle nodule is seen, which is stable compared to 2013. Heart: No significant findings. ABDOMEN: Liver: Unremarkable. Gallbladder: Unremarkable. Biliary ducts: Unremarkable. Pancreas: Unremarkable. Spleen: Unremarkable. Adrenal Glands: There is generalized thickening seen of the left adrenal gland. This is stable compared to 2013. No right adrenal gland abnormality can be seen. Kidneys and Ureters: Along the posterior aspect of the left kidney, there is a simple appearing cyst again seen. The kidneys demonstrate normal size and symmetric enhancement. There is no hydronephrosis. Stomach and Bowel: Upper abdominal postoperative clips are seen. Malrotation is seen, with the colon largely on the left side of the abdomen. The cecum is seen to the left of the midline. The small bowel is seen largely on the right side. No dilated loops of small bowel are seen. Peritoneum: No abnormal intraperitoneal fluid. No free air. Ventral Wall: No hernia. Abdominal Nodes: No retroperitoneal or mesenteric adenopathy by size criteria. Vessels: Aorta and inferior vena cava are normal in size. The superior mesenteric vein is seen to the left of the superior mesenteric artery. PELVIS: Pelvic Organs: Unremarkable. Bladder: Unremarkable. Pelvic Nodes: No enlarged lymph nodes. Miscellaneous: No inguinal hernias are seen. Bones: Unremarkable. IMPRESSION: No dilated loops of small bowel are seen. Rotation again seen. Upper abdominal clips can be seen. 2 mm left costophrenic angle nodule seen. This is stable compared to 2013 and regarded to be benign. Stable thickening of the left adrenal gland, which is unchanged compared to 2014. This is considered to be benign. Note: No significant discrepancy from the preliminary report. Dictated by: Ren Carrasquillo M.D. on 10/25/2020 at 9:14 Approved by: Ren Carrasquillo M.D. on 10/25/2020 at 9:20
[2020-10-24 22:00] VITALS: BP 177/94; PULSE 54; O2SAT 97
[2020-10-24 23:38] VITALS: BP 160/87; PULSE 76; RESP 16; O2SAT 98
== END 2020-10-24 23:39 | disposition home or self-care (01) ==
PROVIDERS: Emergency Provider Emergency Medicine; PCP Family Medicine
DX: K85.90 Acute pancreatitis without necrosis or infection, unspecified (principal); R10.9 Unspecified abdominal pain; R11.2 Nausea with vomiting, unspecified; Z20.822 Contact with and (suspected) exposure to COVID-19
CPT/HCPCS: 74177; 80053; 83690; 85025; 87635; 93005; 93010; 96361; 96374; 96375; 99284; C9803; C9113; J1170; J2765; Q9967

== ENCOUNTER → 2021-02-11 08:46 | Outpatient (CLI) | payer OTHER, MEDICAID, SELFPAY ==
[2020-04-23 16:24] VITALS: BMI 26.2
--- NOTE | 2021-02-12 09:18 | P.PCN_ITS ---
Cardiac Stress Test Report Referral & Results Date Patient Seen: 02/12/21 Time Patient Seen: 09:00 Requesting provider: Andrzej Brown Indication: Angina Rest ECG: NSR Procedure Note: Today following both written and verbal informed consent the patient was exercised according to a standard Nico protocol patient went for a total of 7 minutes 45 seconds achieving a maximum heart rate of 154 maximum systolic blood pressure of 206. This is approximately 10.1 METs. Exercise was terminated at this point because of fatigue. Cardiolite targets met. Patient was also given Cardiolite through a previously started Hep-Lock IV by the electronic lab technician approximately 1 minute prior to the cessation of exercise. Normal hemodynamic response to exercise. Moderate exercise capacity impairment (FA I +25% on active scale). No changes in rhythm. No ST deviations. No signs or symptoms of angina. Presenting symptom not reproduced on exercise. Impression: Intermediate probability for ischemia. Perfusion imaging is pending. Please note: Actual ECG tracings can be found in the PACS system.
--- NOTE | 2021-02-12 19:04 | DI.NM.S_ITS ---
DATE OF SERVICE: 02/11/2021 PROCEDURE: Exercise perfusion study. INDICATION: Retrosternal chest discomfort, hypertension, palpitation. RADIOPHARMACEUTICAL: 26.0 millicurie technetium-99m Myoview IV was injected at stress and 27.4 millicurie technetium-99m Myoview IV was injected at rest. CARDIAC STRESS: The patient underwent exercise perfusion study under the supervision of an attending staff. The patient walked on Nico protocol for 7 minutes and 45 seconds, achieved 90 percent of target heart rate. Resting blood pressure 130/96 mmHg. Peak blood pressure 206/100 mmHg. MICHAEL positive 25 percent. The patient achieved 10.1 METs of workload. RAW DATA: There is increased subdiaphragmatic activity. GATED STUDY: Stress LV ejection fraction 68 and resting LV ejection fraction 66 percent without any obvious wall motion abnormalities. Resting end-diastolic volume 171 mL. TID ratio 0.94, which is within normal limits. Lung/heart ratio 0.40, which is within normal limits. MYOCARDIAL PERFUSION SCAN: The stress supine, resting supine and stress prone images were compared to each other. The stress and resting supine images revealed moderate size, mildly decreased perfusion of inferior wall, which got significantly improved during the stress prone images, suggestive of diaphragmatic tissue attenuation artifact. No convincing ischemia or infarction during stress prone images. CONCLUSION: I will call this study a normal myocardial perfusion study with evidence of diaphragmatic tissue attenuation artifact, which got resolved during stress prone images. Diminished exercise tolerance. Mildly hypertensive blood pressure response. No anginal symptoms. No obvious ischemic electrocardiographic changes. No significant arrhythmias. Overall low-risk exercise perfusion study. Chan Talley - Tg/john doc#: [id number]/job#: [id number] dd: 02/12/2021 17:13:00 dt: 02/12/2021 17:46:00 DICTATING MD/COPIES TO: Cheikh Kamara MD COPIES MNE: CHANO;
== END ==
PROVIDERS: PCP Family Medicine; Referring Provider Student in an Organized Health Care Education/Training Program; Visit Provider Student in an Organized Health Care Education/Training Program
DX: I20.8 Other forms of angina pectoris (principal); I10 Essential (primary) hypertension; Z20.822 Contact with and (suspected) exposure to COVID-19
CPT/HCPCS: 78452; 87635; 93016; 93017; 93018; C9803; A9502

== ENCOUNTER → 2021-02-11 10:07 | Outpatient (CLI) | payer OTHER, MEDICAID, SELFPAY ==
[2020-04-23 16:24] VITALS: BMI 26.2
[2021-02-11 12:41] LABS: COVID19 -Nasal RAPID Negative (Negative)
== END ==
PROVIDERS: PCP Family Medicine; Visit Provider Physician Assistant
DX: Z20.822 Contact with and (suspected) exposure to COVID-19 (principal)
CPT/HCPCS: 87635

== ENCOUNTER → 2022-04-05 10:33 | Outpatient (CLI) | payer OTHER, MEDICAID, SELFPAY ==
[2020-04-23 16:24] VITALS: BMI 26.2
--- NOTE | 2022-04-05 10:35 | DI.RAD.S_ITS ---
PROCEDURE: XR CHEST 2V INDICATIONS: chronic cough TECHNIQUE: 2 views of the chest were acquired. COMPARISON: [facility], CR, XR CHEST 2V, 05/18/2018, 13:41. FINDINGS: Surgical changes and devices: None. Lungs and pleura: Increased bronchovascular markings in bilateral hilar region are seen with mild bronchial wall thickening. No focal infiltrate. No pleural effusions or pneumothorax. Mediastinum: Mediastinal contours are normal. Heart size is normal. Bones and chest wall: No suspicious bony abnormalities. Soft tissues appear unremarkable. IMPRESSION: Finding is suggestive of mild chronic reactive airway disease such as bronchitis or asthma. No focal infiltrate, pleural effusion or pneumothorax. Dictated by: Lito Mc M.D. on 04/05/2022 at 13:38 Approved by: Lito Mc M.D. on 04/05/2022 at 13:39
[2022-04-05 11:16] LABS: Add Manual Diff / Slide Review NO; Basophils Absolute Auto 0 /uL (0-100); Basophils Percent Auto 0.7 % (0-2); Eosinophils Absolute Auto 400 /uL (0-450); Eosinophils Percent Auto 8.1 % (2-4); Hematocrit 40.5 % (41-53); Hemoglobin 13.8 g/dL (13.5-17.5); Lymphocytes Absolute Auto 1400 /uL (1100-4500); Mean Corpuscular Hemoglobin 29.8 PG (26-34); Mean Corpuscular Volume 87.7 fL (80-100); Monocytes Absolute Auto 400 /uL (0-900); Monocytes Percent Auto 10.1 % (3-14); Neutrophils Absolute Auto 2200 /uL (1500-7000); Neutrophils Percent Auto 49.1 % (50-75); Platelet Count 250 X10^3/uL (150-400); Red Blood Cell Count 4.62 X10^6/uL (4.5-5.9); Red Cell Distribution Width 14.1 % (11.6-14.8); White Blood Cell Count 4.4 X10^3/uL (4.5-11.0)
[2022-04-05 11:27] LABS: Hemoglobin A1C% w Est Avg Glu 5.9 % (4.0-6.0)
[2022-04-05 11:29] LABS: Alanine Aminotransferase 20 IU/L (<50); Albumin 4.4 g/dL (3.5-5.0); Albumin Globulin Ratio 1.3 (1.0-2.8); Alkaline Phosphatase 51 U/L (38-126); Aspartate Aminotransferase 19 IU/L (17-59); BUN Creatinine Ratio 15.3 (6-22); Bilirubin Total 0.3 mg/dL (0.2-1.3); Blood Urea Nitrogen 13 mg/dL (9-20); Calcium 8.7 mg/dL (8.4-10.2); Carbon Dioxide 29 mmol/L (22-32); Chloride 104 mmol/L (98-107); Cholesterol 256 mg/dL (140-199); Estimated Glomerular Filt Rate > 60 mL/min (>60); Globulin 3.5 g/dL (1.7-4.1); Glucose 104 mg/dL (70-100); HDL Cholesterol 50 mg/dL (40-60); HEMOLYSIS < 15 (0-50); LDL Cholesterol Calculated 178 mg/dL (<100); Potassium 4.1 mmol/L (3.4-5.1); Sodium 138 mmol/L (137-145); Total Protein 7.9 g/dL (6.3-8.2); Triglycerides 140 mg/dL (35-150)
== END ==
PROVIDERS: PCP Family Medicine; Referring Provider Family Medicine; Visit Provider Family Medicine
DX: R05.3 Chronic cough (principal); M54.2 Cervicalgia; Z13.1 Encounter for screening for diabetes mellitus; R03.0 Elevated blood-pressure reading, without diagnosis of hypertension; R73.09 Other abnormal glucose; G89.29 Other chronic pain
CPT/HCPCS: 36415; 71046; 80053; 80061; 83036; 85025

== ENCOUNTER 2022-05-26 13:03 | Emergency (ER) | payer OTHER, MEDICAID, SELFPAY ==
[2020-04-23 16:24] VITALS: BMI 26.2
[2022-05-26] VITALS (7 sets, daily range): BP systolic 120–195; BP diastolic 60–101; PULSE 61–75; RESP 16–24; TEMP 36.6; O2SAT 95–100
--- NOTE | 2022-05-26 13:09 | DI.RAD.S_ITS ---
PROCEDURE: XR CHEST 1V INDICATIONS: chest pain TECHNIQUE: One view of the chest was acquired. COMPARISON: [facility], CR, XR CHEST 2V, 04/05/2022, 10:41. FINDINGS: Surgical changes and devices: None. Lungs and pleura: Lungs are clear. No pleural effusions or pneumothorax. Mediastinum: Mediastinal contours appear normal. Heart size is normal. Bones and chest wall: No suspicious bony lesions. Overlying soft tissues appear unremarkable. IMPRESSION: No acute cardiopulmonary disease. Dictated by: Irvin Stevens M.D. on 05/26/2022 at 14:05 Approved by: Irvin Stevens M.D. on 05/26/2022 at 14:05
[2022-05-26 13:15] LABS: Add Manual Diff / Slide Review NO; Basophils Absolute Auto 0 /uL (0-100); Basophils Percent Auto 0.5 % (0-2); Eosinophils Absolute Auto 100 /uL (0-450); Eosinophils Percent Auto 1.1 % (2-4); Hematocrit 42.7 % (41-53); Hemoglobin 14.3 g/dL (13.5-17.5); Lymphocytes Absolute Auto 1200 /uL (1100-4500); Lymphocytes Percent Auto 12.5 % (25-40); Mean Corpuscular HGB Conc 33.5 % (30-36); Mean Corpuscular Hemoglobin 29.7 PG (26-34); Mean Corpuscular Volume 88.6 fL (80-100); Monocytes Absolute Auto 600 /uL (0-900); Monocytes Percent Auto 6.2 % (3-14); Neutrophils Absolute Auto 7600 /uL (1500-7000); Neutrophils Percent Auto 79.7 % (50-75); Platelet Count 324 X10^3/uL (150-400); Red Blood Cell Count 4.82 X10^6/uL (4.5-5.9); Red Cell Distribution Width 13.6 % (11.6-14.8); White Blood Cell Count 9.5 X10^3/uL (4.5-11.0)
--- NOTE | 2022-05-26 13:16 | DI.CT.S_ITS ---
PROCEDURE: CT ABDOMEN PELVIS W CON INDICATIONS: ABD pain hx of malrotation TECHNIQUE: After the administration of IV contrast, axial sections were acquired from the lung bases to the pubic symphysis. Coronal and sagittal reformats were performed. For radiation dose reduction, the following was used: automated exposure control, adjustment of mA and/or kV according to patient size. COMPARISON: [facility], CT, CT ABDOMEN PELVIS W CON, 01/01/2020, 15:28. [facility], CT, CT ABDOMEN PELVIS W CON, 10/24/2020, 22:06. FINDINGS: Image quality: Excellent. Lung bases: No pleural effusion. Left lung base calcified granuloma.. Heart: No significant findings. ABDOMEN: Liver: No focal lesion. Gallbladder: Within normal limits. Biliary ducts: Unremarkable. Pancreas: Unremarkable. Spleen: Unremarkable. Adrenal Glands: Unremarkable. Kidneys and Ureters: No hydronephrosis. Small low-density cyst at the superior pole the left kidney. Stomach and Bowel: Stomach is not distended. Clips in the upper abdomen. Duodenal is displaced in the left abdomen. No small bowel obstruction. The cecum is located in the left upper quadrant. Diverticulosis. The appendix is not identified. Peritoneum: No abnormal intraperitoneal fluid. No free air. Ventral Wall: No hernia. Abdominal Nodes: No retroperitoneal or mesenteric adenopathy by size criteria. Vessels: Aorta and inferior vena cava are normal in size. The SMA is located to the right of the SMV. PELVIS: Pelvic Organs: Unremarkable. Bladder: No stone. Pelvic Nodes: No enlarged lymph nodes. Miscellaneous: No inguinal hernias are seen. Bones: No suspicious lesion. IMPRESSION: 1. No small bowel obstruction. No free fluid. 2. Bowel malrotation. 3. Diverticulosis. No diverticulitis. Dictated by: Carlos Peters M.D. on 05/26/2022 at 14:52 Approved by: Carlos Peters M.D. on 05/26/2022 at 15:02
--- NOTE | 2022-05-26 13:17 | ED_ITS ---
HPI - General Adult General Chief complaint: Abdominal Pain Stated complaint: chest pain, Abd pain, vomiting Time Seen by Provider: 05/26/22 13:07 Source: patient and EMS Mode of arrival: EMS Limitations: no limitations History of Present Illness HPI narrative: Patient is a 51-year-old male. Here for evaluation of abdominal pain and vomiting. He states it started approximately 2 hours ago after having a bowel m ovement. Approximately 1 year ago he did have very similar symptoms. He would a CT scan which showed a malrotation. He would surgery for that. He states that since that time he has occasional abdominal discomfort that is very similar to this and starts after having a bowel movement however at normally eases up and goes away in a shorter period of time and today is just been more persistent. No urinary symptoms. He did not have diarrhea at the onset of the symptoms. He has seen GI. He states that ?they do not know ?what causes his symptoms that he presents with today. No fevers. No recent antibiotics. He was also complaining of chest pain and shortness of breath. Prior to arrival he did receive 25 mg of ketamine, 100 mcg of fentanyl and 25 mg of Phenergan. Related Data Previous Rx's Medication Instructions Recorded metoclopramide HCl 10 mg tablet 10 mg PO Q6H PRN nausea and 10/24/20 (Reglan) vomiting #20 tabs cyclobenzaprine 10 mg tablet 10 mg PO BEDTIME PRN muscle spasm 01/01/22 #90 tabs escitalopram oxalate 20 mg tablet 20 mg PO DAILY mood #30 tabs 01/01/22 (Lexapro) oxycodone 10 mg tablet 10 mg PO BID PRN pain #30 tabs 01/01/22 albuterol sulfate 90 mcg/actuation 1 - 2 inh inhalation Q4-6H PRN 04/05/22 aerosol inhaler shortness of breath or wheezing #8.5 grams methylprednisolone 4 mg tablets in See Rx Instructions PO PER PKG DIR 04/05/22 a dose pack (Medrol (Du)) #21 ea atorvastatin 10 mg tablet 10 mg PO BEDTIME #90 tabs 05/11/22 fluticasone 250 mcg-salmeterol 50 1 inh inhalation BID #60 ea 05/11/22 mcg/dose blistr powdr for inhalation (Advair Diskus) lisinopril 20 1 tab PO DAILY #90 tabs 05/11/22 mg-hydrochlorothiazide 12.5 mg tablet tamsulosin 0.4 mg capsule 0.4 mg PO BEDTIME #90 caps 05/11/22 Allergies Allergy/AdvReac Type Severity Reaction Status Date / Time amoxicillin [AMOXICILLIN] Allergy Severe HIVES A Verified 05/26/22 13:16 CHILD Review of Systems Constitutional Constitutional: Reports system reviewed and no additional complaints, except as documented Gastrointestinal Gastrointestinal: Reports system reviewed and no additional complaints, except as documented Genitourinary Genitourinary: Reports system reviewed and no additional complaints, except as documented Integumentary/Breasts Skin/Breast: Reports system reviewed and no additional complaints, except as documented Neurologic Neurologic: Reports system reviewed and no additional complaints, except as documented Hematologic/Lymphatic On Anticoagulants: No Patient History Medical History Acute hemorrhoid Anxiety Asthma Atypical chest pain Bowel obstruction BPH (benign prostatic hyperplasia) Cervical disc herniation (Unknown) Cervical strain Hemorrhoids Hemorrhoids Hx of pancreatitis (2013) Hyperlipidemia Hypertension Insomnia Intestinal malrotation Neck pain (Unknown) Rectal bleeding Shoulder pain (Unknown) Spondylolysis of cervical region Vision changes Surgical History History of fusion of cervical spine (2004) Hx of arthroscopy of shoulder (07/2014) Hx of cervical discectomy (03/2017) Family History Grandfather Cancer Social History marital status: household members: spouse and family occupational status: employed Smoking Status: Former smoker Tobacco: How many years used: 7 alcohol intake: never substance use type: marijuana Smoking Status: Former smoker alcohol intake frequency: 0-2 drinks per day Substance Use Type: marijuana Exam Initial Vital Signs Initial Vital Signs: Vital Signs Temperature 98 F 05/26/22 13:11 Pulse Rate 64 05/26/22 13:11 Respiratory Rate 20 05/26/22 13:11 Blood Pressure 195/93 H 05/26/22 13:11 Pulse Oximetry 99 05/26/22 13:11 Oxygen Delivery Method Room Air 05/26/22 13:11 Const General: other (Uncomfortable) HENMT Head: normal to inspection and normocephalic Resp Effort & Inspection: normal respiratory effort Auscultation: clear to auscultation bilaterally Cardio Rate: regular rate Rhythm: regular rhythm GI Inspection: non-distended Palpation: tender Skin General: no rashes or lesions noted Neuro General: patient alert, patient awake and moves all extremities Extrem General: normal to inspection and capillary refill normal Psych Appearance: grossly normal Course Orders Ordered: ED Orders 05/26/22 13:09 XR chest 1V Stat 05/26/22 13:10 Complete Blood Count AUTO DIFF Stat Comprehensive Metabolic Panel Stat Lipase Stat Troponin & CK Cardiac Panel Stat 05/26/22 13:16 CT abdomen pelvis w con Stat 05/26/22 13:24 EKG-12 Lead Stat 05/26/22 14:05 Urine Microscopic Stat Discontinued Medications Hydromorphone HCl (Hydromorphone 1 Mg Inj) 1 mg IV NOW ONE Stop: 05/26/22 13:17 Last Admin: 05/26/22 17:24 Dose: Not Given Documented By: AT Sodium Chloride (Normal Saline 0.9%) 1,000 mls @ 1,000 mls/hr IV BOLUS ONE Stop: 05/26/22 14:07 Last Infusion: 05/26/22 17:24 Dose: 0 mls/hr Documented By: Admin: 05/26/22 13:25 Dose: 1,000 mls/hr Documented By: AT Metoclopramide HCl (Metoclopramide 10 Mg/2 Ml Inj) 10 mg IV NOW ONE Stop: 05/26/22 13:11 Last Admin: 05/26/22 13:18 Dose: 10 mg Documented By: AT Ondansetron HCl (Ondansetron 4 Mg/2 Ml Inj) 4 mg IV NOW ONE Stop: 05/26/22 13:09 Last Admin: 05/26/22 13:24 Dose: Not Given Documented By: AT Ondansetron HCl (Ondansetron 4 Mg/2 Ml Inj) 4 mg IV NOW ONE Stop: 05/26/22 14:02 Last Admin: 05/26/22 14:04 Dose: 4 mg Documented By: AT Pantoprazole Sodium (Pantoprazole 40 Mg Vial) 40 mg IV NOW ONE Stop: 05/26/22 13:09 Last Admin: 05/26/22 13:19 Dose: 40 mg Documented By: AT Vital Signs Vital signs: Vital Signs - 8 hr 05/26/22 13:11 05/26/22 14:00 05/26/22 14:30 Temperature 98 F Pulse Rate 64 65 61 Respiratory Rate 20 18 24 Blood Pressure 195/93 H 166/79 H 187/101 H Pulse Oximetry 99 99 100 Oxygen Delivery Method Room Air Room Air Room Air 05/26/22 15:00 05/26/22 15:30 05/26/22 16:00 Temperature Pulse Rate 71 67 66 Respiratory Rate 16 19 19 Blood Pressure 130/78 120/60 132/66 Pulse Oximetry 95 95 96 Oxygen Delivery Method Room Air Room Air Room Air 05/26/22 17:00 Temperature Pulse Rate 75 Respiratory Rate 18 Blood Pressure 137/76 Pulse Oximetry 99 Oxygen Delivery Method Room Air Medical Decision Making Differential Diagnosis Chronic Condition is having:: Moderate exacerbation Medical Records Medical records reviewed: Yes I reviewed the patient's medical records. Lab Data Lab results reviewed: Yes I reviewed the patient's lab results. 05/26/22 13:10 05/26/22 13:10 Labs: Lab Results 05/26/22 05/26/22 05/26/22 Range/Units 13:10 13:10 14:05 WBC 9.5 (4.5-11.0) X10^3/uL RBC 4.82 (4.5-5.9) X10^6/uL Hgb 14.3 (13.5-17.5) g/dL Hct 42.7 (41-53) % MCV 88.6 (80-100) fL MCH 29.7 (26-34) PG MCHC 33.5 (30-36) % RDW 13.6 (11.6-14.8) % Plt Count 324 (150-400) X10^3/uL Neut % (Auto) 79.7 H (50-75) % Lymph % (Auto) 12.5 L (25-40) % Mobile % (Auto) 6.2 (3-14) % Eos % (Auto) 1.1 L (2-4) % Baso % (Auto) 0.5 (0-2) % Neut # (Auto) 7600 H (7190-8950) /uL Lymph # (Auto) 1200 (0110-1915) /uL Mobile # (Auto) 600 (0-900) /uL Eos # (Auto) 100 (0-450) /uL Baso # (Auto) 0 (0-100) /uL Sodium 141 (137-145) mmol/L Potassium 3.7 (3.4-5.1) mmol/L Chloride 103 (98-107) mmol/L Carbon Dioxide 21 L (22-32) mmol/L BUN 18 (9-20) mg/dL Creatinine 0.96 (0.66-1.25) mg/dL Estimated GFR > 60 (>60) mL/min BUN/Creatinine Ratio 18.8 (6-22) Glucose 183 H (70-100) mg/dL Calcium 9.9 (8.4-10.2) mg/dL Total Bilirubin 0.5 (0.2-1.3) mg/dL AST 22 (17-59) IU/L ALT 25 (<50) IU/L Alkaline Phosphatase 80 (38-126) U/L Total Creatine Kinase 89 (55-170) U/L CK-MB (CK-2) TNP CK-MB (CK-2) Rel Index TNP Troponin I < 0.012 (0.01-0.034) ng/mL Total Protein 9.1 H (6.3-8.2) g/dL Albumin 5.0 (3.5-5.0) g/dL Globulin 4.1 (1.7-4.1) g/dL Albumin/Globulin Ratio 1.2 (1.0-2.8) Lipase 335 H (23-300) U/L Urine RBC 0-1/hpf (0-5/HPF) Urine WBC 0-1/hpf (0-5/HPF) Urine Bacteria Occasional (0-1) (None) Urine Sperm Few Ur Culture Indicated? Cult not indicated Urine Dip Bedside Urine Glucose 100 mg/dl Bedside Urine Bilirubin - Negative Bedside Urine Ketone +++ 80 Urine Specific [place] 1.015 Bedside Urine Occult Blood - Negative Bedside Urine pH 8.0 Bedside Urine Protein - Negative Bedside Urine Urobilinogen - Negative Bedside Urine Nitrite - Negative Bedside Urine Leukocytes - Negative Esterase Point of care testing: Urine Dip Bedside Urine Glucose 100 mg/dl Bedside Urine Bilirubin - Negative Bedside Urine Ketone +++ 80 Urine Specific [place] 1.015 Bedside Urine Occult Blood - Negative Bedside Urine pH 8.0 Bedside Urine Protein - Negative Bedside Urine Urobilinogen - Negative Bedside Urine Nitrite - Negative Bedside Urine Leukocytes - Negative Esterase Imaging Data Chest x-ray: Radiologist's Impression: PROCEDURE:? XR CHEST 1V ? INDICATIONS:? chest pain ? TECHNIQUE:? One view of the chest was acquired.? ? COMPARISON:? [facility], CR, XR CHEST 2V, 04/05/2022, 10:41. ? FINDINGS:? ? Surgical changes and devices:? None.? ? Lungs and pleura:? Lungs are clear.? No pleural effusions or pneumothorax.? ? Mediastinum:? Mediastinal contours appear normal.? Heart size is normal.? ? Bones and chest wall:? No suspicious bony lesions.? Overlying soft tissues appear unremarkable.? ? IMPRESSION:? No acute cardiopulmonary disease. CT scan - abdomen/pelvis: Radiologist's Impression: PROCEDURE:? CT ABDOMEN PELVIS W CON ? INDICATIONS:? ABD pain hx of malrotation ? TECHNIQUE:? After the administration of IV contrast, axial sections were acquired from the lung bases to the pubic symphysis.? Coronal and sagittal reformats were performed.? For radiation dose reduction, the following was used:? automated exposure control, adjustment of mA and/or kV according to patient size. ? COMPARISON:? [facility], CT, CT ABDOMEN PELVIS W CON, 01/01/2020, 15:28.? [facility], CT, CT ABDOMEN PELVIS W CON, 10/24/2020, 22:06. ? FINDINGS:? Image quality:? Excellent.? ? Lung bases:? No pleural effusion.? Left lung base calcified granuloma..? ? Heart:? No significant findings. ? ? ABDOMEN: Liver:? No focal lesion. Gallbladder:? Within normal limits. Biliary ducts:? Unremarkable.? ? Pancreas:? Unremarkable.? ? Spleen:? Unremarkable.? ? Adrenal Glands:? Unremarkable.? ? Kidneys and Ureters:? No hydronephrosis.? Small low-density cyst at the superior pole the left kidney.? ? ? Stomach and Bowel:? Stomach is not distended.? Clips in the upper abdomen.? Duodenal is displaced in the left abdomen.? No small bowel obstruction.? The cecum is located in the left upper quadrant.? Diverticulosis.? The appendix is not identified.? Peritoneum:? No abnormal intraperitoneal fluid.? No free air.? ? Ventral Wall: ? No hernia.? Abdominal Nodes:? No retroperitoneal or mesenteric adenopathy by size criteria.? Vessels:? Aorta and inferior vena cava are normal in size.? The SMA is located to the right of the SMV. ? PELVIS: Pelvic Organs:? Unremarkable.? ? Bladder:? No stone.? ? Pelvic Nodes: No enlarged lymph nodes.? Miscellaneous: No inguinal hernias are seen. ? ? ? Bones:? No suspicious lesion. ? ? IMPRESSION:? 1. No small bowel obstruction.? No free fluid. ? 2. Bowel malrotation. ? 3. Diverticulosis.? No diverticulitis. ECG Data Attestation: I personally reviewed and interpreted this ECG as follows: Interpretation: Sinus rhythm Ventricular rate is 69 Maybe normal axis Normal QRS QTC 4 a [address] T wave changes MDM Narrative Medical decision making narrative: After treatment here in the emergency department patient states he is feeling better. He is had a significant issue with malrotation and abdominal pain. He had a surgery in 2019. It was a congenital malrotation. He had an appendectomy that time. The cecum was tacked in the left upper quadrant so the CT scan today is ?normal? for this patient. There is no signs of any specific obstructions. No signs of perforation. No signs of any infection. He states that he does smoke marijuana but only ?a little? states he has quit in the past because he read that this can cause abdominal pain but states he was still getting symptoms even though he quit smoking. He also states he has had a diagnosis of gastroparesis in the past. He was told by GI that there was nothing more that they could do so he has not seen a GI provider in some time. I did discuss the case today with Dr. De Los Santos. Given no emergent surgical condition found on the CT scan that there was no indication for admission to the hospital. Patient states that he is okay with being discharged home. Will discharge home with instructions to talk with his primary doctor about potentially another referral to see GI but I am not sure if this would be helpful. He states the Reglan has helped him in the past that he has Reglan at home. He was given return precautions. Discharge Plan Departure Patient Disposition: Home Clinical Impression: Abdominal pain, Congenital malrotation Instructions: DI for Abdominal Pain-Adult Activity Restrictions/Additional Instructions: Recommend that you continue to take all of your medications as directed. I recommend that he will talk with your primary doctor about follow-up and potentially referral to once again see Gastroenterology. Return to the emergency department for any new symptoms. Prescriptions: No Action cyclobenzaprine 10 mg tablet 10 mg PO BEDTIME PRN (Reason: muscle spasm) Qty: 90 1RF oxycodone 10 mg tablet 10 mg PO BID PRN (Reason: pain) Qty: 30 0RF escitalopram oxalate [Lexapro] 20 mg tablet 20 mg PO DAILY Qty: 30 11RF methylprednisolone [Medrol (Du)] 4 mg tablets,dose pack See Rx Instructions PO PER PKG DIR Qty: 21 0RF Rx Instructions: PO PER PKG DIR albuterol sulfate 90 mcg/actuation HFA aerosol inhaler 1 - 2 inh inhalation Q4-6H PRN (Reason: shortness of breath or wheezing) Qty: 8.5 11RF fluticasone propion-salmeterol [Advair Diskus] 250-50 mcg/dose blister with device 1 inh inhalation BID Qty: 60 4RF lisinopril-hydrochlorothiazide 20-12.5 mg tablet 1 tab PO DAILY Qty: 90 3RF tamsulosin 0.4 mg capsule 0.4 mg PO BEDTIME Qty: 90 3RF atorvastatin 10 mg tablet 10 mg PO BEDTIME Qty: 90 3RF metoclopramide HCl [Reglan] 10 mg tablet 10 mg PO Q6H PRN (Reason: nausea and vomiting) Qty: 20 0RF Referrals: Fazal Prado DO [Primary Care Provider] - Stand Alone Forms: Patient Portal/API
[2022-05-26] MEDS: METOCLOPRAMIDE 10 MG/2 ML INJ IV (13:18)
[2022-05-26] MEDS: PANTOPRAZOLE 40 MG VIAL IV (13:19)
[2022-05-26] MEDS: SODIUM CHLORIDE 0.9% 1,000 ML 1000 ML IV (13:25)
[2022-05-26 13:30] LABS: Alanine Aminotransferase 25 IU/L (<50); Albumin Globulin Ratio 1.2 (1.0-2.8); Alkaline Phosphatase 80 U/L (38-126); Aspartate Aminotransferase 22 IU/L (17-59); BUN Creatinine Ratio 18.8 (6-22); Bilirubin Total 0.5 mg/dL (0.2-1.3); Blood Urea Nitrogen 18 mg/dL (9-20); Calcium 9.9 mg/dL (8.4-10.2); Carbon Dioxide 21 mmol/L (22-32); Chloride 103 mmol/L (98-107); Creatine Kinase 89 U/L (55-170); Estimated Glomerular Filt Rate > 60 mL/min (>60); Globulin 4.1 g/dL (1.7-4.1); Glucose 183 mg/dL (70-100); HEMOLYSIS < 15 (0-50); Lipase 335 U/L (23-300); Potassium 3.7 mmol/L (3.4-5.1); Sodium 141 mmol/L (137-145); Total Protein 9.1 g/dL (6.3-8.2)
[2022-05-26 13:42] LABS: Troponin I < 0.012 ng/mL (0.01-0.034)
[2022-05-26] MEDS: ONDANSETRON 4 MG/2 ML INJ IV (14:04)
[2022-05-26 14:55] LABS: Bacteria Urine Occasional (0-1); Culture Indicated Urine Cult Not Indicated; RBC Urine 0-1/HPF (0-5/HPF); Sperm Urine FEW; WBC Urine 0-1/HPF (0-5/HPF)
--- NOTE | 2022-05-26 15:07 | PC.NURSE ---
Patient reports intermittent nausea, cold sweats, and pain. States he vomited prior to the CT scan and has felt somewhat better since.
== END 2022-05-26 17:25 | disposition home or self-care (01) ==
PROVIDERS: Emergency Provider Emergency Medicine; PCP Family Medicine
DX: R10.9 Unspecified abdominal pain (principal); Q43.3 Congenital malformations of intestinal fixation; R07.9 Chest pain, unspecified; Z79.899 Other long term (current) drug therapy
CPT/HCPCS: 36415; 71045; 74177; 80053; 81003; 81015; 82550; 83690; 84484; 85025; 93005; 93010; 96361; 96374; 96375; 99284; C9113; J1170; J2405; J2765; Q9967

== ENCOUNTER 2022-11-09 18:24 | Emergency (ER) | payer OTHER, MEDICAID, SELFPAY ==
[2020-04-23 16:24] VITALS: BMI 26.2
[2022-11-09 18:28] VITALS: BP 147/73; PULSE 81; RESP 14; TEMP 36.6; O2SAT 98; BMI 26.4
[2022-11-09 20:18] VITALS: BP 145/75; PULSE 20; RESP 18; O2SAT 98
[2022-11-10] MEDS: TET,DIPH,PERTUSS(ACELL),VAC/PF 0.5 ML SYRINGE IM (00:43)
--- NOTE | 2022-11-10 01:14 | ED.WOUNDLAC ---
HPI - Wound/Laceration General Chief Complaint: Wound/Laceration Stated Complaint: Finger lac Time Seen by Provider: 11/10/22 01:13 Source: patient Mode of arrival: Ambulatory History of Present Illness HPI narrative: Patient is a healthy 52-year-old male who presents today with left middle finger laceration. He reports that a glass was falling he went to catch it but it shattered. He has a laceration over left middle dorsal side. No numbness tingling or weakness. Unknown tetanus Related Data Previous Rx's Medication Instructions Recorded metoclopramide HCl 10 mg tablet 10 mg PO Q6H PRN nausea and 10/24/20 (Reglan) vomiting #20 tabs escitalopram oxalate 20 mg tablet 20 mg PO DAILY mood #30 tabs 01/01/22 (Lexapro) albuterol sulfate 90 mcg/actuation 1 - 2 inh inhalation Q4-6H PRN 04/05/22 aerosol inhaler shortness of breath or wheezing #8.5 grams methylprednisolone 4 mg tablets in See Rx Instructions PO PER PKG DIR 04/05/22 a dose pack (Medrol (Du)) #21 ea atorvastatin 10 mg tablet 10 mg PO BEDTIME #90 tabs 05/11/22 lisinopril 20 1 tab PO DAILY #90 tabs 05/11/22 mg-hydrochlorothiazide 12.5 mg tablet tamsulosin 0.4 mg capsule 0.4 mg PO BEDTIME #90 caps 05/11/22 cyclobenzaprine 10 mg tablet 10 mg PO BEDTIME PRN muscle spasm 07/20/22 #90 tabs diclofenac potassium 50 mg tablet 50 mg PO TID PRN pain #30 tabs 07/20/22 duloxetine 30 mg capsule,delayed 30 mg PO DAILY #7 caps 07/20/22 release duloxetine 60 mg capsule,delayed 60 mg PO DAILY #30 caps 07/20/22 release fluticasone 250 mcg-salmeterol 50 1 inh inhalation BID #60 ea 10/04/22 mcg/dose blistr powdr for inhalation (Advair Diskus) oxycodone 10 mg tablet 10 mg PO BID PRN pain #30 tabs 11/04/22 Allergies Allergy/AdvReac Type Severity Reaction Status Date / Time amoxicillin [AMOXICILLIN] Allergy Severe HIVES A Verified 11/09/22 18:28 CHILD Review of Systems Review of Systems ROS Unobtainable: All systems reviewed & are unremarkable except as noted in HPI and below Patient History Medical History Acute hemorrhoid Anxiety Asthma Atypical chest pain Bowel obstruction BPH (benign prostatic hyperplasia) Cervical disc herniation (Unknown) Cervical strain Hemorrhoids Hemorrhoids Hx of pancreatitis (2013) Hyperlipidemia Hypertension Insomnia Intestinal malrotation Neck pain (Unknown) Rectal bleeding Shoulder pain (Unknown) Spondylolysis of cervical region Vision changes Surgical History History of fusion of cervical spine (2004) Hx of arthroscopy of shoulder (07/2014) Hx of cervical discectomy (03/2017) Family History Grandfather Cancer Social History marital status: household members: spouse and family occupational status: employed Smoking Status: Former smoker Tobacco: How many years used: 7 alcohol intake: never substance use type: marijuana Smoking Status: Former smoker alcohol intake frequency: holidays/special occasions only Substance Use Type: marijuana Exam Initial Vital Signs Initial Vital Signs: Vital Signs Temperature 97.9 F 11/09/22 18:28 Pulse Rate 81 11/09/22 18:28 Respiratory Rate 14 11/09/22 18:28 Blood Pressure 147/73 H 11/09/22 18:28 Pulse Oximetry 98 11/09/22 18:28 Oxygen Delivery Method Room Air 11/09/22 18:28 GENERAL: Well-appearing, well-nourished and in no acute distress. CARDIOVASCULAR: peripheral pulses in tact, cap refill <2 sec RESPIRATORY: No respiratory distress, speaks in full sentences without difficulty EXTREMITIES: Normal range of motion, no clubbing or edema. Neurovascularly intact NEUROLOGICAL: Cranial nerves II through XII grossly intact. Normal gait and speech. SKIN: Left middle finger laceration dorsal side 2 cm good skin approximation able to flex and extend no tendon involvement Procedures Laceration Repair Laceration 1: Size (cm): 2 Description: linear Depth: simple, single layer Local Anesthetic: lidocaine 1% Amount of anesthesia used (mL): 2 Pre-repair: wound explored, irrigated extensively and deep structures intact Skin layer closed with: nylon Skin layer suture size: 5-0 Number of sutures: 5 Technique: simple, interrupted Course Orders Ordered: Discontinued Medications Diphtheria/Tetanus/Acell Pertussis (Tet,Diph,Pertuss(Acell),Vac/Pf 0.5 Ml Syringe) 0.5 ml IM .ONCE ONE Stop: 11/10/22 00:40 Last Admin: 11/10/22 00:43 Dose: 0.5 ml Documented By: CARLOS Lidocaine HCl (Lidocaine 2% Inj Mdv 20ml) 1 ml SUBCUT NOW ONE Stop: 11/10/22 01:15 Last Admin: 11/10/22 01:23 Dose: Not Given Documented By: RENNY Lidocaine HCl (Lidocaine 1% 20 Ml) 20 ml INJ INTRA-OP ONE Stop: 11/10/22 01:22 Last Admin: 11/10/22 01:45 Dose: 20 ml Documented By: CARLOS Vital Signs Vital signs: Vital Signs - 8 hr 11/09/22 18:28 11/09/22 20:18 Temperature 97.9 F Pulse Rate 81 20 L Respiratory Rate 14 18 Blood Pressure 147/73 H 145/75 H Pulse Oximetry 98 98 Oxygen Delivery Method Room Air Room Air MDM - Wound/Laceration MDM Narrative Medical decision making narrative: 52-year-old male who presents today with left middle finger laceration. No tendon involvement neurovascularly intact easily repaired and sutured. No need for antibiotics or further evaluation Discharge Plan Departure Patient Disposition: Home Clinical Impression: Laceration of left index finger Instructions: DI for Laceration Repair Activity Restrictions/Additional Instructions: *You have been diagnosed with left index finger laceration *What to do: Keep hand clean and dry with soap and water. Please bathe. No soaking no swimming. Have sutures removed in about 7 days *Continue to take medications as directed Tylenol Motrin as directed if needed for pain *Follow up with your primary care provider in 2-3 days or call [phone] *Return to ER if you should have redness swelling pain numbness tingling weakness or any new, worsening or concerning symptoms Prescriptions: No Action fluticasone propion-salmeterol [Advair Diskus] 250-50 mcg/dose blister with device 1 inh inhalation BID Qty: 60 4RF oxycodone 10 mg tablet 10 mg PO BID PRN (Reason: pain) Qty: 30 0RF escitalopram oxalate [Lexapro] 20 mg tablet 20 mg PO DAILY Qty: 30 11RF methylprednisolone [Medrol (Du)] 4 mg tablets,dose pack See Rx Instructions PO PER PKG DIR Qty: 21 0RF Rx Instructions: PO PER PKG DIR albuterol sulfate 90 mcg/actuation HFA aerosol inhaler 1 - 2 inh inhalation Q4-6H PRN (Reason: shortness of breath or wheezing) Qty: 8.5 11RF lisinopril-hydrochlorothiazide 20-12.5 mg tablet 1 tab PO DAILY Qty: 90 3RF tamsulosin 0.4 mg capsule 0.4 mg PO BEDTIME Qty: 90 3RF atorvastatin 10 mg tablet 10 mg PO BEDTIME Qty: 90 3RF cyclobenzaprine 10 mg tablet 10 mg PO BEDTIME PRN (Reason: muscle spasm) Qty: 90 1RF diclofenac potassium 50 mg tablet 50 mg PO TID PRN (Reason: pain) Qty: 30 1RF duloxetine 30 mg capsule,delayed release(DR/EC) 30 mg PO DAILY Qty: 7 0RF Rx Instructions: Initiate this dose 1st while weaning fluoxetine duloxetine 60 mg capsule,delayed release(DR/EC) 60 mg PO DAILY Qty: 30 5RF Rx Instructions: Start this dose after completing the 1st course of 30 mg tablets metoclopramide HCl [Reglan] 10 mg tablet 10 mg PO Q6H PRN (Reason: nausea and vomiting) Qty: 20 0RF Referrals: Fazal Prado DO [Primary Care Provider] - Stand Alone Forms: Patient Portal/API
[2022-11-10] MEDS: LIDOCAINE 1% 20 ML INJ (01:45)
== END 2022-11-10 01:46 | disposition home or self-care (01) ==
PROVIDERS: Emergency Provider Emergency Medicine; PCP Family Medicine
DX: S61.213A Laceration without foreign body of left middle finger without damage to nail, initial encounter (principal); W25.XXXA Contact with sharp glass, initial encounter; Z79.899 Other long term (current) drug therapy; Z23 Encounter for immunization
CPT/HCPCS: 12001; 90471; 99283; 90715

== ENCOUNTER → 2023-03-30 10:18 | Outpatient (CLI) | payer OTHER, MEDICAID, SELFPAY ==
[2020-04-23 16:24] VITALS: BMI 26.2
== END ==
PROVIDERS: PCP Family Medicine; Visit Provider Nurse Practitioner Family
DX: R30.0 Dysuria (principal)
CPT/HCPCS: 81002; 87086

== ENCOUNTER → 2023-03-31 10:10 | Outpatient (CLI) | payer OTHER, MEDICAID, SELFPAY ==
[2020-04-23 16:24] VITALS: BMI 26.2
[2023-03-31 11:41] LABS: Add Manual Diff / Slide Review NO; Basophils Absolute Auto 0 /uL (0-100); Basophils Percent Auto 0.4 % (0-2); Eosinophils Absolute Auto 100 /uL (0-450); Hematocrit 38.9 % (41-53); Hemoglobin 13.4 g/dL (13.5-17.5); Lymphocytes Absolute Auto 1400 /uL (1100-4500); Lymphocytes Percent Auto 21.8 % (25-40); Mean Corpuscular HGB Conc 34.4 % (30-36); Mean Corpuscular Volume 87.1 fL (80-100); Monocytes Absolute Auto 500 /uL (0-900); Monocytes Percent Auto 6.9 % (3-14); Neutrophils Absolute Auto 4600 /uL (1500-7000); Neutrophils Percent Auto 68.9 % (50-75); Platelet Count 271 X10^3/uL (150-400); Red Blood Cell Count 4.47 X10^6/uL (4.5-5.9); Red Cell Distribution Width 13.9 % (11.6-14.8); White Blood Cell Count 6.6 X10^3/uL (4.5-11.0)
[2023-03-31 11:53] LABS: Alanine Aminotransferase 19 IU/L (<50); Albumin 4.3 g/dL (3.5-5.0); Albumin Globulin Ratio 1.3 (1.0-2.8); Alkaline Phosphatase 45 U/L (38-126); Aspartate Aminotransferase 15 IU/L (17-59); BUN Creatinine Ratio 18.1 (6-22); Bilirubin Total 0.4 mg/dL (0.2-1.3); Blood Urea Nitrogen 17 mg/dL (9-20); Calcium 9.4 mg/dL (8.4-10.2); Carbon Dioxide 28 mmol/L (22-32); Chloride 101 mmol/L (98-107); Cholesterol 211 mg/dL (140-199); Estimated Glomerular Filt Rate > 60 mL/min (>60); Globulin 3.3 g/dL (1.7-4.1); Glucose 96 mg/dL (70-100); HDL Cholesterol 70 mg/dL (40-60); HEMOLYSIS < 15 (0-50); LDL Cholesterol Calculated 127 mg/dL (<100); Potassium 4.2 mmol/L (3.4-5.1); Sodium 137 mmol/L (137-145); Total Protein 7.6 g/dL (6.3-8.2); Triglycerides 71 mg/dL (35-150)
[2023-03-31 12:22] LABS: TSH w/ Reflex to FT4 1.72 uIU/mL (0.47-4.68)
[2023-03-31 12:27] LABS: Prostate Specific Antigen Scrn 0.412 ng/mL (0.1-4.0)
== END ==
PROVIDERS: PCP Family Medicine; Referring Provider Physician Assistant; Visit Provider Physician Assistant
DX: Z12.5 Encounter for screening for malignant neoplasm of prostate (principal); I10 Essential (primary) hypertension; E78.5 Hyperlipidemia, unspecified; N40.0 Benign prostatic hyperplasia without lower urinary tract symptoms
CPT/HCPCS: 36415; 80053; 80061; 84443; 85025; G0103

== ENCOUNTER → 2023-04-22 10:05 | Outpatient (CLI) | payer OTHER, MEDICAID, SELFPAY ==
[2020-04-23 16:24] VITALS: BMI 26.2
--- NOTE | 2023-04-22 10:06 | DI.RAD.S_ITS ---
PROCEDURE: XR CERVICAL SPINE 4V OR 5V INDICATIONS: NECK PAIN TECHNIQUE: 7 views of the cervical spine acquired. COMPARISON: [facility], CR, XR CERVICAL SPINE 2 OR 3 VIEWS, 04/22/2021, 16:10. FINDINGS: Bones: No fractures or dislocations to the C7-T1 level. Postsurgical changes from C4-C5 intervertebral disc prosthesis. Hardware appears intact without surrounding fracture or lucency. Osseous vertebral body fusion at C5-C6 and C6-C7. Moderate degenerative changes at C7-T1. Straightening of normal cervical lordosis. Oblique images demonstrate no bony foraminal stenoses. Soft tissues: No prevertebral soft tissue swelling. IMPRESSION: Stable appearance of C4-C5 disc prosthesis. Fusion of the C5 through C7 vertebral bodies. Moderate degenerative changes at C7-T1 are similar to prior. No acute osseous abnormalities. Dictated by: Maximo Lux M.D. on 04/22/2023 at 10:38 Approved by: Maximo Lux M.D. on 04/22/2023 at 10:39
== END ==
PROVIDERS: PCP Family Medicine; Referring Provider Physical Medicine & Rehabilitation; Visit Provider Physical Medicine & Rehabilitation
DX: M47.812 Spondylosis without myelopathy or radiculopathy, cervical region (principal); M47.813 Spondylosis without myelopathy or radiculopathy, cervicothoracic region; M54.2 Cervicalgia; M99.81 Other biomechanical lesions of cervical region; F11.90 Opioid use, unspecified, uncomplicated; Z98.1 Arthrodesis status; Z98.890 Other specified postprocedural states
CPT/HCPCS: 72050; 99215

== ENCOUNTER → 2023-12-22 09:17 | Outpatient (CLI) | payer OTHER, MEDICAID, SELFPAY ==
[2020-04-23 16:24] VITALS: BMI 26.2
--- NOTE | 2023-12-22 09:17 | DI.MRI.S_ITS ---
PROCEDURE: MR CERVICAL SPINE WO CON INDICATIONS: eval cervical spondylolysis and worsening radiculopathy. TECHNIQUE: Noncontrast sagittal T1 spin echo and T2 fast spin echo, sagittal STIR, foraminal oblique sagittal T2 fast spin echo, and axial gradient echo or T2 fast spin echo through the cervical spine. COMPARISON: [facility], MR, MR CERVICAL SPINE WITHOUT CONTRAST, 05/19/2021, 12:09. [facility], CR, XR CERVICAL SPINE 4V OR 5V, 04/22/2023, 10:14. [facility], MR, C-SPINE WITHOUT CONTRAST, 04/30/2016, 16:49. FINDINGS: Image quality: There is artifact associated with the metallic hardware. Alignment and Curvature: There is overall straightening of the normal cervical lordosis. No focal AP alignment abnormality is seen. Bone Marrow: Marrow demonstrates normal overall signal. Spinal Cord: Visualized spinal cord has normal size and signal. No cerebellar tonsillar herniation. Paraspinous Soft Tissues: No paravertebral masses. Prevertebral soft tissues are normal in thickness. C2-C3: Normal appearance. C3-C4: The disc height and disk signal are well-preserved. Mild to moderate disc bulge is seen at this level. There is a central disc osteophyte protrusion. Moderate facet joint hypertrophy is seen. There is at least moderate left-sided and moderate right-sided neural foraminal narrowing. Mild central canal narrowing is seen. There is slight progression compared to the prior. C4-C5: Postoperative changes seen at this level, with an artificial disc. Moderate generalized disc osteophyte complex is seen. Moderate facet joint hypertrophy is seen. There is moderate to severe right-sided and at least moderate left-sided neural foraminal narrowing. Mild to moderate central canal narrowing is seen. When comparison is made with the prior images, these findings are similar. C5-C6: There is a disc spacer seen at this level, with vertebral body fusion. A mild degree of generalized disc osteophyte complex is seen. Mild to moderate disc osteophyte complex is seen. Mild bilateral neural foraminal narrowing is seen. Minimal central canal narrowing is seen. When comparison is made with the prior images, these findings are similar. C6-C7: Bony fusion is seen at this level, with disc spacer. A mild degree of generalized disc osteophyte complex is seen. Mild facet joint hypertrophy is seen. Mild bilateral neural foraminal narrowing is seen. No central canal narrowing is seen. When comparison is made with the prior images, these findings are similar. C7-T1: No significant abnormality is seen. IMPRESSION: Mild progression of degenerative change at C3-C4 compared to the 2021 prior. Postoperative changes are seen at C4-C5, C5-C6, and C6-C7, as before. Dictated by: Ren Carrasquillo M.D. on 12/22/2023 at 11:39 Approved by: Ren Carrasquillo M.D. on 12/22/2023 at 11:46
== END ==
PROVIDERS: PCP Family Medicine; Referring Provider Family Medicine; Visit Provider Family Medicine
DX: M54.10 Radiculopathy, site unspecified (principal); M47.812 Spondylosis without myelopathy or radiculopathy, cervical region; Z98.890 Other specified postprocedural states; Z98.1 Arthrodesis status
CPT/HCPCS: 72141

== ENCOUNTER 2024-02-09 02:24 | Emergency (ER) | payer OTHER, MEDICAID, SELFPAY ==
[2020-04-23 16:24] VITALS: BMI 26.2
[2024-02-09] VITALS (7 sets, daily range): BP systolic 114–139; BP diastolic 59–84; PULSE 67–91; RESP 16; TEMP 36.9; O2SAT 95–99; BMI 27.1
--- NOTE | 2024-02-09 03:01 | DI.RAD.S_ITS ---
PROCEDURE: XR HIP W PEL IF DONE RT 2V INDICATIONS: ATRAUMATIC R HIP PAIN X 2 DAYS TECHNIQUE: AP pelvis with lateral view of the right hip. COMPARISON: None. FINDINGS: Bones: No fractures or dislocations. Pelvic ring appears intact. No suspicious bony lesions. Mild to moderate degenerative changes in the hips bilaterally. Soft tissues: The visualized bowel gas pattern is normal. No suspicious soft tissue calcifications. IMPRESSION: 1. No acute osseous abnormality. If there is continued clinical concern or persistent symptoms, repeat radiographs or cross-sectional imaging (e.g. CT, MRI) may be helpful for further evaluation. 2. Mild to moderate bilateral hip osteoarthrosis. There is no significant discrepancy when compared to the overnight preliminary report. Approved by: Julio Torres M.D. on 02/09/2024 at 8:29
[2024-02-09] MEDS: KETOROLAC 30 MG/ML VIAL 15 MG IV (03:14)
[2024-02-09] MEDS: ACETAMINOPHEN IV 1,000 MG/100 ML VIAL 400 MG IV (03:14)
[2024-02-09 03:15] LABS: Add Manual Diff / Slide Review NO; Basophils Absolute Auto 0 /uL (0-100); Basophils Percent Auto 0.5 % (0-2); Eosinophils Absolute Auto 200 /uL (0-450); Eosinophils Percent Auto 3.3 % (2-4); Hematocrit 38.4 % (41-53); Hemoglobin 12.8 g/dL (13.5-17.5); Lymphocytes Absolute Auto 1500 /uL (1100-4500); Lymphocytes Percent Auto 20.3 % (25-40); Mean Corpuscular HGB Conc 33.4 % (30-36); Mean Corpuscular Hemoglobin 29.4 PG (26-34); Mean Corpuscular Volume 87.9 fL (80-100); Monocytes Absolute Auto 700 /uL (0-900); Neutrophils Absolute Auto 4800 /uL (1500-7000); Neutrophils Percent Auto 65.9 % (50-75); Platelet Count 254 X10^3/uL (150-400); Red Blood Cell Count 4.37 X10^6/uL (4.5-5.9); Red Cell Distribution Width 14.1 % (11.6-14.8); White Blood Cell Count 7.3 X10^3/uL (4.5-11.0)
[2024-02-09 03:24] LABS: Blood Urea Nitrogen 19 mg/dL (9-20); Calcium 9.3 mg/dL (8.4-10.2); Carbon Dioxide 26 mmol/L (22-32); Chloride 103 mmol/L (98-107); Estimated Glomerular Filt Rate > 60 mL/min (>60); Glucose 105 mg/dL (70-100); HEMOLYSIS < 15 (0-50); Potassium 3.8 mmol/L (3.4-5.1); Sodium 137 mmol/L (137-145)
--- NOTE | 2024-02-09 03:47 | ED_ITS ---
HPI - Extremity Problem General Chief complaint: Extremity Problem,Nontraumatic Stated complaint: rt hip pain Time Seen by Provider: 02/09/24 02:25 Source: patient Mode of arrival: Ambulatory History of Present Illness HPI Narrative: 53-year-old male presents for evaluation of atraumatic right hip pain. Patient states that he woke up 3 days ago with an aching pain in his right hip. He has been taking home pain medications without significant relief. He had a visit with his primary doctor's office earlier today that told him that if he was severe pain He should come to the ER. Patient states that he has barely been able to get comfortable and has had only 5-6 hours of sleep in the last 2 days Related Data Previous Rx's Medication Instructions Recorded metoclopramide HCl 10 mg tablet 10 mg PO Q6H PRN nausea and 10/24/20 (Reglan) vomiting #20 tabs atorvastatin 10 mg tablet 10 mg PO BEDTIME #90 tabs 05/11/22 cyclobenzaprine 10 mg tablet 10 mg PO BEDTIME PRN muscle spasm 03/25/23 #90 tabs lisinopril 20 1 tab PO DAILY #90 tabs 04/07/23 mg-hydrochlorothiazide 12.5 mg tablet oxycodone 10 mg tablet 10 mg PO BID PRN pain #60 tabs 12/08/23 tamsulosin 0.4 mg capsule 0.4 mg PO DAILY #90 caps 12/21/23 Allergies Allergy/AdvReac Type Severity Reaction Status Date / Time amoxicillin [AMOXICILLIN] Allergy Severe HIVES A Verified 12/21/23 09:49 CHILD Patient History Medical History BPH with obstruction/lower urinary tract symptoms Anxiety due to invasive procedure Asymptomatic microscopic hematuria Feeling of incomplete bladder emptying Bladder outlet obstruction Dysuria Lower urinary tract symptoms Anemia Spondylosis of cervical spine Hypertension Hyperlipidemia BPH (benign prostatic hyperplasia) Asthma Hemorrhoids Acute hemorrhoid Spondylolysis of cervical region Cervical strain Intestinal malrotation Bowel obstruction Anxiety Vision changes Insomnia Atypical chest pain Hemorrhoids Rectal bleeding Hx of pancreatitis (2013) Neck pain (Unknown) Cervical disc herniation (Unknown) Shoulder pain (Unknown) Surgical History Hx of arthroscopy of shoulder (07/2014) Hx of cervical discectomy (03/2017) History of fusion of cervical spine (2004) Family History Grandfather Cancer Social History marital status: household members: spouse and family occupational status: employed Smoking Status: Former smoker Tobacco: How many years used: 7 alcohol intake: never substance use type: marijuana Smoking Status: Former smoker alcohol intake frequency: holidays/special occasions only Exam Initial Vital Signs Initial Vital Signs: Vital Signs Temperature 98.4 F 02/09/24 02:39 Pulse Rate 91 H 02/09/24 02:39 Respiratory Rate 16 02/09/24 02:39 Blood Pressure 139/84 02/09/24 02:39 Pulse Oximetry 99 02/09/24 02:39 Oxygen Delivery Method Room Air 02/09/24 02:39 Const: Awake, alert, uncomfortable Cardiac: regular rate, regular rhythm RESP: unlabored, speaking in complete sentences without dyspnea MSK: No deformity, full range of motion Skin: Warm, Dry, intact, no rashes Neuro: AO x3, CN II-XII grossly intact, moves all extremities Course Orders Ordered: ED Orders 02/09/24 03:01 XR hip w pel if done RT 2V Stat 02/09/24 03:05 BMP [Basic Metabolic Panel] Stat CBC Auto Diff [Complete Blood Count AUTO DIFF] Stat 02/09/24 03:55 CT pelvis w con Stat Discontinued Medications Acetaminophen (Ofirmev) 1,000 mg in 100 mls @ 400 mls/hr IV NOW ONE Stop: 02/09/24 03:15 Last Infusion: 02/09/24 03:38 Dose: Infused Documented By: Admin: 02/09/24 03:14 Dose: 400 mls/hr Documented By: Ketorolac Tromethamine (Ketorolac 30 Mg/Ml Vial) 15 mg IV NOW ONE Stop: 02/09/24 03:02 Last Admin: 02/09/24 03:14 Dose: 15 mg Documented By: Vital Signs Vital signs: Vital Signs - 8 hr 02/09/24 02:39 02/09/24 03:22 02/09/24 03:23 Temperature 98.4 F Pulse Rate 91 H 83 81 Respiratory Rate 16 Blood Pressure 139/84 Pulse Oximetry 99 97 97 Oxygen Delivery Method Room Air 02/09/24 03:23 02/09/24 03:30 02/09/24 03:30 Temperature Pulse Rate 76 Respiratory Rate Blood Pressure 138/76 123/66 Pulse Oximetry 95 Oxygen Delivery Method 02/09/24 04:00 02/09/24 04:00 02/09/24 04:30 Temperature Pulse Rate 72 Respiratory Rate Blood Pressure 114/61 131/69 Pulse Oximetry 96 Oxygen Delivery Method 02/09/24 04:30 02/09/24 05:00 02/09/24 05:00 Temperature Pulse Rate 82 67 Respiratory Rate Blood Pressure 122/59 L Pulse Oximetry 96 96 Oxygen Delivery Method Room Air MDM - Extremity (Nontraumatic) Lab Data 02/09/24 03:05 02/09/24 03:05 Labs: Lab Results 02/09/24 Range/Units 03:05 WBC 7.3 (4.5-11.0) X10^3/uL RBC 4.37 L (4.5-5.9) X10^6/uL Hgb 12.8 L (13.5-17.5) g/dL Hct 38.4 L (41-53) % MCV 87.9 (80-100) fL MCH 29.4 (26-34) PG MCHC 33.4 (30-36) % RDW 14.1 (11.6-14.8) % Plt Count 254 (150-400) X10^3/uL Neut % (Auto) 65.9 (50-75) % Lymph % (Auto) 20.3 L (25-40) % Calloway % (Auto) 10.0 (3-14) % Eos % (Auto) 3.3 (2-4) % Baso % (Auto) 0.5 (0-2) % Neut # (Auto) 4800 (2022-8337) /uL Lymph # (Auto) 1500 (8336-4351) /uL Calloway # (Auto) 700 (0-900) /uL Eos # (Auto) 200 (0-450) /uL Baso # (Auto) 0 (0-100) /uL Sodium 137 (137-145) mmol/L Potassium 3.8 (3.4-5.1) mmol/L Chloride 103 (98-107) mmol/L Carbon Dioxide 26 (22-32) mmol/L BUN 19 (9-20) mg/dL Creatinine 1.12 (0.66-1.25) mg/dL Estimated GFR > 60 (>60) mL/min BUN/Creatinine Ratio 17.0 (6-22) Glucose 105 H (70-100) mg/dL Calcium 9.3 (8.4-10.2) mg/dL Imaging Data Extremity x-ray #1: Radiologist's Impression: X-ray right hip: No acute findings MDM Narrative Medical decision making narrative: Patient with atraumatic progressive right hip pain. Patient states that he was barely able to put weight on it due to the discomfort and it was not able to sleep due to the pain. Laboratory work reviewed, no significant abnormalities identified. X-ray and CT do not show any findings to explain patient's symptoms. Patient was given nonnarcotic pain medications, on reassessment he was sleeping comfortably in ED bed. He was informed of all lab and imaging findings and counseled to follow up with his primary doctor for further investigation of his hip pain. Discharge Plan Departure Patient Disposition: Home Clinical Impression: Acute hip pain Instructions: DI for Hip Pain Activity Restrictions/Additional Instructions: Your x-ray and CT today were normal. I do not have an obvious cause for why your hip pain is flaring so badly. Continue to follow up with your doctor for any additional testing they may recommend. Prescriptions: No Action lisinopril-hydrochlorothiazide 20-12.5 mg tablet 1 tab PO DAILY Qty: 90 3RF oxycodone 10 mg tablet 10 mg PO BID PRN (Reason: pain) Qty: 60 0RF atorvastatin 10 mg tablet 10 mg PO BEDTIME Qty: 90 3RF cyclobenzaprine 10 mg tablet 10 mg PO BEDTIME PRN (Reason: muscle spasm) Qty: 90 1RF metoclopramide HCl [Reglan] 10 mg tablet 10 mg PO Q6H PRN (Reason: nausea and vomiting) Qty: 20 0RF tamsulosin 0.4 mg capsule 0.4 mg PO DAILY Qty: 90 3RF Referrals: Fazal Prado DO [Primary Care Provider] - Stand Alone Forms: Patient Portal/API/Survey
--- NOTE | 2024-02-09 03:55 | DI.CT.S_ITS ---
PROCEDURE: CT PELVIS W CON INDICATIONS: SEVERE ATRAUMATIC HIP PAIN, HARDLY BEAR WEIGHT TECHNIQUE: After the administration of intravenous contrast, 5 mm thick sections acquired from the iliac crests to the symphysis. 5 mm coronal and sagittal reformats were acquired. For radiation dose reduction, the following was used: automated exposure control, adjustment of mA and/or kV according to patient size. COMPARISON: [facility], CR, XR HIP W PEL IF DONE RT 2V, 02/09/2024, 3:05. FINDINGS: Image quality: Diagnostic. PELVIS: Peritoneum and Bowel: A few diverticula are seen in the colon without signs acute diverticulitis. Bowel loops demonstrate normal wall thickness and caliber. No free fluid or air. Pelvic Organs: No pelvic mass. Bladder: Normal wall thickness, accounting for underdistension. No perivesicular fat stranding. Pelvic Nodes: No enlarged lymph nodes. Miscellaneous: No inguinal hernias are seen. Bones: No aggressive osseous abnormality. Mild degenerative changes at the sacroiliac joints bilaterally. IMPRESSION: 1. No acute osseous abnormality. 2. [id number] degenerative changes in the hips and sacroiliac joints bilaterally. There is no significant discrepancy when compared to the overnight preliminary report. Approved by: Julio Torres M.D. on 02/09/2024 at 8:36
== END 2024-02-09 05:19 | disposition home or self-care (01) ==
PROVIDERS: Emergency Provider Emergency Medicine; PCP Family Medicine
DX: M25.551 Pain in right hip (principal)
CPT/HCPCS: 36415; 72193; 73502; 80048; 85025; 96365; 96375; 99284; J0134; J1885; Q9967

== ENCOUNTER → 2024-06-19 12:57 | Outpatient (CLI) | payer OTHER, SELFPAY ==
[2020-04-23 16:24] VITALS: BMI 26.2
[2024-06-19 14:20] LABS: Prostate Specific Antigen Scrn 0.621 ng/mL (0.1-4.0)
== END ==
PROVIDERS: PCP Family Medicine; Referring Provider Urology; Visit Provider Urology
DX: Z12.5 Encounter for screening for malignant neoplasm of prostate (principal)
CPT/HCPCS: 36415; G0103

== ENCOUNTER → 2024-07-19 09:49 | Outpatient (CLI) | payer OTHER, SELFPAY ==
[2020-04-23 16:24] VITALS: BMI 26.2
[2024-07-19 10:48] LABS: Alanine Aminotransferase 16 IU/L (<50); Albumin 4.5 g/dL (3.5-5.0); Albumin Globulin Ratio 1.7 (1.0-2.8); Alkaline Phosphatase 52 U/L (38-126); Aspartate Aminotransferase 17 IU/L (17-59); BUN Creatinine Ratio 17.5 (6-22); Bilirubin Total 0.4 mg/dL (0.2-1.3); Blood Urea Nitrogen 18 mg/dL (9-20); Calcium 9.3 mg/dL (8.4-10.2); Carbon Dioxide 23 mmol/L (22-32); Chloride 107 mmol/L (98-107); Cholesterol 181 mg/dL (140-199); Estimated Glomerular Filt Rate > 60 mL/min (>60); Globulin 2.6 g/dL (1.7-4.1); Glucose 110 mg/dL (70-99); HDL Cholesterol 52 mg/dL (40-60); HEMOLYSIS < 15 (0-50); LDL Cholesterol Calculated 114 mg/dL (<100); Potassium 4.5 mmol/L (3.4-5.1); Sodium 139 mmol/L (137-145); Total Protein 7.1 g/dL (6.3-8.2); Triglycerides 73 mg/dL (35-150)
== END ==
PROVIDERS: PCP Family Medicine; Referring Provider Family Medicine; Visit Provider Family Medicine
DX: E78.5 Hyperlipidemia, unspecified (principal); N40.0 Benign prostatic hyperplasia without lower urinary tract symptoms
CPT/HCPCS: 36415; 80053; 80061